=== PATIENT | female | born 1995 | race African-American/Black ===

== ENCOUNTER 2019-10-01 18:17 | Emergency (ER) | payer OTHER ==
[~2019-10-01] VITALS: Ht 149.9 cm; Wt 58.4 kg
[2019-10-01] MEDS ORDERED: LANTUS U (18:26)
[2019-10-01] MEDS ORDERED: HUMALOG SS (18:26)
[2019-10-01 19:13] LABS: EOS % 0.2 % (0.0-3.0); HEMATOCRIT 40.1 % (36.0-47.0); HEMOGLOBIN 14.1 g/dl (12.0-15.5); LYMPH # 2.3 10^3/uL (1.5-5.0); LYMPH % 36.7 % (24.0-44.0); MEAN CORPUSCULAR HEMOGLOBIN 31.3 pg (27.0-33.0); MEAN CORPUSCULAR HGB CONC 35.2 g/dl (32.0-36.5); MEAN CORPUSCULAR VOLUME 89.1 fl (80.0-96.0); MONO # 0.5 10^3/uL (0.0-0.8); MONO % 7.6 % (0.0-5.0); NEUTROPHILS # 3.5 10^3/uL (1.5-8.5); NEUTROPHILS % 55.3 % (36.0-66.0); PLATELET COUNT, AUTOMATED 282 10^3/uL (150-450); WHITE BLOOD COUNT 6.3 10^3/uL (4.0-10.0)
[2019-10-01 19:34] LABS: BLOOD UREA NITROGEN 7 MG/DL (7-18); CALCIUM LEVEL 9.1 MG/DL (8.5-10.1); CARBON DIOXIDE LEVEL 19 MEQ/L (21-32); CHLORIDE LEVEL 107 MEQ/L (98-107); CREATININE FOR GFR 0.76 MG/DL (0.55-1.30); GLOMERULAR FILTRATION RATE > 60.0 (>60); GLUCOSE, FASTING 283 MG/DL (70-100); POTASSIUM SERUM 3.2 MEQ/L (3.5-5.1); SODIUM LEVEL 139 MEQ/L (136-145)
[2019-10-01] MEDS ORDERED: POTASSIUM CHLORIDE 10 MEQ SR TABLET PO ONE (20:30)
[2019-10-01 20:43] LABS: HCG, SERUM QUALITATIVE NEGATIVE (NEGATIVE)
[2019-10-01 20:45] LABS: ALBUMIN 3.3 GM/DL (3.2-5.2); ALT/SGPT 18 U/L (12-78); BILIRUBIN,DIRECT 0.1 MG/DL (0.0-0.2); BILIRUBIN,TOTAL 0.3 MG/DL (0.2-1.0); LIPASE 37 U/L (73-393); TOTAL PROTEIN 6.7 GM/DL (6.4-8.2)
[2019-10-01] MEDS ORDERED: ZOFR4TAB16 PO (21:14)
[2019-10-01 21:31] VITALS: BP 120/78
== END 2019-10-01 21:46 | disposition home or self-care (01) ==
LOC: M ED 18:17
DX: E87.6 Hypokalemia (principal); E11.65 Type 2 diabetes mellitus with hyperglycemia; M54.6 Pain in thoracic spine; G62.9 Polyneuropathy, unspecified; F33.9 Major depressive disorder, recurrent, unspecified; F41.9 Anxiety disorder, unspecified; F43.10 Post-traumatic stress disorder, unspecified; Z79.4 Long term (current) use of insulin

== ENCOUNTER 2019-11-21 10:59 | Inpatient (IN) | payer OTHER ==
[2019-11-21] VITALS (8 sets, daily range): BP systolic 115–145; BP diastolic 69–95
[~2019-11-21] VITALS: Ht 149.9 cm; Wt 57.9 kg
[~2019-11-21 10:59] MED LIST: HUMALOG SS; LANTUS U; ZOFR4TAB16 PO
[2019-11-21] MEDS ORDERED: LANTINJ4 SC ×2 (11:07)
[2019-11-21] MEDS ORDERED: NS 1,000 ML IV ONE ×2 (11:30→13:45)
[2019-11-21 11:41] LABS: BASO % 0.2 % (0.0-1.0); HEMATOCRIT 51.1 % (36.0-47.0); HEMOGLOBIN 18.2 g/dl (12.0-15.5); LYMPH # 2.2 10^3/uL (1.5-5.0); LYMPH % 14.4 % (24.0-44.0); MEAN CORPUSCULAR HEMOGLOBIN 31.2 pg (27.0-33.0); MEAN CORPUSCULAR HGB CONC 35.6 g/dl (32.0-36.5); MEAN CORPUSCULAR VOLUME 87.7 fl (80.0-96.0); MONO % 6.6 % (0.0-5.0); NEUTROPHILS # 11.8 10^3/uL (1.5-8.5); NEUTROPHILS % 78.3 % (36.0-66.0); PLATELET COUNT, AUTOMATED 464 10^3/uL (150-450); RED BLOOD COUNT 5.83 10^6/uL (4.00-5.40); WHITE BLOOD COUNT 15.1 10^3/uL (4.0-10.0)
[2019-11-21 13:16] LABS: HEMOGLOBIN A1c 11.5 %
[2019-11-21] MEDS ORDERED: ONDANSETRON 4MG/2ML VIAL IV ONE (13:30)
[2019-11-21 14:05] LABS: ALBUMIN 4.2 GM/DL (3.2-5.2); ALT/SGPT 27 U/L (12-78); BILIRUBIN,DIRECT < 0.1 MG/DL (0.0-0.2); BILIRUBIN,TOTAL 0.5 MG/DL (0.2-1.0); LIPASE < 10 U/L (73-393); TOTAL PROTEIN 10.8 GM/DL (6.4-8.2)
[2019-11-21] MEDS ORDERED: NS 1,000 ML IV SCH ×2 (14:11→14:45)
[2019-11-21] MEDS ORDERED: ACETAMINOPHEN TAB 650MG DOSE (2X325MG) PO PRN (14:15)
[2019-11-21] MEDS ORDERED: KCL 10MEQ/100ML SWI (KRUN) 10 MEQ in IV 1 EA IV ONE (14:30)
[2019-11-21] MEDS ORDERED: KCL 40MEQ in NS 1000ML 1,000 ML IV SCH (14:30)
[2019-11-21] MEDS ORDERED: KCL 20MEQ IN 100ML SWI (KRUN) 20 MEQ in IV 1 EA IV ONE ×2 (14:30)
--- NOTE | 2019-11-21 14:44 | HPEPDOC ---
General Date of Admission 11/21/19 Date of Service: Nov 21, 2019 Chief Complaint The patient is a 24-year-old female admitted with a reason for visit of Vomiting. Source: Patient Exam Limitations: No limitations Timing/Duration: 24 hours Severity: Moderate Associated Symptoms: Nausea, Vomiting History of Present Illness Patient is 24 years old female with past medical history of type 1 diabetes, multiple DKA in the past presented to the hospital with nausea, vomiting, and abdominal pain. Patient stated that for past 2 days she lost appetite, developed multiple episodes of vomiting associated with diffuse abdominal pain. Also patient complaining of polyuria In emergency room patient was found to have glucose level of 283, bicarbonate 11, anion gap of 17. Blood gas showed pH 7.2, urine positive for ketones. Patient denied fever, palpitations, headache, diarrhea. Home Medications Scheduled Insulin Glargine,Hum.rec.anlog (Lantus Solostar) 100 Unit/1 Ml Insuln.pen, 30 UNIT SC QPM, (Reported) Insulin Glargine,Hum.rec.anlog (Lantus Solostar) 100 Unit/1 Ml Insuln.pen, 15 UNIT SC QAM, (Reported) Miscellaneous Medications [Humalog Ss] , (Reported) Allergies Coded Allergies: No Known Allergies (Unverified , 10/01/19) Past Medical History Medical History Type 1 diabetes Surgical History Family History I reviewed family history and found not pertinent Social History * Smoker: Denies Alcohol: Denies Drugs: denies A-FIB/CHADSVASC A-FIB History Current/History of A-Fib/PAF?: No Current PO Anticoag Therapy: No Review of Systems Constitutional: Reports: Chills, Malaise, Fatigue; Denies: Fever Eyes: Denies: Pain ENT: Denies: Head Aches Skin: Denies: Rash, Lesions Pulmonary: Denies: Dyspnea, Cough Cardiovascular: Denies: Chest Pain, Palpitations Gastrointestinal: Reports: Nausea, Vomiting, Abdominal Pain Genitourinary: Denies: Hematuria Hematologic: Denies: Bruising, Bleeding Excessively Endocrine: Reports: Polyuria Musculoskeletal: Denies: Neck Pain Neurological: Denies: Weakness Psych: Reports: Mood Normal Physical Examination General Exam: Positive: Alert, Cooperative Eye Exam: Positive: PERRLA ENT Exam: Positive: Atraumatic Neck Exam: Positive: Supple; Negative: JVD Chest Exam: Positive: Clear to auscultation Heart Exam: Positive: Rate Normal Telemetry: Positive: No significant arrhythmia Abdomen Exam: Positive: Normal bowel sounds Extremity Exam: Negative: Clubbing, Cyanosis Skin Exam: Positive: Nl turgor and temperature Neuro Exam: Positive: Normal Gait, Strength at 5/5 X4 ext, Cranial Nerves 3-12 NL Psych Exam: Positive: Mental status NL, Oriented x 3 Vital Signs Vital Signs Date Time Temp Pulse Resp B/P (MAP) Pulse Ox O2 Delivery O2 Flow Rate FiO2 11/21/19 12:20 112 16 138/99 (112) 99 Room Air 11/21/19 11:01 99.1 Laboratory Data Labs 24H Laboratory Tests 2 11/21/19 11:28: Urine Color AKILA, Urine Appearance CLOUDYH, Urine pH 6.0, Urine Specific Blackwell 1.031, Urine Protein 3+H, Urine Glucose (UA) 2+H, Urine Ketones 2+H, Urine Blood NEGATIVE, Urine Nitrite NEGATIVE, Urine Bilirubin 1+H, Urine Urobilinogen 2.0H, Urine Leukocyte Esterase NEGATIVE, Urine WBC (Auto) 13H, Urine RBC (Auto) 2, Urine Hyaline Casts (Auto) 20, Urine Bacteria (Auto) N EGATIVE, Urine Squamous Epithelial Cells 16, Urine Mucus (Auto) SMALL, Urine Sperm (Auto) , Total Bilirubin 0.5, Direct Bilirubin < 0.1, Aspartate Amino Transf (AST/SGOT) 82H, Alanine Aminotransferase (ALT/SGPT) 27, Alkaline Phosphatase 142H, Total Protein 10.8H, Albumin 4.2, Albumin/Globulin Ratio 0.64L, Lipase < 10L 11/21/19 11:29: Immature Granulocyte % (Auto) 0.5, Neutrophils (%) (Auto) 78.3H, Lymphocytes (%) (Auto) 14.4L, Monocytes (%) (Auto) 6.6H, Eosinophils (%) (Auto) 0.0, Basophils (%) (Auto) 0.2, Neutrophils # (Auto) 11.8H, Lymphocytes # (Auto) 2.2, Monocytes # (Auto) 1.0H, Eosinophils # (Auto) 0.0, Basophils # (Auto) 0.0, Nucleated Red Blood Cells % (auto) 0.0, POC Glucose (Misc Panel) 143H, POC Sodium (Misc Panel) 133L, POC Potassium (Misc Panel) 5.8H, POC Chloride (Misc Panel) 105, POC Total CO2 (Misc Panel) 16.0L, POC Blood Urea Nitrogen (Misc Panel 34H, POC Ionized Calcium (Misc Panel) 4.7, POC Creatinine (Misc Panel) 0.9, POC Hematocrit (Misc Panel) 55.0H 11/21/19 11:30: Estimated Mean Plasma Glucose 283H, Hemoglobin A1c 11.5 11/21/19 11:33: POC Beta HCG, Quantitative < 5.0 11/21/19 12:18: POC pH (Misc Panel) 7.256L, POC Base Excess (Misc Panel) -17.0L, POC Saturated Percent O2 (Misc) 97, POC pO2 (Misc Panel) 104.0, POC pCO2 (Misc Panel) 23.6L, POC HCO3 (Misc Panel) 10.5L, POC Total CO2 (Misc Panel) 11.0L 11/21/19 13:30: Bedside Glucose (Misc Panel) 183H CBC/BMP Laboratory Tests 11/21/19 11:29 Microbiology Microbiology 11/21/19 Urine Culture, Received Pending Assessment/Plan Patient is 24 years old female with past medical history of type 1 diabetes, multiple DKA in the past presented to the hospital with nausea, vomiting, and abdominal pain. Patient stated that for past 2 days she lost appetite, developed multiple episodes of vomiting associated with diffuse abdominal pain. Also patient complaining of polyuria In emergency room patient was found to have glucose level of 283, bicarbonate 11, anion gap of 17. Blood gas showed pH 7.2, urine positive for ketones. Patient denied fever, palpitations, headache, diarrhea Problems (1) DKA (diabetic ketoacidoses) Status: Acute Problem Text: Patient developed abdominal pain, nausea, vomiting. Patient has poorly controlled diabetes Hb A1c 11.5 Ketones in the urine, blood gas showed pH 7.2, bicarbonate 10, glucose level 283 I will start insulin drip BMP every 4 hours Potassium level every 2 hours Glucose level every 1 hour (2) Vomiting Status: Acute Problem Text: Secondary to DKA Zofran when necessary (3) Leukocytosis Status: Acute Problem Text: Most likely reactive secondary to DKA Patient afebrile We'll check lactic acid, blood culture Plan / VTE VTE Prophylaxis Ordered?: Yes KARINA LLAMAS DO Nov 21, 2019 14:44
[2019-11-21] MEDS ORDERED: D5W/0.45% SODIUM CHLORIDE 1,000 ML IV SCH (15:30)
[2019-11-21] MEDS ORDERED: METOCLOPRAMIDE INJ 10MG/2ML VIAL (J2765 PER 1) IV ONE (15:30)
[2019-11-21] MEDS: INSULIN HUMAN REGULAR 100 UNITS in NS 99 ML IV SCH ×2 (15:38→21:09)
[2019-11-21] MEDS: INSULIN IV RATE CHANGE DOCUMENTATION ML/HR XX SCH ×6 (15:56→21:20)
[2019-11-21 16:38] LABS: OSMOLALITY SERUM 293 MOSM/KG (275-295)
[2019-11-21 16:44] LABS: ACETONE/KETONE 42.47 MG/DL (<2.81); ALBUMIN 3.4 GM/DL (3.2-5.2); ALT/SGPT 17 U/L (12-78); BILIRUBIN,TOTAL 1.3 MG/DL (0.2-1.0); BLOOD UREA NITROGEN 20 MG/DL (7-18); CALCIUM LEVEL 9.1 MG/DL (8.5-10.1); CARBON DIOXIDE LEVEL 13 MEQ/L (21-32); CHLORIDE LEVEL 106 MEQ/L (98-107); CREATININE FOR GFR 0.86 MG/DL (0.55-1.30); GLOMERULAR FILTRATION RATE > 60.0 (>60); GLUCOSE, FASTING 168 MG/DL (70-100); POTASSIUM SERUM 3.6 MEQ/L (3.5-5.1); SODIUM LEVEL 136 MEQ/L (136-145); TOTAL PROTEIN 7.4 GM/DL (6.4-8.2)
[2019-11-21] MEDS ORDERED: KCL 20MEQ IN D5/.45NACL 1000ML As Ordered ONE (17:07)
[2019-11-21] MEDS ORDERED: KCL 20MEQ IN D5/0.45NS 1000ML 1,000 ML IV SCH ×2 (17:30→19:30)
[2019-11-21] MEDS: ONDANSETRON 4MG/2ML VIAL IV PRN (17:59)
[2019-11-21 18:27] LABS: BLOOD UREA NITROGEN 19 MG/DL (7-18); CALCIUM LEVEL 9.4 MG/DL (8.5-10.1); CARBON DIOXIDE LEVEL 17 MEQ/L (21-32); CHLORIDE LEVEL 107 MEQ/L (98-107); GLOMERULAR FILTRATION RATE > 60.0 (>60); GLUCOSE, FASTING 88 MG/DL (70-100); PHOSPHORUS LEVEL 1.6 MG/DL (2.5-4.9); POTASSIUM SERUM 2.8 MEQ/L (3.5-5.1); SODIUM LEVEL 137 MEQ/L (136-145)
[2019-11-21] MEDS: KCL 10MEQ/100ML SWI (KRUN) 10 MEQ in IV 1 EA IV SCH ×2 (18:45→20:54)
[2019-11-21] MEDS: KCL 40MEQ IN D5/0.45NS 1000ML 1,000 ML IV SCH (18:50)
[2019-11-21 19:14] LABS: MAGNESIUM LEVEL 1.8 MG/DL (1.8-2.4)
[2019-11-21] MEDS: METOCLOPRAMIDE INJ 10MG/2ML VIAL (J2765 PER 1) IV PRN (20:53)
[2019-11-21] MEDS: HEPARIN SOD (PORCINE) 5000UNITS/ML VIAL (J1644 PER 1000UNITS) SC SCH (21:00)
[2019-11-21 22:44] LABS: BLOOD UREA NITROGEN 16 MG/DL (7-18); CALCIUM LEVEL 9.1 MG/DL (8.5-10.1); CARBON DIOXIDE LEVEL 17 MEQ/L (21-32); CHLORIDE LEVEL 109 MEQ/L (98-107); CREATININE FOR GFR 0.86 MG/DL (0.55-1.30); GLOMERULAR FILTRATION RATE > 60.0 (>60); GLUCOSE, FASTING 126 MG/DL (70-100); POTASSIUM SERUM 3.9 MEQ/L (3.5-5.1); SODIUM LEVEL 136 MEQ/L (136-145)
[2019-11-22] MEDS: ONDANSETRON 4MG/2ML VIAL IV PRN ×3 (00:38→14:27)
--- NOTE | 2019-11-22 01:06 | ECGEPIP ---
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
[2019-11-22 03:02] LABS: BLOOD UREA NITROGEN 13 MG/DL (7-18); CALCIUM LEVEL 8.8 MG/DL (8.5-10.1); CARBON DIOXIDE LEVEL 17 MEQ/L (21-32); CHLORIDE LEVEL 109 MEQ/L (98-107); CREATININE FOR GFR 0.79 MG/DL (0.55-1.30); GLOMERULAR FILTRATION RATE > 60.0 (>60); GLUCOSE, FASTING 129 MG/DL (70-100); PHOSPHORUS LEVEL 1.6 MG/DL (2.5-4.9); POTASSIUM SERUM 3.8 MEQ/L (3.5-5.1); SODIUM LEVEL 137 MEQ/L (136-145)
[2019-11-22] MEDS: KCL 40MEQ IN D5/0.45NS 1000ML 1,000 ML IV SCH ×2 (03:43→11:31)
[2019-11-22 04:00] VITALS: BP 115/72
[2019-11-22] MEDS: METOCLOPRAMIDE INJ 10MG/2ML VIAL (J2765 PER 1) IV PRN ×2 (05:28→16:12)
[2019-11-22 07:01] LABS: ALBUMIN 3.1 GM/DL (3.2-5.2); ALT/SGPT 15 U/L (12-78); BILIRUBIN,TOTAL 0.7 MG/DL (0.2-1.0); BLOOD UREA NITROGEN 11 MG/DL (7-18); CALCIUM LEVEL 8.8 MG/DL (8.5-10.1); CARBON DIOXIDE LEVEL 18 MEQ/L (21-32); CHLORIDE LEVEL 109 MEQ/L (98-107); CREATININE FOR GFR 0.71 MG/DL (0.55-1.30); GLOMERULAR FILTRATION RATE > 60.0 (>60); GLUCOSE, FASTING 132 MG/DL (70-100); MAGNESIUM LEVEL 1.6 MG/DL (1.8-2.4); PHOSPHORUS LEVEL 1.7 MG/DL (2.5-4.9); POTASSIUM SERUM 3.7 MEQ/L (3.5-5.1); SODIUM LEVEL 136 MEQ/L (136-145); TOTAL PROTEIN 6.9 GM/DL (6.4-8.2)
[2019-11-22 08:00] VITALS: BP 138/95
[2019-11-22] MEDS ORDERED: MAG SULF 1GM/100ML (MAG RUN) 1 GM in IV 1 EA IV ONE (08:15)
[2019-11-22 08:26] LABS: BASO % 0.2 % (0.0-1.0); EOS % 0.1 % (0.0-3.0); HEMATOCRIT 40.8 % (36.0-47.0); LYMPH # 3.1 10^3/uL (1.5-5.0); LYMPH % 34.6 % (24.0-44.0); MEAN CORPUSCULAR HEMOGLOBIN 31.5 pg (27.0-33.0); MEAN CORPUSCULAR HGB CONC 35.5 g/dl (32.0-36.5); MEAN CORPUSCULAR VOLUME 88.5 fl (80.0-96.0); MONO # 0.9 10^3/uL (0.0-0.8); MONO % 9.8 % (0.0-5.0); NEUTROPHILS # 4.9 10^3/uL (1.5-8.5); NEUTROPHILS % 54.9 % (36.0-66.0); RED BLOOD COUNT 4.61 10^6/uL (4.00-5.40); WHITE BLOOD COUNT 8.9 10^3/uL (4.0-10.0)
[2019-11-22 08:40] LABS: HEMOGLOBIN 14.5 g/dl (12.0-15.5); PLATELET COUNT, AUTOMATED 334 10^3/uL (150-450)
[2019-11-22] MEDS: HEPARIN SOD (PORCINE) 5000UNITS/ML VIAL (J1644 PER 1000UNITS) SC SCH ×2 (08:45→21:00)
[2019-11-22] MEDS: INSULIN IV RATE CHANGE DOCUMENTATION ML/HR XX SCH ×5 (09:15→13:04)
[2019-11-22 10:19] LABS: BLOOD UREA NITROGEN 10 MG/DL (7-18); CALCIUM LEVEL 8.6 MG/DL (8.5-10.1); CARBON DIOXIDE LEVEL 18 MEQ/L (21-32); CHLORIDE LEVEL 112 MEQ/L (98-107); GLOMERULAR FILTRATION RATE > 60.0 (>60); GLUCOSE, FASTING 164 MG/DL (70-100); POTASSIUM SERUM 3.5 MEQ/L (3.5-5.1); SODIUM LEVEL 138 MEQ/L (136-145)
[2019-11-22 12:00] VITALS: BP 128/86
[2019-11-22] MEDS ORDERED: GLUCOSE 4GM CHEW TABLET PO PRN (13:00)
[2019-11-22] MEDS ORDERED: GLUCAGON INJ 1MG VIAL SC PRN (13:00)
[2019-11-22] MEDS ORDERED: DEXTROSE 50% 50 ML SYRINGE IV PRN (13:00)
[2019-11-22] MEDS: LEVEMIR (INSULIN DETEMIR) 1 UNITS/0.01ML SC SCH ×2 (13:04→21:00)
[2019-11-22] MEDS ORDERED: POTASSIUM CHLORIDE 10 MEQ SR TABLET PO ONE (14:30)
--- NOTE | 2019-11-22 14:33 | IPNPDOC ---
Text Note Date of Service The patient was seen on 11/22/19. NOTE Subjective: Patient stated that she is doing better today, abdominal pain res olved, no vomiting. Patient denied fever, chills, chest pain, palpitations, diarrhea or dysuria Patient was able tolerate diabetes diet. VITAL SIGNS: Please see below. GENERAL: awake, alert, NAD HEENT: NCAT, anicteric sclera, LAUREN NECK: supple, no JVD CARDIOVASCULAR EXAMINATION: NS1S2, regular rate/rhythm RESPIRATORY EXAMINATION: CTA b/l, no wheezes/rales/rhonchi ABDOMINAL EXAMINATION: positive bowel sounds x 4, NT EXTREMITIES: no cyanosis, clubbing, edema SKIN: warm, no rashes. NEUROLOGICAL EXAMINATION: AAO x 3, no motor/sensory deficits PSYCHIATRIC EXAMINATION: calm, normal affect Assessment/Plan Patient is 24 years old female with past medical history of type 1 diabetes, multiple DKA in the past presented to the hospital with nausea, vomiting, and abdominal pain. Patient stated that for past 2 days she lost appetite, developed multiple episodes of vomiting associated with diffuse abdominal pain. Also patient complaining of polyuria In emergency room patient was found to have glucose level of 283, bicarbonate 11, anion gap of 17. Blood gas showed pH 7.2, urine positive for ketones. Patient denied fever, palpitations, headache, diarrhea. Patient has been treated with insulin drip Problems (1) DKA (diabetic ketoacidoses)/ diabetes type 1 Patient developed abdominal pain, nausea, vomiting. Patient has poorly controlled diabetes Hb A1c 11.5 Ketones in the urine, blood gas showed pH 7.2, bicarbonate 10, glucose level 283 I started insulin drip on 11/21/19, on 11/21 anion gap closed, bicarb 18, glucose levels under control. Patient started to eat and tolerate food Detemir 15 units twice a day Insulin sliding scale (2) Vomiting Resolved Secondary to DKA Zofran when necessary (3) Leukocytosis Resolved Most likely reactive secondary to DKA Patient afebrile We'll check lactic acid, blood culture Hypokalemia Replenished VS,Fishbone, I+O VS, Fishbone, I+O Laboratory Tests 11/21/19 15:53 11/21/19 17:44 11/21/19 22:01 11/22/19 02:05 11/22/19 06:09 11/22/19 06:14 11/22/19 09:46 Vital Signs Date Time Temp Pulse Resp B/P (MAP) Pulse Ox O2 Delivery O2 Flow Rate FiO2 11/22/19 12:00 97.8 92 18 128/86 (100) 94 Room Air I&O- Last 24 Hours up to 6 AM 11/22/19 06:00 Intake Total 2500 ml Output Total 200 ml Balance 2300 ml KARINA LLAMAS DO Nov 22, 2019 14:33
[2019-11-22 15:01] LABS: BLOOD UREA NITROGEN 7 MG/DL (7-18); CALCIUM LEVEL 9.7 MG/DL (8.5-10.1); CARBON DIOXIDE LEVEL 19 MEQ/L (21-32); CHLORIDE LEVEL 109 MEQ/L (98-107); CREATININE FOR GFR 0.78 MG/DL (0.55-1.30); GLOMERULAR FILTRATION RATE > 60.0 (>60); GLUCOSE, FASTING 84 MG/DL (70-100); SODIUM LEVEL 138 MEQ/L (136-145)
[2019-11-22 16:00] VITALS: BP 124/84
[2019-11-22] MEDS: HumaLOG INSULIN (NovoLOG) PER UNIT SC SCH (18:05)
[2019-11-22 18:19] LABS: BLOOD UREA NITROGEN 7 MG/DL (7-18); CALCIUM LEVEL 8.6 MG/DL (8.5-10.1); CARBON DIOXIDE LEVEL 16 MEQ/L (21-32); CHLORIDE LEVEL 111 MEQ/L (98-107); CREATININE FOR GFR 0.76 MG/DL (0.55-1.30); GLOMERULAR FILTRATION RATE > 60.0 (>60); GLUCOSE, FASTING 168 MG/DL (70-100); POTASSIUM SERUM 3.5 MEQ/L (3.5-5.1); SODIUM LEVEL 136 MEQ/L (136-145)
[2019-11-22] MEDS ORDERED: HumaLOG INSULIN (NovoLOG) PER UNIT SC SCH (21:00)
[2019-11-22 22:00] VITALS: BP 120/79
[2019-11-22] MEDS ORDERED: LEVEMIR (INSULIN DETEMIR) 1 UNITS/0.01ML SC ONE (23:00)
[2019-11-22 23:09] LABS: BLOOD UREA NITROGEN 7 MG/DL (7-18); CALCIUM LEVEL 8.9 MG/DL (8.5-10.1); CARBON DIOXIDE LEVEL 18 MEQ/L (21-32); CHLORIDE LEVEL 110 MEQ/L (98-107); CREATININE FOR GFR 0.75 MG/DL (0.55-1.30); GLOMERULAR FILTRATION RATE > 60.0 (>60); GLUCOSE, FASTING 102 MG/DL (70-100); POTASSIUM SERUM 3.9 MEQ/L (3.5-5.1); SODIUM LEVEL 137 MEQ/L (136-145)
[2019-11-23 02:46] LABS: POTASSIUM RANDOM URINE 18.9 MEQ/L
[2019-11-23 06:00] VITALS: BP 123/72
[2019-11-23] MEDS: HumaLOG INSULIN (NovoLOG) PER UNIT SC SCH (07:30)
[2019-11-23 08:40] LABS: HEMOGLOBIN 14.1 g/dl (12.0-15.5); MEAN CORPUSCULAR HEMOGLOBIN 31.5 pg (27.0-33.0); MEAN CORPUSCULAR HGB CONC 35.3 g/dl (32.0-36.5); MEAN CORPUSCULAR VOLUME 89.3 fl (80.0-96.0); PLATELET COUNT, AUTOMATED 329 10^3/uL (150-450); RED BLOOD COUNT 4.48 10^6/uL (4.00-5.40); WHITE BLOOD COUNT 7.9 10^3/uL (4.0-10.0)
[2019-11-23] MEDS: HEPARIN SOD (PORCINE) 5000UNITS/ML VIAL (J1644 PER 1000UNITS) SC SCH (09:00)
[2019-11-23] MEDS ORDERED: LEVEMIR (INSULIN DETEMIR) 1 UNITS/0.01ML SC SCH (09:00)
[2019-11-23 09:07] LABS: ALBUMIN 3.2 GM/DL (3.2-5.2); ALT/SGPT 21 U/L (12-78); BILIRUBIN,TOTAL 0.6 MG/DL (0.2-1.0); BLOOD UREA NITROGEN 5 MG/DL (7-18); CALCIUM LEVEL 9.2 MG/DL (8.5-10.1); CARBON DIOXIDE LEVEL 25 MEQ/L (21-32); CHLORIDE LEVEL 109 MEQ/L (98-107); CREATININE FOR GFR 0.63 MG/DL (0.55-1.30); GLOMERULAR FILTRATION RATE > 60.0 (>60); GLUCOSE, FASTING 77 MG/DL (70-100); POTASSIUM SERUM 4.6 MEQ/L (3.5-5.1); SODIUM LEVEL 140 MEQ/L (136-145); TOTAL PROTEIN 7.1 GM/DL (6.4-8.2)
--- NOTE | 2019-11-23 17:06 | DS.PDOC ---
Discharge Summary General Date of Admission Nov 21, 2019 at 14:11 Date of Discharge 11/23/19 Discharge Summary PROCEDURES PERFORMED DURING STAY: [None]. ADMITTING DIAGNOSES: DKA (diabetic ketoacidoses)/ diabetes type 1 Vomiting Leukocytosis DISCHARGE DIAGNOSES: DKA (diabetic ketoacidoses)/ diabetes type 1 Vomiting Leukocytosis COMPLICATIONS/CHIEF COMPLAINT: Dka,Vomiting. HISTORY OF PRESENT ILLNESS: Patient is 24 years old female with past medical history of type 1 diabetes, multiple DKA in the past presented to the hospital with nausea, vomiting, and abdominal pain. Patient stated that for past 2 days she lost appetite, developed multiple episodes of vomiting associated with diffuse abdominal pain. Also patient complaining of polyuria In emergency room patient was found to have glucose level of 283, bicarbonate 11, anion gap of 17. Blood gas showed pH 7.2, urine positive for ketones. Patie nt denied fever, palpitations, headache, diarrhea. Patient has been treated with insulin drip HOSPITAL COURSE: During hospital stay the following issues addressed (1) DKA (diabetic ketoacidoses)/ diabetes type 1 Patient developed abdominal pain, nausea, vomiting. Patient has poorly controlled diabetes Hb A1c 11.5 Ketones in the urine, blood gas showed pH 7.2, bicarbonate 10, glucose level 283 I started insulin drip on 11/21/19, on 11/21 anion gap closed, bicarb 18, glucose levels under control. Patient started to eat and tolerate food Detemir 15 units twice a day Insulin sliding scale (2) Vomiting Resolved Secondary to DKA Zofran when necessary (3) Leukocytosis Resolved Most likely reactive secondary to DKA Patient afebrile We'll check lactic acid, blood culture DISCHARGE MEDICATIONS: Please see below. ALLERGIES: Please see below. PHYSICAL EXAMINATION ON DISCHARGE: VITAL SIGNS: Please see below. GENERAL: awake, alert, NAD HEENT: NCAT, anicteric sclera, LAUREN NECK: supple, no JVD CARDIOVASCULAR EXAMINATION: NS1S2, regular rate/rhythm RESPIRATORY EXAMINATION: CTA b/l, no wheezes/rales/rhonchi ABDOMINAL EXAMINATION: positive bowel sounds x 4, NT EXTREMITIES: no cyanosis, clubbing, edema SKIN: warm, no rashes. NEUROLOGICAL EXAMINATION: AAO x 3, no motor/sensory deficits PSYCHIATRIC EXAMINATION: calm, normal affect LABORATORY DATA: Please see below. PROGNOSIS: fair ACTIVITY: [As tolerated]. DIET:diabetes DISPOSITION: Home, Self-Care. 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 TIME SPENT ON DISCHARGE: Greater than 20 minutes. Vital Signs/I&Os Vital Signs Date Time Temp Pulse Resp B/P (MAP) Pulse Ox O2 Delivery O2 Flow Rate FiO2 11/23/19 06:00 98.2 99 18 123/72 (89) 100 11/22/19 22:00 Room Air I&O- Last 24 Hours up to 6 AM 11/23/19 06:00 Intake Total 2933 ml Output Total 1295 ml Balance 1638 ml Laboratory Data Labs 24H Laboratory Tests 2 11/22/19 17:21: Bedside Glucose (Misc Panel) 178H 11/22/19 17:41: Anion Gap 9, Glomerular Filtration Rate > 60.0, Calcium Level 8.6 11/22/19 20:45: Bedside Glucose (Misc Panel) 49L 11/22/19 21:44: Bedside Glucose (Misc Panel) 53L 11/22/19 22:13: Bedside Glucose (Misc Panel) 62L 11/22/19 22:21: Anion Gap 9, Glomerular Filtration Rate > 60.0, Calcium Level 8.9 11/22/19 22:46: Bedside Glucose (Misc Panel) 130H 11/23/19 01:01: Bedside Glucose (Misc Panel) 233H 11/23/19 02:16: Urine Random Sodium 15, Urine Random Potassium 18.9, Urine Random Chloride 124 11/23/19 03:20: Bedside Glucose (Misc Panel) 162H 11/23/19 05:28: Bedside Glucose (Misc Panel) 102 11/23/19 07:24: Bedside Glucose (Misc Panel) 95 11/23/19 08:24: Nucleated Red Blood Cells % (auto) 0.0, Anion Gap 6L, Glomerular Filtration Rate > 60.0, Calcium Level 9.2, Total Bilirubin 0.6, Aspartate Amino Transf (AST/SGOT) 21, Alanine Aminotransferase (ALT/SGPT) 21, Alkaline Phosphatase 105, Total Protein 7.1, Albumin 3.2, Albumin/Globulin Ratio 0.82L CBC/BMP Laboratory Tests 11/22/19 17:41 11/22/19 22:21 11/23/19 08:24 FSBS Laboratory Tests Test 11/22/19 17:21 11/22/19 20:45 11/22/19 21:44 11/22/19 22:13 Range/Units Bedside Glucose (Misc Panel) 178 49 53 62 70-105 MG/DL Test 11/22/19 22:46 11/23/19 01:01 11/23/19 03:20 11/23/19 05:28 Range/Units Bedside Glucose (Misc Panel) 130 233 162 102 70-105 MG/DL Test 11/23/19 07:24 Range/Units Bedside Glucose (Misc Panel) 95 70-105 MG/DL Microbiology Microbiology 11/21/19 Blood Culture - Preliminary, Resulted No Growth after 48 hours. All Specime... 11/21/19 Urine Culture - Final, Complete Staphylococcus Epidermidis Discharge Medications Scheduled Insulin Glargine,Hum.rec.anlog (Lantus Solostar) 100 Unit/1 Ml Insuln.pen, 30 UNIT SC QPM, (Reported) Insulin Glargine,Hum.rec.anlog (Lantus Solostar) 100 Unit/1 Ml Insuln.pen, 15 UNIT SC QAM, (Reported) Miscellaneous Medications [Humalog Ss] , (Reported) Allergies Coded Allergies: No Known Allergies (Unverified , 10/01/19) KARINA LLAMAS DO Nov 23, 2019 17:05
== END 2019-11-23 12:16 | disposition home or self-care (01) | DRG 639 ==
LOC: M ED 10:59 → M ED INP 14:11 → ENRESERV 14:24 → M RR INP 15:29 → M MSPAV 11-22 16:00
PROVIDERS: ADMIT Internal Medicine; ATTEND Internal Medicine
DX: E10.10 Type 1 diabetes mellitus with ketoacidosis without coma (principal); E10.65 Type 1 diabetes mellitus with hyperglycemia; D72.829 Elevated white blood cell count, unspecified; E87.6 Hypokalemia; Z79.4 Long term (current) use of insulin

== ENCOUNTER 2019-12-02 00:57 | Inpatient (IN) | payer OTHER ==
[~2019-12-02] VITALS: Ht 149.9 cm; Wt 62.3 kg
[~2019-12-02 00:57] MED LIST changes: +LANTINJ4 SC
[2019-12-02] MEDS ORDERED: TRES100I SC (01:12)
[2019-12-02] MEDS ORDERED: NS 1,000 ML IV ONE ×2 (01:30→04:15)
[2019-12-02 01:36] LABS: BASO % 0.1 % (0.0-1.0); EOS % 0.2 % (0.0-3.0); HEMATOCRIT 37.9 % (36.0-47.0); HEMOGLOBIN 12.5 g/dl (12.0-15.5); LYMPH # 2.1 10^3/uL (1.5-5.0); MEAN CORPUSCULAR HEMOGLOBIN 31.3 pg (27.0-33.0); MEAN CORPUSCULAR VOLUME 94.8 fl (80.0-96.0); MONO # 0.8 10^3/uL (0.0-0.8); MONO % 7.4 % (0.0-5.0); NEUTROPHILS % 72.9 % (36.0-66.0); PLATELET COUNT, AUTOMATED 327 10^3/uL (150-450); WHITE BLOOD COUNT 10.9 10^3/uL (4.0-10.0)
[2019-12-02 02:18] LABS: ACETAMINOPHEN LEVEL < 2.0 UG/ML (10.0-30.0); ALBUMIN 3.5 GM/DL (3.2-5.2); ALT/SGPT 19 U/L (12-78); BILIRUBIN,DIRECT < 0.1 MG/DL (0.0-0.2); BILIRUBIN,TOTAL 0.3 MG/DL (0.2-1.0); BLOOD UREA NITROGEN 9 MG/DL (7-18); CALCIUM LEVEL 8.8 MG/DL (8.5-10.1); CARBON DIOXIDE LEVEL 14 MEQ/L (21-32); CHLORIDE LEVEL 107 MEQ/L (98-107); CPK CREATINE PHOSPHOKINASE 32 U/L (26-192); CREATININE FOR GFR 0.75 MG/DL (0.55-1.30); GLOMERULAR FILTRATION RATE > 60.0 (>60); GLUCOSE, FASTING 325 MG/DL (70-100); POTASSIUM SERUM 3.6 MEQ/L (3.5-5.1); SALICYLATE LEVEL 2.3 MG/DL (5.0-30.0); SODIUM LEVEL 137 MEQ/L (136-145)
[2019-12-02 02:19] LABS: ETHYL ALCOHOL (ETHANOL) < 0.003 % (0.000-0.010)
[2019-12-02 02:26] LABS: HCG, SERUM QUALITATIVE NEGATIVE (NEGATIVE)
[2019-12-02] MEDS ORDERED: CHARCOAL ACTIVATED LIQUID 25 GM/120 ML BTL PO ONE (02:30)
[2019-12-02 02:42] LABS: MAGNESIUM LEVEL 1.7 MG/DL (1.8-2.4)
[2019-12-02 02:46] LABS: AMPHETAMINES LEVEL URINE NEGATIVE (NEGATIVE); BARBITURATES URINE NEGATIVE (NEGATIVE); BENZODIAZEPINES URINE NEGATIVE (NEGATIVE); CANNABINOIDS URINE NEGATIVE (NEGATIVE); COCAINE METABOLITE URINE NEGATIVE (NEGATIVE); METHADONE URINE NEGATIVE (NEGATIVE); OPIATES URINE NEGATIVE (NEGATIVE); PHENCYCLIDINE URINE NEGATIVE (NEGATIVE)
--- NOTE | 2019-12-02 03:41 | HPEPDOC ---
[facility] Medical History & Physical Date of Admission December 02, 2019 Date of Service: December 02, [address] [facility] Attending Physician: NERY HEATH MD History and Physical TIME OF SERVICE: 3:45 AM CHIEF COMPLAINT: Overdose HISTORY OF PRESENT ILLNESS: This is a 24-year-old female who was brought to the ER because she overdosed on unknown amount of citalopram because "she is tender at the second and of the all father in the world is ending Tuesday midnight."On further questioning she admits that she overdosed because she is was "lying to kill herself so that she could "meet her father...and take over his place". She also said that this was not her body and after she she was going to come "back to life" with a new body. She currently denies wanting to any longer. Poison in control was consulted and they recommended admission for observation for 24-hours with telemetry; she has received charcoal and IVF. REVIEW OF SYSTEMS: 12 point review of systems negative except as listed in HPI PAST MEDICAL/ SURGICAL HISTORY: Type 1 diabetes with multiple episodes of DKA Asthma Bipolar disorder with depression Possible schizophrenia (per patient) Vitamin D Deficiency - has one son SOCIAL HISTORY: + vapes + drinks alcohol + THC FAMILY HISTORY: n/a ALLERGIES: Please see below. HOME MEDICATIONS: Please see below. PHYSICAL EXAMINATION: Vital Signs Date Time Temp Pulse Resp B/P (MAP) Pulse Ox O2 Delivery O2 Flow Rate FiO2 12/02/19 01:41 131/78 (95) 12/02/19 01:57 120 12/02/19 02:22 98.3 18 100 Room Air GEN: well-nourished / well developed/slightly anxious INTEGUMENT: not flushed/ not jaundice HEENT: NCAT / lips acyanotic /mucus membranes dry CVS: tachycardic/NMRG LUNGS: no coughing / lungs are clear to auscultation bilaterally on room air ABDOMEN: Contour (flat) / soft & not tender with palpation NEURO: CN 2-12 are grossly intact / speech is not dysarthric PSYCH: alert and oriented to person place and time/ able to understand and follow all commands LABORATORY DATA: 12/02/19 01:28 Immature Granulocyte % (Auto) 0.4, Neutrophils (%) (Auto) 72.9H, Lymphocytes (%) (Auto) 19.0L, Monocytes (%) (Auto) 7.4H, Eosinophils (%) (Auto) 0.2, Basophils (%) (Auto) 0.1, Neutrophils # (Auto) 8.0, Lymphocytes # (Auto) 2.1, Monocytes # (Auto) 0.8, Eosinophils # (Auto) 0.0, Basophils # (Auto) 0.0, Nucleated Red Blood Cells % (auto) 0.0, Anion Gap 16, Glomerular Filtration Rate > 60.0, Calcium Level 8.8, Magnesium Level 1.7L, Total Bilirubin 0.3, Direct Bilirubin < 0.1, Aspartate Amino Transf (AST/SGOT) 14, Alanine Aminotransferase (ALT/SGPT) 19, Alkaline Phosphatase 78, Total Creatine Kinase 32, Total Protein 7.0, Albumin 3.5, Albumin/Globulin Ratio 1.00, Thyroid Stimulating Hormone (TSH) 2.410, Human Chorionic Gonadotropin, Qual NEGATIVE, Salicylates Level 2.3L, Acetaminophen Level < 2.0L, Ethyl Alcohol Level < 0.003 Bedside Glucose (Misc Panel) 319H Urine Opiates Screen NEGATIVE, Urine Methadone Screen NEGATIVE, Urine Barbiturates Screen NEGATIVE, Urine Phencyclidine Screen NEGATIVE, Urine A mphetamines Screen NEGATIVE, Urine Benzodiazepines Screen NEGATIVE, Urine Cocaine Metabolite Screen NEGATIVE, Urine Cannabinoids Screen NEGATIVE Bedside Glucose (Misc Panel) 312H IMAGING: n/a MICROBIOLOGY: n/a ASSESSMENT: Ms. Levin is a 24-year-old female with a history of type 1 diabetes who is admitted for observation after overdosing on citalopram an attempt to commit suicide. PLAN: 1. Suicide attempt via citalopram overdose The rest of drug screen is unremarkable. The tachycardia may be due to the citalopram. Plan: Admit to PCU/telemetry, IVF /1:1 sitter / the daytime team can consult Psych liter on today. 2. Uncontrolled type 1 diabetes. Her A1c was 11.5% on November 20 She admits to not taking her insulin for a few days Plan: diabetic diet / f/u accuchecks / hypoglycemia protocol / sliding scale insulin / resume insulin once her meds have been reconciled 3. Hypomagnesemia Plan: Replete magnesium as needed 4. Nausea Plan: Zofran PO 5. Bipolar Disorder with Depression / Possible Schizophrenia ? She reports seeing a Psychiatrist in outpatient setting. Plan: Psych eval DVT PROPHYLAXIS: SCDs DISPOSITION: Likely transferred to [facility] after more than 2 midnight's stay Home Medications Scheduled Docusate Sodium (Dok) 100 Mg Capsule, 100 MG PO BID Ergocalciferol (Vitamin D2) (Vitamin D2) 50,000 Units Cap, 50,000 UNITS PO QWEEK Insulin Degludec (Tresiba) 100 Unit/1 Ml Vial, 1 DOSE SC BID Insulin Glargine,Hum.rec.anlog (Lantus Solostar) 100 Unit/1 Ml Insuln.pen, 1 DOSE SC DAILY Miscellaneous Medications Insulin Lispro (Humalog Kwikpen U-100) 100 Unit/1 Ml Insuln.pen, 1 DOSE SC [med rec comment] med rec done using external, unable to talk to patient Allergies Coded Allergies: No Known Allergies (Unverified , 10/01/19) A-FIB/CHADSVASC A-FIB History Current/History of A-Fib/PAF?: No Current PO Anticoag Therapy: No NERY HEATH MD December 02, 2019 03:41
[2019-12-02] MEDS ORDERED: MAGNESIUM OXIDE 400 MG TAB (MAG-OX) PO ONE (03:45)
[2019-12-02] MEDS ORDERED: GLUCOSE 4GM CHEW TABLET PO PRN (03:45)
[2019-12-02] MEDS ORDERED: MAALOX 30 ML SUSP *UDC PO PRN (03:45)
[2019-12-02] MEDS ORDERED: DEXTROSE 50% 50 ML SYRINGE IV PRN (03:45)
[2019-12-02] MEDS ORDERED: MOM 30ML SUSPENSION UDC PO PRN (03:45)
[2019-12-02] MEDS ORDERED: ACETAMINOPHEN TAB 650MG DOSE (2X325MG) PO PRN (03:45)
[2019-12-02] MEDS ORDERED: GLUCAGON INJ 1MG VIAL SC PRN (03:45)
[2019-12-02] MEDS ORDERED: VITA50005 PO (03:48)
[2019-12-02] MEDS ORDERED: DOK1CAP7 PO (03:48)
[2019-12-02] MEDS ORDERED: med rec comment (03:52)
[2019-12-02] MEDS ORDERED: LANTINJ4 SC (03:52)
[2019-12-02] MEDS ORDERED: HUMA100I5 SC (03:52)
[2019-12-02 04:40] VITALS: BP 139/84
--- NOTE | 2019-12-02 06:33 | ECGEPIP ---
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
[2019-12-02] MEDS: ONDANSETRON 4 MG TAB PO PRN ×2 (07:36→18:14)
[2019-12-02 08:00] VITALS: BP 144/73
[2019-12-02] MEDS ORDERED: PROMETHAZINE INJ 25 MG/ML VIAL (J2550) IV ONE (08:00)
[2019-12-02] MEDS ORDERED: NS 2,000 ML IV ONE (08:00)
[2019-12-02] MEDS ORDERED: HumaLOG INSULIN (NovoLOG) PER UNIT SC STA (08:21)
[2019-12-02] MEDS: KETOROLAC 30 MG/ML 1ML VIAL IV SCH ×3 (08:29→20:38)
[2019-12-02] MEDS: LEVEMIR (INSULIN DETEMIR) 1 UNITS/0.01ML SC SCH (08:29)
[2019-12-02] MEDS: HumaLOG INSULIN (NovoLOG) PER UNIT SC SCH ×9 (08:30→22:30)
[2019-12-02] MEDS ORDERED: LEVEMIR (INSULIN DETEMIR) 1 UNITS/0.01ML SC SCH ×2 (09:00→21:00)
[2019-12-02] MEDS ORDERED: NS 1,000 ML IV SCH ×2 (09:00→11:15)
[2019-12-02] MEDS: METOCLOPRAMIDE INJ 10MG/2ML VIAL (J2765 PER 1) IV SCH ×4 (09:07→21:37)
[2019-12-02 09:15] LABS: BLOOD UREA NITROGEN 8 MG/DL (7-18); C REACTIVE PROTEIN QUANTITATIV < 0.30 MG/DL (0.00-0.30); CALCIUM LEVEL 8.6 MG/DL (8.5-10.1); CARBON DIOXIDE LEVEL 9 MEQ/L (21-32); CHLORIDE LEVEL 109 MEQ/L (98-107); CREATININE FOR GFR 1.01 MG/DL (0.55-1.30); GLOMERULAR FILTRATION RATE > 60.0 (>60); GLUCOSE, FASTING 484 MG/DL (70-100); MAGNESIUM LEVEL 1.8 MG/DL (1.8-2.4); POTASSIUM SERUM 4.4 MEQ/L (3.5-5.1); SODIUM LEVEL 138 MEQ/L (136-145); THYROID STIMULATING HORMONE 0.765 uIU/ML (0.358-3.740)
[2019-12-02] MEDS ORDERED: HumaLOG INSULIN (NovoLOG) PER UNIT SC ONE ×3 (10:30→19:00)
[2019-12-02] MEDS: D5W/0.45% SODIUM CHLORIDE 1,000 ML IV SCH ×3 (11:40→20:38)
[2019-12-02 11:45] LABS: ABG BASE EXCESS -13.8 (-2.0-2.0); ABG HCO3 11.3 MEQ/L (22.0-26.0); ABG O2 SATURATION 98.1 % (95.0-99.0); ABG PARTIAL PRESSURE CO2 24.8 mmHg (35.0-45.0); ABG PARTIAL PRESSURE O2 130.7 mmHg (75.0-100.0); ABG STANDARD HCO3 13.8 MEQ/L (22.0-26.0); ABG pH (ARTERIAL) 7.276 UNITS (7.350-7.450)
[2019-12-02 12:00] VITALS: BP 126/66
[2019-12-02 12:24] LABS: BLOOD UREA NITROGEN 6 MG/DL (7-18); CARBON DIOXIDE LEVEL 15 MEQ/L (21-32); CHLORIDE LEVEL 117 MEQ/L (98-107); CREATININE FOR GFR 0.73 MG/DL (0.55-1.30); GLOMERULAR FILTRATION RATE > 60.0 (>60); GLUCOSE, FASTING 146 MG/DL (70-100); POTASSIUM SERUM 3.5 MEQ/L (3.5-5.1); SODIUM LEVEL 144 MEQ/L (136-145)
[2019-12-02] MEDS: PROMETHAZINE INJ 25 MG/ML VIAL (J2550) IV SCH ×2 (13:48→20:38)
[2019-12-02] MEDS ORDERED: POTASSIUM CHLORIDE 10 MEQ SR TABLET PO ONE ×2 (14:00→17:00)
[2019-12-02 15:52] LABS: IONIZED CALCIUM 4.8 MG/DL (4.5-5.3)
[2019-12-02 16:00] VITALS: BP 117/58
[2019-12-02 16:20] LABS: BLOOD UREA NITROGEN 5 MG/DL (7-18); CALCIUM LEVEL 7.9 MG/DL (8.5-10.1); CARBON DIOXIDE LEVEL 17 MEQ/L (21-32); CHLORIDE LEVEL 113 MEQ/L (98-107); CREATININE FOR GFR 0.65 MG/DL (0.55-1.30); GLOMERULAR FILTRATION RATE > 60.0 (>60); GLUCOSE, FASTING 151 MG/DL (70-100); MAGNESIUM LEVEL 1.6 MG/DL (1.8-2.4); POTASSIUM SERUM 3.8 MEQ/L (3.5-5.1); SODIUM LEVEL 139 MEQ/L (136-145)
[2019-12-02] MEDS ORDERED: D5W/0.45% SODIUM CHLORIDE 1,000 ML IV ONE (17:00)
[2019-12-02] MEDS ORDERED: MAG SULF 1GM/100ML (MAG RUN) 1 GM in IV 1 EA IV ONE (17:00)
[2019-12-02] MEDS ORDERED: LEVALBUTEROL 1.25 MG/0.5 ML CONCENTRATE NEB NEB ONE (18:00)
[2019-12-02] MEDS ORDERED: LEVALBUTEROL 1.25 MG/0.5 ML CONCENTRATE NEB INH PRN (18:00)
[2019-12-02] MEDS: LEVALBUTEROL 1.25 MG/0.5 ML CONCENTRATE NEB INH SCH (19:53)
[2019-12-02 20:00] VITALS: BP 121/64
[2019-12-02 20:31] LABS: BLOOD UREA NITROGEN 3 MG/DL (7-18); CALCIUM LEVEL 8.3 MG/DL (8.5-10.1); CARBON DIOXIDE LEVEL 17 MEQ/L (21-32); CHLORIDE LEVEL 115 MEQ/L (98-107); GLOMERULAR FILTRATION RATE > 60.0 (>60); GLUCOSE, FASTING 197 MG/DL (70-100); MAGNESIUM LEVEL 1.9 MG/DL (1.8-2.4); POTASSIUM SERUM 3.5 MEQ/L (3.5-5.1); SODIUM LEVEL 139 MEQ/L (136-145)
[2019-12-02] MEDS ORDERED: HumaLOG INSULIN (NovoLOG) PER UNIT SC SCH (21:00)
[2019-12-02 21:06] LABS: VENOUS BASE EXCESS -8.8 (-2.0-2.0); VENOUS HCO3 15.4 MEQ/L (23.0-27.0); VENOUS O2 SATURATION 99.1 % (60.0-80.0); VENOUS PARTIAL PRESSURE CO2 28.5 mmHg (38.0-50.0); VENOUS PH 7.351 UNITS (7.330-7.430); VENOUS STANDARD HCO3 17.5 MEQ/L; VENOUS TOTAL CO2 16.3 MEQ/L (24.0-28.0)
[2019-12-03] VITALS: BP 137/67
[2019-12-03] MEDS: HumaLOG INSULIN (NovoLOG) PER UNIT SC SCH ×7 (00:30→15:21)
[2019-12-03] MEDS: D5W/0.45% SODIUM CHLORIDE 1,000 ML IV SCH ×5 (00:37→20:36)
[2019-12-03] MEDS: PROMETHAZINE INJ 25 MG/ML VIAL (J2550) IV SCH (02:00)
[2019-12-03] MEDS: KETOROLAC 30 MG/ML 1ML VIAL IV SCH ×4 (03:14→20:35)
[2019-12-03] MEDS: METOCLOPRAMIDE INJ 10MG/2ML VIAL (J2765 PER 1) IV SCH (03:14)
[2019-12-03 03:55] LABS: HEMATOCRIT 31.7 % (36.0-47.0); HEMOGLOBIN 10.8 g/dl (12.0-15.5); MEAN CORPUSCULAR HEMOGLOBIN 31.4 pg (27.0-33.0); MEAN CORPUSCULAR HGB CONC 34.1 g/dl (32.0-36.5); MEAN CORPUSCULAR VOLUME 92.2 fl (80.0-96.0); PLATELET COUNT, AUTOMATED 302 10^3/uL (150-450); RED BLOOD COUNT 3.44 10^6/uL (4.00-5.40); WHITE BLOOD COUNT 11.3 10^3/uL (4.0-10.0)
[2019-12-03 04:00] VITALS: BP 133/75
--- NOTE | 2019-12-03 04:01 | REP ---
Clinical: Shortness of breath . Comparison: None . Findings: The mediastinum and cardiac silhouette are stable and within normal limits for portable technique. The lung alejo are clear without acute consolidation, effusion, or pneumothorax. Skeletal structures are intact. Impression: No acute cardiopulmonary process appreciated. Electronically Signed by Jeison Posada MD 12/03/2019 03:53 A
[2019-12-03 04:13] LABS: BLOOD UREA NITROGEN 2 MG/DL (7-18); CREATININE FOR GFR 0.57 MG/DL (0.55-1.30); GLUCOSE, FASTING 142 MG/DL (70-100)
[2019-12-03 04:14] LABS: CALCIUM LEVEL 7.7 MG/DL (8.5-10.1); CARBON DIOXIDE LEVEL 18 MEQ/L (21-32); CHLORIDE LEVEL 117 MEQ/L (98-107); GLOMERULAR FILTRATION RATE > 60.0 (>60); POTASSIUM SERUM 3.5 MEQ/L (3.5-5.1); SODIUM LEVEL 144 MEQ/L (136-145)
[2019-12-03] MEDS: LEVALBUTEROL 1.25 MG/0.5 ML CONCENTRATE NEB INH SCH ×4 (07:30→20:02)
[2019-12-03] MEDS ORDERED: METOCLOPRAMIDE INJ 10MG/2ML VIAL (J2765 PER 1) IV ONE (07:45)
[2019-12-03] MEDS ORDERED: PANTOPRAZOLE 40MG VIAL (C9113 PER 1) IV ONE (07:45)
[2019-12-03 08:00] VITALS: BP 122/80
[2019-12-03] MEDS ORDERED: ACETAMINOPHEN *IV* 650 MG in IV 1 EA IV ONE (08:00)
[2019-12-03] MEDS ORDERED: GI COCKTAIL 50ML BTL(HYOSCYAMINE/MAALOX/LIDOCAINE VISCOUS)(1:3:1) PO ONE (08:00)
[2019-12-03 08:41] LABS: BLOOD UREA NITROGEN 2 MG/DL (7-18); CALCIUM LEVEL 8.6 MG/DL (8.5-10.1); CARBON DIOXIDE LEVEL 16 MEQ/L (21-32); CHLORIDE LEVEL 115 MEQ/L (98-107); CREATININE FOR GFR 0.79 MG/DL (0.55-1.30); GLOMERULAR FILTRATION RATE > 60.0 (>60); GLUCOSE, FASTING 172 MG/DL (70-100); POTASSIUM SERUM 3.4 MEQ/L (3.5-5.1); SODIUM LEVEL 143 MEQ/L (136-145)
[2019-12-03] MEDS: LEVEMIR (INSULIN DETEMIR) 1 UNITS/0.01ML SC SCH (10:09)
[2019-12-03] MEDS ORDERED: PROMETHAZINE INJ 25 MG/ML VIAL (J2550) IV PRN (10:45)
[2019-12-03] MEDS ORDERED: METOCLOPRAMIDE INJ 10MG/2ML VIAL (J2765 PER 1) IV PRN (10:45)
[2019-12-03] MEDS ORDERED: POTASSIUM CHLORIDE 10 MEQ SR TABLET PO ONE (10:45)
[2019-12-03 12:00] VITALS: BP 114/73
[2019-12-03 12:36] LABS: BLOOD UREA NITROGEN 2 MG/DL (7-18); CALCIUM LEVEL 8.9 MG/DL (8.5-10.1); CARBON DIOXIDE LEVEL 17 MEQ/L (21-32); CHLORIDE LEVEL 116 MEQ/L (98-107); CREATININE FOR GFR 0.87 MG/DL (0.55-1.30); GLOMERULAR FILTRATION RATE > 60.0 (>60); GLUCOSE, FASTING 129 MG/DL (70-100); POTASSIUM SERUM 3.5 MEQ/L (3.5-5.1); SODIUM LEVEL 142 MEQ/L (136-145)
--- NOTE | 2019-12-03 12:46 | IPN ---
DATE OF SERVICE: 12/02/2019 Patient was afebrile overnight. Remains tachycardic. Complains of intractable nausea, vomiting, diffuse abdominal pain. Patient was found to be in diabetic ketoacidosis with a high anion gap, severe metabolic acidosis, bicarbonate of 19 and glucose of 484. Patient has been given lispro insulin every 2 hours with improvement in glucose and bicarbonate, and anion gap has not closed. She is continued on IV fluids D5-1/2 normal until the anion gap has closed. She has no chest pain. No shortness of breath. Denies any diarrhea, dysuria, urgency or frequency. No cough. No fever or chills. Vitals: Temperature 97.9, pulse 118, respiratory rate 16, blood pressure 139/84, 96% on room air. Generally, patient is awake, alert, oriented to person, place and time, answering questions appropriately. Moist mucous membranes. No jugular venous distention (JVD) or thyromegaly. Lungs are clear to auscultation. No wheezing, rales or rhonchi. Abdomen is soft, tender diffusely. No rebound or guarding. Positive bowel sounds times four quadrants. No hepatosplenomegaly. Extremities: No cyanosis, clubbing or pitting edema. LABORATORY DATA: White count 10.9, hemoglobin 12, hematocrit 37, platelet count 327. Sodium 138, potassium 4.4, chloride 109, bicarbonate 20, BUN 8, creatinine 1.01, glucose of 484, ionized calcium of 4.9, magnesium of 1.8, TSH of 0.65. Procalcitonin is pending. Repeat metabolic panel is pending. Two sets of blood cultures are pending. Urinalysis (UA) is pending. Chest x-ray could not be performed as the patient is vomiting. ASSESSMENT AND PLAN: This is a 24-year-old female brought into the emergency room due to intentional drug overdose with citalopram. Patient is having delusional thoughts about meeting her father by "committing suicide and taking over his place" with psychotic features when she says "this is not her body and after she is going come back to life with a new body." Patient did receive charcoal and IV fluids, was kept on telemetry overnight, was found to have diabetic ketoacidosis. CURRENT ISSUES: 1. Diabetic ketoacidosis. Currently on IV fluids. Since the glucose has been less than 250, she has been kept on D5-1/2 normal saline with lispro insulin every 2 hours until the anion gap has closed. She is kept nothing by mouth until acidosis has resolved and anion gap has closed. She is kept with basic metabolic panel (BMP) every 4 hours with magnesium checks. Patient's arterial blood gas (ABG) is not showing significant acidosis with pH of 7.2, therefore, bicarbonate is not needed. 2. Suicide attempt with citalopram. Patient is kept with a sitter. Psychiatric admission into the inpatient mental health unit once the diabetic ketoacidosis (DKA) has resolved. 3. Citalopram overdose. Patient is being monitored on the medical floor. Electrocardiogram (EKG) on admission sinus tachycardia with nonspecific ST-T wave changes. Monitoring patient's electrolytes. Ionized calcium, magnesium, and potassium are within normal limits at this time. 4. Questionable schizophrenia. Defer to psychiatrist for formal diagnosis and management once medically stable. 5. History of vitamin D deficiency. Since the patient is nothing by mouth, will defer supplementation until she resumes an oral diet. 6. Deep venous thrombosis (DVT) prophylaxis with compression stockings. MTDD
[2019-12-03 16:00] VITALS: BP 140/91
[2019-12-03 16:48] LABS: BLOOD UREA NITROGEN 1 MG/DL (7-18); CARBON DIOXIDE LEVEL 15 MEQ/L (21-32); CHLORIDE LEVEL 118 MEQ/L (98-107); CREATININE FOR GFR 0.81 MG/DL (0.55-1.30); GLOMERULAR FILTRATION RATE > 60.0 (>60); GLUCOSE, FASTING 118 MG/DL (70-100); POTASSIUM SERUM 2.7 MEQ/L (3.5-5.1); SODIUM LEVEL 145 MEQ/L (136-145)
[2019-12-03] MEDS ORDERED: INSULIN HUMAN REGULAR 100 UNITS in NS 99 ML IV SCH ×2 (18:00→19:00)
[2019-12-03] MEDS ORDERED: HumuLIN R (REGULAR) INSULIN (NovoLIN R) **100U/ML** PER UNIT IV SCH (18:00)
[2019-12-03] MEDS ORDERED: INSULIN IV RATE CHANGE DOCUMENTATION ML/HR XX SCH ×2 (18:00)
[2019-12-03 18:58] LABS: HEMOGLOBIN A1c 11.1 %
[2019-12-03 20:00] VITALS: BP 122/79
[2019-12-03 20:25] LABS: BLOOD UREA NITROGEN 1 MG/DL (7-18); CALCIUM LEVEL 8.4 MG/DL (8.5-10.1); CARBON DIOXIDE LEVEL 18 MEQ/L (21-32); CHLORIDE LEVEL 116 MEQ/L (98-107); CREATININE FOR GFR 0.68 MG/DL (0.55-1.30); GLOMERULAR FILTRATION RATE > 60.0 (>60); GLUCOSE, FASTING 86 MG/DL (70-100); MAGNESIUM LEVEL 1.8 MG/DL (1.8-2.4); PHOSPHORUS LEVEL 2.4 MG/DL (2.5-4.9); SODIUM LEVEL 144 MEQ/L (136-145)
[2019-12-03] MEDS: POTASSIUM CHLORIDE 10 MEQ SR TABLET PO SCH ×2 (20:35→21:51)
--- NOTE | 2019-12-03 23:44 | ECGEPIP ---
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
[2019-12-04] VITALS: BP 121/90
[2019-12-04] MEDS: D5W/0.45% SODIUM CHLORIDE 1,000 ML IV SCH ×3 (00:19→05:36)
[2019-12-04 00:48] LABS: BLOOD UREA NITROGEN 1 MG/DL (7-18); CALCIUM LEVEL 8.1 MG/DL (8.5-10.1); CARBON DIOXIDE LEVEL 18 MEQ/L (21-32); CHLORIDE LEVEL 119 MEQ/L (98-107); CREATININE FOR GFR 0.48 MG/DL (0.55-1.30); GLOMERULAR FILTRATION RATE > 60.0 (>60); GLUCOSE, FASTING 104 MG/DL (70-100); MAGNESIUM LEVEL 1.4 MG/DL (1.8-2.4); PHOSPHORUS LEVEL 2.6 MG/DL (2.5-4.9); POTASSIUM SERUM 3.4 MEQ/L (3.5-5.1); SODIUM LEVEL 145 MEQ/L (136-145)
[2019-12-04] MEDS: KETOROLAC 30 MG/ML 1ML VIAL IV SCH (01:56)
[2019-12-04 04:21] LABS: EOS % 0.4 % (0.0-3.0); HEMATOCRIT 33.6 % (36.0-47.0); HEMOGLOBIN 11.3 g/dl (12.0-15.5); LYMPH # 3.6 10^3/uL (1.5-5.0); LYMPH % 50.1 % (24.0-44.0); MEAN CORPUSCULAR HEMOGLOBIN 31.8 pg (27.0-33.0); MEAN CORPUSCULAR HGB CONC 33.6 g/dl (32.0-36.5); MEAN CORPUSCULAR VOLUME 94.6 fl (80.0-96.0); MONO # 0.5 10^3/uL (0.0-0.8); MONO % 7.4 % (0.0-5.0); PLATELET COUNT, AUTOMATED 288 10^3/uL (150-450); RED BLOOD COUNT 3.55 10^6/uL (4.00-5.40); WHITE BLOOD COUNT 7.2 10^3/uL (4.0-10.0)
[2019-12-04 04:30] VITALS: BP 125/85
[2019-12-04 04:51] LABS: ACETONE/KETONE 0.51 MG/DL (<2.81); BLOOD UREA NITROGEN < 1 MG/DL (7-18); CALCIUM LEVEL 8.2 MG/DL (8.5-10.1); CARBON DIOXIDE LEVEL 19 MEQ/L (21-32); CHLORIDE LEVEL 119 MEQ/L (98-107); CREATININE FOR GFR 0.53 MG/DL (0.55-1.30); GLOMERULAR FILTRATION RATE > 60.0 (>60); GLUCOSE, FASTING 56 MG/DL (70-100); MAGNESIUM LEVEL 1.4 MG/DL (1.8-2.4); PHOSPHORUS LEVEL 2.6 MG/DL (2.5-4.9); POTASSIUM SERUM 4.1 MEQ/L (3.5-5.1); SODIUM LEVEL 143 MEQ/L (136-145)
[2019-12-04] MEDS ORDERED: MAGNESIUM GLUCONATE 500 MG TAB PO ONE (05:15)
[2019-12-04] MEDS ORDERED: MAG SULF 1GM/100ML (MAG RUN) 1 GM in IV 1 EA IV ONE (07:15)
[2019-12-04] MEDS: LEVALBUTEROL 1.25 MG/0.5 ML CONCENTRATE NEB INH SCH (07:19)
[2019-12-04] MEDS ORDERED: LEVEMIR (INSULIN DETEMIR) 1 UNITS/0.01ML SC SCH (07:48)
[2019-12-04 08:00] VITALS: BP 136/90
--- NOTE | 2019-12-04 10:12 | IPNPDOC ---
Text Note Date of Service The patient was seen on 12/04/19. NOTE Subjective: Patient is a 24-year-old female with a PMHx IDDM1, Asthma, Bipolar / Depression / Schizophrenia who presented to the ER after she had overdosed with citalopram. Patient was reported to taking at least 10 pills. Poison control was contacted who recommended observation for 24 hours telemetry. In the emergency room, patient received charcoal and IV fluid hydration. Patient was ultimately placed in the ICU for suspected DKA. Patient was seen and examined at the bedside. This morning, patient has been taken off insulin drip and has been transitioned to subcutaneous insulin. Patient's diet has been advanced. Currently patient denies any chest pain, shortness of breath, palpitation. She denies any urinary discomfort. Denies any abdominal pain but does report mild nausea. Denies any diarrhea or constipation. I discussed with the patient that she will likely require psychiatric consultation and further stay at inpatient mental health. Objective: Vitals (See below) General: Lying in bed, appears comfortable, AAOx3 HEENT: NC, AT CVS: +S1S2 Lungs: Fair air entry b/l, -w/r/r Abdomen: Soft, ND, NT Extremities: - Edema, - Calf tenderness Assessment and plan: s/p DKA - likely 2/2 non-compliance with medications - Patient had reported that she had stopped taking her medications, so she could seek the help that she needed - Patient initially presented with a suppressed carbon dioxide, elevated beta hydroxybutyrate - She was started on insulin drip and aggressive IV fluid hydration - Lab work has shown improvement of carbon dioxide levels - Discontinued insulin drip - Patient has been transitioned to subcutaneous insulin and has been started on consistent carbohydrate diet - Will adjust subcutaneous insulin as needed Suicidal attempt with overdose of citalopram - Presented with contacted would recommend a charcoal and IV fluid hydration - Continue w/ telemetry monitoring - Bedside sitter and suicide precautions are in place - Patient will be medically cleared within the next 12-24 hours - Psychiatry has been consulted Citalopram overdose - Hypokalemia and hypomagnesemia - Electrolytes have been supplemented Asthma - No evidence of exacerbation at this time - Continue with inhaled therapy as ordered Bipolar / Depression / Schizophrenia - Psychiatry has been consulted Vitamin D deficiency - Will resume supplementation as an outpatient DVT prophylaxis - c/w TEDs/Sequentials Disposition: - At the medical clearance within the next 12-24 hours - Patient will likely require stay at inpatient mental health unit VS,Nik, I+O VS, Nik, I+O Laboratory Tests 12/03/19 12:03 12/03/19 16:10 12/03/19 19:55 12/04/19 00:08 12/04/19 04:05 Vital Signs Date Time Temp Pulse Resp B/P (MAP) Pulse Ox O2 Delivery O2 Flow Rate FiO2 12/04/19 08:00 98.2 106 18 136/90 (105) 100 Room Air I&O- Last 24 Hours up to 6 AM 12/04/19 06:00 Intake Total 4418 ml Output Total 1700 ml Balance 2718 ml EUSEBIA WEATHERS MD December 04, 2019 10:12
[2019-12-04] MEDS: HumaLOG INSULIN (NovoLOG) PER UNIT SC SCH ×2 (11:50→17:06)
[2019-12-04 12:00] VITALS: BP 126/82
[2019-12-04 12:56] LABS: BLOOD UREA NITROGEN < 1 MG/DL (7-18); CALCIUM LEVEL 8.6 MG/DL (8.5-10.1); CARBON DIOXIDE LEVEL 15 MEQ/L (21-32); CHLORIDE LEVEL 114 MEQ/L (98-107); CREATININE FOR GFR 0.78 MG/DL (0.55-1.30); GLOMERULAR FILTRATION RATE > 60.0 (>60); GLUCOSE, FASTING 273 MG/DL (70-100); MAGNESIUM LEVEL 2.2 MG/DL (1.8-2.4); PHOSPHORUS LEVEL 2.3 MG/DL (2.5-4.9); POTASSIUM SERUM 5.4 MEQ/L (3.5-5.1); SODIUM LEVEL 138 MEQ/L (136-145)
[2019-12-04 14:12] LABS: ACETONE/KETONE 1.33 MG/DL (<2.81)
[2019-12-04 17:24] LABS: BLOOD UREA NITROGEN < 1 MG/DL (7-18); CALCIUM LEVEL 9.1 MG/DL (8.5-10.1); CARBON DIOXIDE LEVEL 20 MEQ/L (21-32); CHLORIDE LEVEL 116 MEQ/L (98-107); CREATININE FOR GFR 0.72 MG/DL (0.55-1.30); GLOMERULAR FILTRATION RATE > 60.0 (>60); GLUCOSE, FASTING 85 MG/DL (70-100); PHOSPHORUS LEVEL 2.4 MG/DL (2.5-4.9); POTASSIUM SERUM 3.6 MEQ/L (3.5-5.1); SODIUM LEVEL 144 MEQ/L (136-145)
[2019-12-04 20:00] VITALS: BP 114/75
[2019-12-04 20:39] LABS: BLOOD UREA NITROGEN < 1 MG/DL (7-18); CALCIUM LEVEL 9.3 MG/DL (8.5-10.1); CARBON DIOXIDE LEVEL 21 MEQ/L (21-32); CHLORIDE LEVEL 114 MEQ/L (98-107); CREATININE FOR GFR 0.66 MG/DL (0.55-1.30); GLOMERULAR FILTRATION RATE > 60.0 (>60); GLUCOSE, FASTING 80 MG/DL (70-100); MAGNESIUM LEVEL 1.9 MG/DL (1.8-2.4); POTASSIUM SERUM 3.7 MEQ/L (3.5-5.1); SODIUM LEVEL 142 MEQ/L (136-145)
--- NOTE | 2019-12-04 20:57 | IPN ---
DATE: 12/03/2019 This morning, patient still complains of slight nausea, given intravenous (IV) Phenergan. She continues to nothing by mouth due to diabetic ketoacidosis (DKA) with complaints of abdominal pain. Complained of chest pain this morning. Given gastrointestinal (GI) cocktail with some improvement. No shortness of breath. Temperature 98.7, pulse 105, respiratory rate 18, blood pressure 114/73, 99% on room air. GENERAL: Awake, alert, oriented to person, place, and time. Answering questions appropriately. No jugular venous distention (JVD). No thyromegaly. No cervical lymphadenopathy. Moist mucous membranes. LUNGS: Clear to auscultation. No wheezes, rales, or rhonchi. HEART: S1, S2, sinus rhythm. Sinus tachycardia. ABDOMEN: Soft, slightly tender in the epigastric region. No rebound or guarding. Positive bowel sounds times four quadrants. EXTREMITIES: No cyanosis, clubbing, or pitting edema. White count 11.3, hemoglobin 10, hematocrit 31, platelet count 302. Sodium 142, potassium 3.5, chloride 116, bicarbonate 17, BUN 2, creatinine 0.87, glucose 129. Beta-hydroxybutyrate greater than 46. Two sets of blood cultures are pending. Chest x-ray 12/02/2019: No acute cardiopulmonary process. ASSESSMENT AND PLAN: This is a 24-year-old female who had an intentional citalopram overdose as a suicide attempting trying to join her father and be reborn in another body. According to records, patient was found to have intractable nausea, vomiting, abdominal pain, and was found to have diabetic ketoacidosis with high anion gap, and with IV fluids and insulin patient had improvement in the high anion gap of 20 down to 9 but still with slight metabolic acidosis. We have lost IV access, and a peripherally inserted central catheter (PICC) line has been ordered this morning. IMPRESSION: 1. Diabetic ketoacidosis. Patient has lost IV access. Could not be administered her IV fluids and insulin. Therefore, PICC line is ordered to be placed emergently for further treatment. Continue with insulin and D5 until patient's bicarbonate is over 20. She has normal anion gap currently and has been started on clears, to be advanced to consistent-carbohydrate diet as tolerated. 2. Citalopram overdose. Repeat EKG to monitor patient's QT prolongation. 3. Suicide attempt. Currently with a sitter. Will need psychiatric admission after medically stable. 4. Metabolic acidosis related to diabetic ketoacidosis (DKA). Continue with insulin and D5 half-normal until patient's bicarbonate is greater than 20. Anion gap is currently closed. DISPOSITION: One to two days on the medical floor for stabilization and psychiatric evaluation. [facility]
[2019-12-04] MEDS ORDERED: HumaLOG INSULIN (NovoLOG) PER UNIT SC SCH (21:00)
[2019-12-05] VITALS: BP 110/71
[2019-12-05 00:33] LABS: BLOOD UREA NITROGEN < 1 MG/DL (7-18); CARBON DIOXIDE LEVEL 23 MEQ/L (21-32); CHLORIDE LEVEL 110 MEQ/L (98-107); CREATININE FOR GFR 0.68 MG/DL (0.55-1.30); GLOMERULAR FILTRATION RATE > 60.0 (>60); GLUCOSE, FASTING 87 MG/DL (70-100); MAGNESIUM LEVEL 1.9 MG/DL (1.8-2.4); PHOSPHORUS LEVEL 3.3 MG/DL (2.5-4.9); POTASSIUM SERUM 3.7 MEQ/L (3.5-5.1); SODIUM LEVEL 144 MEQ/L (136-145)
[2019-12-05 04:00] VITALS: BP 119/67
[2019-12-05 04:44] LABS: BASO % 0.2 % (0.0-1.0); EOS # 0.1 10^3/uL (0.0-0.5); EOS % 1.3 % (0.0-3.0); HEMATOCRIT 34.9 % (36.0-47.0); HEMOGLOBIN 11.8 g/dl (12.0-15.5); LYMPH # 2.2 10^3/uL (1.5-5.0); LYMPH % 38.6 % (24.0-44.0); MEAN CORPUSCULAR HEMOGLOBIN 31.6 pg (27.0-33.0); MEAN CORPUSCULAR HGB CONC 33.8 g/dl (32.0-36.5); MEAN CORPUSCULAR VOLUME 93.6 fl (80.0-96.0); MONO # 0.4 10^3/uL (0.0-0.8); MONO % 7.3 % (0.0-5.0); NEUTROPHILS # 2.9 10^3/uL (1.5-8.5); NEUTROPHILS % 52.4 % (36.0-66.0); PLATELET COUNT, AUTOMATED 258 10^3/uL (150-450); RED BLOOD COUNT 3.73 10^6/uL (4.00-5.40); WHITE BLOOD COUNT 5.6 10^3/uL (4.0-10.0)
[2019-12-05 05:07] LABS: BLOOD UREA NITROGEN 2 MG/DL (7-18); CALCIUM LEVEL 8.5 MG/DL (8.5-10.1); CARBON DIOXIDE LEVEL 22 MEQ/L (21-32); CHLORIDE LEVEL 110 MEQ/L (98-107); CREATININE FOR GFR 0.68 MG/DL (0.55-1.30); GLOMERULAR FILTRATION RATE > 60.0 (>60); GLUCOSE, FASTING 119 MG/DL (70-100); MAGNESIUM LEVEL 1.6 MG/DL (1.8-2.4); PHOSPHORUS LEVEL 3.7 MG/DL (2.5-4.9); POTASSIUM SERUM 3.9 MEQ/L (3.5-5.1); SODIUM LEVEL 144 MEQ/L (136-145)
[2019-12-05] MEDS ORDERED: MAG SULF 1GM/100ML (MAG RUN) 1 GM in IV 1 EA IV ONE (07:00)
[2019-12-05] MEDS ORDERED: LANTINJ4 SC (07:17)
[2019-12-05 07:20] VITALS: BP 117/74
[2019-12-05] MEDS: HumaLOG INSULIN (NovoLOG) PER UNIT SC SCH ×2 (07:31→11:24)
--- NOTE | 2019-12-05 08:47 | DS.PDOC ---
Discharge Summary General Date of Admission December 02, 2019 at 03:35 Date of Discharge 12/05/2019 Discharge Summary PROCEDURES PERFORMED DURING STAY: [None]. ADMITTING DIAGNOSES / DISCHARGE DIAGNOSES: s/p DKA with Hypoglycemia - likely 2/2 non-compliance with medications Suicidal attempt with overdose of citalopram Citalopram overdose Asthma Bipolar / Depression / Schizophrenia Vitamin D deficiency DVT prophylaxis COMPLICATIONS/CHIEF COMPLAINT: Suicide Attempt with Drug Overdose HISTORY OF PRESENT ILLNESS: Patient is a 24-year-old female with a PMHx IDDM1, Asthma, Bipolar / Depression / Schizophrenia who presented to the ER after she had overdosed with citalopram. Patient was reported to taking at least 10 pills. Poison control was contacted who recommended observation for 24 hours telemetry. In the emergency room, patient received charcoal and IV fluid hydration. Patient was ultimately placed in the ICU for suspected DKA. Patient was seen and examined at the bedside. This morning, patient has been taken off insulin drip and has been transitioned to subcutaneous insulin. Patient's diet has been advanced. Currently patient denies any chest pain, shortness of breath, palpitation. She denies any urinary discomfort. Denies any abdominal pain but does report mild nausea. Denies any diarrhea or constipation. HOSPITAL COURSE: s/p DKA with Hypoglycemia - likely 2/2 non-compliance with medications - Patient had reported that she had stopped taking her medications, so she could seek the help that she needed - Lab work has shown resolution of suppressed CO2, improved beta hydroxybutyrate - s/p insulin drip and IV fluid hydration - c/w consistent carbohydrate diet - c/w Adjusted dose of long acting insulin and c/w ISS Suicidal attempt with overdose of citalopram - Presented with contacted would recommend a charcoal and IV fluid hydration - Will DC telemetry monitoring - Bedside sitter and suicide precautions are in place - Psychiatry has been consulted; will be transitioned to [facility] today Citalopram overdose - s/p Hypokalemia - Hypomagnesemia - Electrolytes have been supplemented again this morning Asthma - No evidence of exacerbation at this time - Continue with inhaled therapy as ordered Bipolar / Depression / Schizophrenia - Psychiatry has been consulted Vitamin D deficiency - Will resume supplementation as an outpatient DVT prophylaxis - c/w TEDs/Sequentials DISCHARGE MEDICATIONS: Please see below. ALLERGIES: Please see below. PHYSICAL EXAMINATION ON DISCHARGE: Vitals (See below) General: Lying in bed, resting comfortable in bed, AAOx3 HEENT: NC, AT CVS: +S1S2 Lungs: Fair air entry b/l, no wheezing / rhonchi / rales Abdomen: Soft, Non-distended, non-tender Extremities: - Edema, - Calf tenderness LABORATORY DATA: Please see below. ACTIVITY: [As tolerated]. DIET: Consistent carbohydrate DISCHARGE PLAN: Follow up with Psychiatry at [facility] upon transfer Outpatient follow up with PCP / Endocrinology upon discharge Remain compliant with treatment plan and medications Return to the ER if you experience any problems DISPOSITION: [facility] DISCHARGE CONDITION: [Stable]. TIME SPENT ON DISCHARGE: 35 minutes. Vital Signs/I&Os Vital Signs Date Time Temp Pulse Resp B/P (MAP) Pulse Ox O2 Delivery O2 Flow Rate FiO2 12/05/19 07:20 98.4 101 18 117/74 (88) 100 Room Air I&O- Last 24 Hours up to 6 AM 12/05/19 06:00 Intake Total 2140 ml Output Total 4075 ml Balance -1935 ml Laboratory Data Labs 24H Laboratory Tests 2 12/04/19 09:27: Bedside Glucose (Misc Panel) 252H 12/04/19 11:46: Bedside Glucose (Misc Panel) 295H 12/04/19 12:19: Bedside Glucose (Misc Panel) 252H, Anion Gap 9, Glomerular Filtration Rate > 60.0, Calcium Level 8.6, Phosphorus Level 2.3L, Magnesium Level 2.2, B- Hydroxybutyrate 1.33 12/04/19 15:35: Bedside Glucose (Misc Panel) 33*L 12/04/19 15:53: Bedside Glucose (Misc Panel) 54L 12/04/19 16:28: Bedside Glucose (Misc Panel) 41L 12/04/19 16:45: Anion Gap 8, Glomerular Filtration Rate > 60.0, Calcium Level 9.1, Phosphorus Level 2.4L, Magnesium Level 2.0 12/04/19 16:51: Bedside Glucose (Misc Panel) 88 12/04/19 19:55: Bedside Glucose (Misc Panel) 79, Anion Gap 7L, Glomerular Filtration Rate > 60.0, Calcium Level 9.3, Phosphorus Level 3.0#, Magnesium Level 1.9 12/04/19 23:53: Anion Gap 11, Glomerular Filtration Rate > 60.0, Calcium Level 9.0, Phosphorus Level 3.3, Magnesium Level 1.9 12/05/19 04:07: Anion Gap 12, Glomerular Filtration Rate > 60.0, Calcium Level 8.5, Phosphorus Level 3.7, Magnesium Level 1.6L, Immature Granulocyte % (Auto) 0.2, Neutrophils (%) (Auto) 52.4, Lymphocytes (%) (Auto) 38.6, Monocytes (%) (Auto) 7.3H, Eosinophils (%) (Auto) 1.3, Basophils (%) (Auto) 0.2, Neutrophils # (Auto) 2.9, Lymphocytes # (Auto) 2.2, Monocytes # (Auto) 0.4, Eosinophils # (Auto) 0.1, Basophils # (Auto) 0.0, Nucleated Red Blood Cells % (auto) 0.0 12/05/19 07:25: Bedside Glucose (Misc Panel) 191H CBC/BMP Laboratory Tests 12/04/19 12:19 12/04/19 16:45 12/04/19 19:55 12/04/19 23:53 12/05/19 04:07 FSBS Laboratory Tests Test 12/04/19 09:27 12/04/19 11:46 12/04/19 12:19 12/04/19 15:35 Range/Units Bedside Glucose (Misc Panel) 252 295 252 33 70-105 MG/DL Test 12/04/19 15:53 12/04/19 16:28 12/04/19 16:51 12/04/19 19:55 Range/Units Bedside Glucose (Misc Panel) 54 41 88 79 70-105 MG/DL Test 12/05/19 07:25 Range/Units Bedside Glucose (Misc Panel) 191 70-105 MG/DL Microbiology Microbiology 12/02/19 Blood Culture - Preliminary, Resulted No Growth after 48 hours. All Specime... 12/02/19 Blood Culture - Preliminary, Resulted No Growth after 72 hours. All specime... Discharge Medications Scheduled Docusate Sodium (Dok) 100 Mg Capsule, 100 MG PO BID, (Reported) Ergocalciferol (Vitamin D2) (Vitamin D2) 50,000 Units Cap, 50,000 UNITS PO QWEEK, (Reported) Insulin Glargine,Hum.rec.anlog (Lantus Solostar) 100 Unit/1 Ml Insuln.pen, 5 UNITS SC DAILY Miscellaneous Medications Insulin Lispro (Humalog Kwikpen U-100) 100 Unit/1 Ml Insuln.pen, 1 DOSE SC, (Reported) Allergies Coded Allergies: No Known Allergies (Unverified , 10/01/19) EUSEBIA WEATHERS MD December 05, 2019 08:47
[2019-12-05] MEDS ORDERED: LEVEMIR (INSULIN DETEMIR) 1 UNITS/0.01ML SC SCH (09:00)
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
== END 2019-12-05 12:58 | DRG 917 ==
LOC: EDBD 00:57 → M ED 00:57 → M ED INP 03:35 → ENRESERV 03:58 → M PCU 04:38 → M ICU 12-03 19:44
PROVIDERS: ADMIT Internal Medicine; ATTEND Internal Medicine
DX: T43.222A Poisoning by selective serotonin reuptake inhibitors, intentional self-harm, initial encounter (principal); E10.10 Type 1 diabetes mellitus with ketoacidosis without coma; E10.65 Type 1 diabetes mellitus with hyperglycemia; J45.909 Unspecified asthma, uncomplicated; F31.9 Bipolar disorder, unspecified; F20.9 Schizophrenia, unspecified; E55.9 Vitamin D deficiency, unspecified; F17.290 Nicotine dependence, other tobacco product, uncomplicated; R00.0 Tachycardia, unspecified; E83.42 Hypomagnesemia; Z79.4 Long term (current) use of insulin; Z79.899 Other long term (current) drug therapy; Z91.14 Patient's other noncompliance with medication regimen

== ENCOUNTER 2019-12-05 09:26 | Inpatient (IN) | payer OTHER ==
[~2019-12-05] VITALS: Ht 149.9 cm; Wt 57.9 kg
[~2019-12-05 09:26] MED LIST changes: +DOK1CAP7 PO; +HUMA100I5 SC; +TRES100I SC; +VITA50005 PO; +med rec comment
[2019-12-05] MEDS ORDERED: MOM 30ML SUSPENSION UDC PO PRN (12:00)
[2019-12-05 13:10] VITALS: BP 136/88
[2019-12-05] MEDS ORDERED: DEXTROSE 50% 50 ML SYRINGE IV PRN (14:00)
[2019-12-05] MEDS ORDERED: GLUCAGON INJ 1MG VIAL SC PRN (14:00)
[2019-12-05] MEDS ORDERED: GLUCOSE 4GM CHEW TABLET PO PRN (14:00)
[2019-12-05] MEDS ORDERED: ALBUTEROL SULFATE 2.5 MG/0.5 ML INH NEB SOLN INH PRN (15:00)
--- NOTE | 2019-12-05 15:33 | HPEPDOC ---
General Date of Admission December 05, 2019 at 13:00 Date of Service: December 05, 2019 Chief Complaint The patient is a 24-year-old female who presented to [facility] emergency room after she had a suicidal attempt with drug overdose History of Present Illness Patients 22-year-old female with a past medical history of IDDM1, Asthma, Bipolar / Depression / Schizophrenia who presented to the ER after she had overdosed with citalopram. Patient reported to have taken at least 10 pills of citalopram. Procedure was contacted and recommended observation for 24 hours under telemetry. Throughout hospital course patient had developed DKA and was transitioned to the ICU for insulin drip. Patient was ultimately transitioned to subcutaneous insulin on 12/04/2019. Patient was medically cleared for transition to inpatient mental health unit on 12/05/2019. Patient was seen and evaluated in the inpatient mental health unit. Hospitalist services consultation for medical screening evaluation. Patient reports that when she ambulates she experiences some shortness of breath when she has describes chest tightness. Patient denies any cough or palpitations. Denies nausea, vomiting, abdominal pain, diarrhea, constipation, or urinary discomfort. She also reports that she experiences pain in both her legs. She attributes this to her neuropathy. . She has indicated that she does not want to take any gabapentin and has requested the use marijuana. Home Medications Scheduled Docusate Sodium (Dok) 100 Mg Capsule, 100 MG PO BID, (Reported) Ergocalciferol (Vitamin D2) (Vitamin D2) 50,000 Units Cap, 50,000 UNITS PO QWEEK, (Reported) Insulin Glargine,Hum.rec.anlog (Lantus Solostar) 100 Unit/1 Ml Insuln.pen, 5 UNITS SC DAILY Miscellaneous Medications Insulin Lispro (Humalog Kwikpen U-100) 100 Unit/1 Ml Insuln.pen, 1 DOSE SC, (Reported) Allergies Coded Allergies: No Known Allergies (Unverified , 10/01/19) Past Medical History Medical History IDDM1, Asthma, Bipolar / Depression / Schizophrenia Surgical History Family History - Family history of heart disease, diabetes, mental illness and substance abuse Social History - Denies the use of tobacco; patient reports that she drinks alcohol socially. Has reported the use of marijuana - Denies recent travel or sick contacts - Lives with and son Review of Systems Other systems 10 point review of systems complete, all negative otherwise stated in HPI Vital Signs - Vitals: BP 1336/88, HR 85, RR 16, Sat 100%RA, Temp 97.8F - General: Sitting up in chair, Speaking in full sentences, AAOx3 - HEENT: NC, AT, PERRLA, EOMI - CVS: +S1S2 - Lungs: Fair air entry bilaterally, No appreciable wheezing / rales / rhonchi - Abdomen: Soft, Non-distended, Non-tender - Extremities: No lower extremity edema, No calf tenderness - Neuro: No focal motor or sensory deficit - Skin: No visible rashes Plan Plan Suicidal attempt with overdose of citalopram - s/p Citalopram overdose - Managed by psychiatry IDDM1 - s/p Recent DKA - Will continue with ISS and adjusted dose of Levemir Asthma - Reported chest tightness with exertion - Physical without any wheezing noted - Will resume PRN inhaled therapy Bipolar / Depression / Schizophrenia - Managed by psychiatry Vitamin D deficiency - Will resume supplementation as an outpatient DVT prophylaxis - c/w early ambulation Female aerotriangulation specialist was present for the duration of this history and physical examination Thank you for this consultation; please reconsult as needed EUSEBIA WEATHERS MD December 05, 2019 15:33
[2019-12-05] MEDS: OLANZapine ORAL DISINTEGRATING TAB 5MG PO PRN (16:33)
[2019-12-05 16:34] VITALS: BP 135/80
--- NOTE | 2019-12-05 17:11 | REP ---
Portable chest x-ray: Single view. History: Chest pain. Comparison chest x-ray: December 02, 2019. Findings: The lungs are symmetrically aerated and clear. The pleural angles are sharp. Heart size is normal. Pulmonary vasculature is not increased. No bony abnormality is seen. Impression: Negative portable chest x-ray. Electronically Signed by James Mora MD 12/05/2019 05:03 P
[2019-12-05] MEDS: HumaLOG INSULIN (NovoLOG) PER UNIT SC SCH ×2 (17:37→20:44)
[2019-12-05 18:27] LABS: CK-MB VALUE MASS < 1.0 NG/ML (<3.6); CPK CREATINE PHOSPHOKINASE 34 U/L (26-192); MB/CK RELATIVE INDEX 2.94 (< OR =4); TROPONIN I < 0.02 NG/ML (< 0.10)
[2019-12-05] MEDS: ACETAMINOPHEN TAB 650MG DOSE (2X325MG) PO PRN (20:47)
[2019-12-05] MEDS: traZODone 50 MG TAB PO PRN (22:43)
[2019-12-05 23:02] LABS: CK-MB VALUE MASS < 1.0 NG/ML (<3.6); CPK CREATINE PHOSPHOKINASE 44 U/L (26-192); MB/CK RELATIVE INDEX 2.27 (< OR =4); TROPONIN I < 0.02 NG/ML (< 0.10)
[2019-12-06 06:09] VITALS: BP 135/88
[2019-12-06] MEDS: HumaLOG INSULIN (NovoLOG) PER UNIT SC SCH ×4 (06:43→20:12)
[2019-12-06] MEDS: MAALOX 30 ML SUSP *UDC PO PRN (06:59)
[2019-12-06] MEDS: OLANZapine ORAL DISINTEGRATING TAB 5MG PO PRN (08:31)
[2019-12-06] MEDS: LEVEMIR (INSULIN DETEMIR) 1 UNITS/0.01ML SC SCH (08:31)
--- NOTE | 2019-12-06 09:32 | MHHPEPDOC ---
[facility] History & Physical History and Physical DATE OF ADMISSION: December 05, 2019 at 13:00 New Patient Daniel Dalton MRN: N/A Date of : N/A Date of Service: 12/06/2019 Chief Complaint "I am getting there." History of Present Illness The patient a 24-year-old woman presents to [facility] after reportedly overdosing on Celexa. She was admitted to the medical floor where she was seen in consultation. However the consultation note is not available at this time for review. The patient had been noted to be somewhat psychotic, hyperverbal and difficult to redirect. When the patient was met with she was still quite hyperverbal, difficult to engage in a full and comprehensive review other than to relate that she had reportedly been diagnosed with bipolar disorder. Information was extracted from the chart as much as able as the patient was not able to provide a comprehensive review of her history. Review Of Systems Unable to determine due to mental status. Past Psychiatric History Reportedly has a history of bipolar, no known history of inpatient admissions. Currently treated with Celexa, previously has tried reportedly Abilify and other antipsychotics, unclear if patient is unredirectable. Allergies Please see below. Family Psychiatric History Unknown at this time. Social History The patient is a dependent, reportedly lives with spouse. Unknown education and legal history at this time. Substance Abuse History Toxicology unremarkable. Does report using cannabis. Medical History Type 1 diabetes. Mental Status Examination General: Well dressed with good hygiene Speech: Hyperverbal. Thought processes: Tangential MSK: Smooth and coordinated gait, no signs of tremors or involuntary orofacial movements Thought content: Future orientated Abstract reasoning, and computation: Intact Description of associations: Loosened Description of abnormal or psychotic thoughts: Unknown. Judgment: Limited Insight: Limited Orientation: Alert and orientated 3 Cognition: Grossly normal Recent and remote memory: Intact Attention span and concentration: Intact Fund of knowledge: Adequate Mood: "okay" Affect: Euphoric Diagnoses Unspecified bipolar disorder. Cannabis use disorder, unspecified. Assessment and Plan Unspecified bipolar disorder: Patient reports trying a number of different medications including Latuda, Abilify, risperidone and others, will try Vraylar 1.5 mg, attempted to explain risks and benefits as much as patient is able to understand at this time. Cannabis use disorder: Recommend abstinence. Disposition Patient will need to be continued on involuntary admission as she is still quite hyperverbal and distractible as well as impulsive. Problem List 1. Altered thoughts. Initial Treatment Plan 1. Patient was admitted on a 9.39 legal status. 2. Complete history was obtained. 3. With patients permission, family will be contacted and database will be e xpanded. 4. Patients medication regimen will be reviewed and changed accordingly. 5. Patient will be provided with protected environment. 6. Patient will be treated with individual, group, and milieu therapies. 7. Patient will receive supportive psych-education. 8. Discharge planning will commence immediately. 9. Outpatient follow-up treatment will be strongly recommended. 10. The initial treatment plan will focus initially on: Estimated Length Of Stay 4 days. Time Spent 70 minutes with greater than 50% of time spent on counseling/coordination of care. Vital Signs Vital Signs Date Time Temp Pulse Resp B/P (MAP) Pulse Ox O2 Delivery O2 Flow Rate FiO2 12/06/19 06:09 97.6 83 12 135/88 (104) Room Air 12/05/19 16:34 98 Laboratory Data 24H Labs Laboratory Tests 2 12/05/19 17:43: Total Creatine Kinase 34, Creatine Kinase MB < 1.0, Creatine Kinase MB Relative Index 2.94, Troponin I < 0.02 12/05/19 20:36: Bedside Glucose (Misc Panel) 71 12/05/19 22:32: Total Creatine Kinase 44, Creatine Kinase MB < 1.0, Creatine Kinase MB Relative Index 2.27, Troponin I < 0.02 12/06/19 06:31: Bedside Glucose (Misc Panel) 310H FSBS Laboratory Tests Test 12/05/19 20:36 12/06/19 06:31 Range/Units Bedside Glucose (Misc Panel) 71 310 70-105 MG/DL Medications Scheduled Docusate Sodium (Dok) 100 Mg Capsule, 100 MG PO BID, (Reported) Ergocalciferol (Vitamin D2) (Vitamin D2) 50,000 Units Cap, 50,000 UNITS PO QWEEK, (Reported) Insulin Glargine,Hum.rec.anlog (Lantus Solostar) 100 Unit/1 Ml Insuln.pen, 5 UNITS SC DAILY Miscellaneous Medications Insulin Lispro (Humalog Kwikpen U-100) 100 Unit/1 Ml Insuln.pen, 1 DOSE SC, (Reported) Allergies Coded Allergies: No Known Allergies (Unverified , 10/01/19) TRAVIS SINGH DO December 06, 2019 09:32
[2019-12-06] MEDS ORDERED: CARIPRAZINE 1.5MG CAPSULE (VRAYLAR) PO ONE (10:00)
[2019-12-06] MEDS: CARIPRAZINE 1.5MG CAPSULE (VRAYLAR) PO SCH (10:19)
[2019-12-06 16:01] VITALS: BP 111/60
[2019-12-06] MEDS ORDERED: LURASIDONE 20 MG TAB (LATUDA) PO SCH (18:00)
--- NOTE | 2019-12-06 20:59 | ECGEPIP ---
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 Electronically Signed on 12-06-2019 20:58:56 EDT by Ashwin Bone
[2019-12-06] MEDS: traZODone 50 MG TAB PO PRN (21:00)
[2019-12-06] MEDS: ACETAMINOPHEN TAB 650MG DOSE (2X325MG) PO PRN (21:52)
[2019-12-07] MEDS: ACETAMINOPHEN TAB 650MG DOSE (2X325MG) PO PRN ×2 (06:05→21:10)
[2019-12-07 06:06] VITALS: BP 140/84
[2019-12-07] MEDS: HumaLOG INSULIN (NovoLOG) PER UNIT SC SCH ×4 (07:14→20:14)
[2019-12-07] MEDS: MAALOX 30 ML SUSP *UDC PO PRN (08:30)
[2019-12-07] MEDS: hydrOXYzine 25 MG TAB PO PRN (08:31)
[2019-12-07] MEDS: CARIPRAZINE 1.5MG CAPSULE (VRAYLAR) PO SCH (08:31)
[2019-12-07] MEDS: LEVEMIR (INSULIN DETEMIR) 1 UNITS/0.01ML SC SCH ×2 (08:31→20:18)
--- NOTE | 2019-12-07 09:56 | MHIPNPDOC ---
[facility] Progress Note Progress Note Inpatient Progress Note Daniel Dalton MRN: N/A Date of : N/A Date of Service: 12/07/2019 History of Present Illness The patient a 24-year-old woman presents to [facility] after reportedly overdosing on Celexa. She was admitted to the medical floor where she was seen in consultation. However the consultation note is not available at this time for review. The patient had been noted to be somewhat psychotic, hyperverb al and difficult to redirect. When the patient was met with she was still quite hyperverbal, difficult to engage in a full and comprehensive review other than to relate that she had reportedly been diagnosed with bipolar disorder. Information was extracted from the chart as much as able as the patient was not able to provide a comprehensive review of her history. Interval History The patient is met with today. She is much less hyperverbal and much more engaged in the interview. She reports she is feeling "better" since starting the Vraylar. She has had notably less behavioral issues overnight and has been making progress. She states that she is still having constipation and wishes to change the medications for constipation as they have not been effective. Review Of Systems General: Denies fever or appetite changes Cardiovascular: Denies Chest pain or palpations GI: As above. Respiratory: Denies shortness of breath or cough Neuro: Denies dizziness, tremors Derm: Denies any rashes or pruritus : Denies any dysuria or urinary problems MSK: Denies any muscle tightness or stiffness HEENT: Denies any vision changes or headaches Psychotherapy None on this visit. Vital Signs Reviewed. Mental Status Examination General: Well dressed with good hygiene Speech: Less verbal. Thought processes: More linear MSK: Smooth and coordinated gait, no signs of tremors or involuntary orofacial movements Thought content: orientated Abstract reasoning, and computation: Intact Description of associations: Loosened Description of abnormal or psychotic thoughts: Less psychotic thoughts. No suicidal or homicidal ideation Judgment: Improved Insight: Improved Orientation: Alert and orientated 3 Cognition: Grossly normal Recent and remote memory: Intact Attention span and concentration: Intact Fund of knowledge: Adequate Mood: "okay" Affect: Less euphoric Diagnoses Unspecified bipolar disorder. Cannabis use disorder, unspecified. Assessment and Plan Unspecified bipolar disorder: Continue Vraylar 1.5 mg nightly. Cannabis use disorder: Recommend abstinence. Disposition Continue to observe patient, anticipate discharge early next week if she continues to improve. Time Spent 15 minutes Tuesday Vital Signs Vital Signs Date Time Temp Pulse Resp B/P (MAP) Pulse Ox O2 Delivery O2 Flow Rate FiO2 12/07/19 06:06 98.9 108 14 140/84 (102) 98 Room Air Laboratory Data 24H Labs Laboratory Tests 2 12/06/19 11:47: Bedside Glucose (Misc Panel) 70 12/06/19 16:51: Bedside Glucose (Misc Panel) 202H 12/06/19 20:12: Bedside Glucose (Misc Panel) 220H 12/07/19 06:03: Bedside Glucose (Misc Panel) 456H Current Medications Current Medications Medications (Trade) Dose Ordered Sig/Tigist Route PRN Reason Start Time Stop Time Status Last Admin Dose Admin Acetaminophen (Tylenol Tab) 650 mg Q6HP PRN PO HEADACHE or DISCOMFORT 12/05/19 12:00 12/07/19 06:05 Al Hydrox/Mg Hydrox/Simethicone (Mylanta) 30 ml Q4HP PRN PO HEARTBURN/INDIGESTION 12/05/19 12:00 12/07/19 08:30 Albuterol Sulfate (Proventil Neb) 2.5 mg Q2HP PRN INH SOB/WHEEZING 12/05/19 15:00 Cariprazine (Vraylar) 1.5 mg DAILY PO 12/06/19 09:00 12/07/19 08:31 Dextrose (Dextrose 50%) 25 ml ASDIRECTED PRN IV SEE LABEL COMMENTS 12/05/19 14:00 Glucagon (Glucagon) 1 mg ASDIRECTED PRN SC SEE LABEL COMMENTS 12/05/19 14:00 Glucose (Glucose) 16 GM ASDIRECTED PRN PO SEE LABEL COMMENTS 12/05/19 14:00 Hydroxyzine HCl (Atarax) 25 mg Q4HP PRN PO ANXIETY/AGITATION 12/06/19 09:30 12/07/19 08:31 Insulin Detemir (Levemir Insulin) 5 units DAILY SC 12/06/19 09:00 12/07/19 08:31 Insulin Human Lispro (HumaLOG INSULIN) SEE PROTOCOL TABLE AC SC 12/05/19 17:30 12/07/19 07:14 Insulin Human Lispro (HumaLOG INSULIN) SEE PROTOCOL TABLE QHS SC 12/05/19 21:00 Lurasidone HCl (Latuda) 20 mg DAILY@18 PO 12/06/19 18:00 12/06/19 09:55 DC Magnesium Hydroxide (Milk Of Magnesia) 30 ml DAILYPRN PRN PO CONSTIPATION 12/05/19 12:00 Olanzapine (ZyPREXA ZYDIS) 5 mg Q6HP PRN PO ANXIETY/AGITATION 12/05/19 12:00 12/06/19 09:30 DC 12/06/19 08:31 Trazodone HCl (Desyrel) 50 mg QHSP PRN PO INSOMNIA 12/05/19 12:00 12/06/19 21:00 Allergies Coded Allergies: No Known Allergies (Unverified , 10/01/19) TRAVIS SINGH DO December 07, 2019 09:56
[2019-12-07] MEDS: SENNA 8.6 MG TAB (SENOKOT) PO PRN (10:26)
[2019-12-07 18:42] LABS: VENOUS BASE EXCESS 0.7 (-2.0-2.0); VENOUS HCO3 26.4 MEQ/L (23.0-27.0); VENOUS O2 SATURATION 76.6 % (60.0-80.0); VENOUS PARTIAL PRESSURE CO2 46.4 mmHg (38.0-50.0); VENOUS PARTIAL PRESSURE O2 47.3 mmHg (30.0-50.0); VENOUS PH 7.373 UNITS (7.330-7.430); VENOUS STANDARD HCO3 24.6 MEQ/L; VENOUS TOTAL CO2 27.8 MEQ/L (24.0-28.0)
[2019-12-07 18:52] LABS: EOS # 0.1 10^3/uL (0.0-0.5); EOS % 0.8 % (0.0-3.0); HEMATOCRIT 41.1 % (36.0-47.0); HEMOGLOBIN 13.8 g/dl (12.0-15.5); LYMPH % 53.9 % (24.0-44.0); MEAN CORPUSCULAR HEMOGLOBIN 31.1 pg (27.0-33.0); MEAN CORPUSCULAR HGB CONC 33.6 g/dl (32.0-36.5); MEAN CORPUSCULAR VOLUME 92.6 fl (80.0-96.0); MONO # 0.3 10^3/uL (0.0-0.8); MONO % 4.5 % (0.0-5.0); NEUTROPHILS % 40.7 % (36.0-66.0); PLATELET COUNT, AUTOMATED 300 10^3/uL (150-450); RED BLOOD COUNT 4.44 10^6/uL (4.00-5.40); WHITE BLOOD COUNT 7.4 10^3/uL (4.0-10.0)
[2019-12-07 19:25] LABS: ACETONE/KETONE 6.29 MG/DL (<2.81); BLOOD UREA NITROGEN 15 MG/DL (7-18); CALCIUM LEVEL 10.5 MG/DL (8.5-10.1); CARBON DIOXIDE LEVEL 27 MEQ/L (21-32); CHLORIDE LEVEL 99 MEQ/L (98-107); CREATININE FOR GFR 0.78 MG/DL (0.55-1.30); GLOMERULAR FILTRATION RATE > 60.0 (>60); GLUCOSE, FASTING 346 MG/DL (70-100); POTASSIUM SERUM 4.2 MEQ/L (3.5-5.1); SODIUM LEVEL 137 MEQ/L (136-145)
[2019-12-07] MEDS: traZODone 50 MG TAB PO PRN (21:11)
[2019-12-08] MEDS ORDERED: ONDANSETRON 4 MG TAB PO PRN (02:30)
[2019-12-08] MEDS ORDERED: HumaLOG INSULIN (NovoLOG) PER UNIT SC ONE (02:30)
[2019-12-08 03:11] LABS: VENOUS HCO3 27.3 MEQ/L (23.0-27.0); VENOUS O2 SATURATION 55.9 % (60.0-80.0); VENOUS PARTIAL PRESSURE CO2 44.9 mmHg (38.0-50.0); VENOUS PARTIAL PRESSURE O2 33.1 mmHg (30.0-50.0); VENOUS PH 7.401 UNITS (7.330-7.430); VENOUS STANDARD HCO3 25.3 MEQ/L; VENOUS TOTAL CO2 28.6 MEQ/L (24.0-28.0)
[2019-12-08 03:34] LABS: ACETONE/KETONE 9.52 MG/DL (<2.81); BLOOD UREA NITROGEN 16 MG/DL (7-18); CALCIUM LEVEL 10.2 MG/DL (8.5-10.1); CARBON DIOXIDE LEVEL 28 MEQ/L (21-32); CHLORIDE LEVEL 98 MEQ/L (98-107); CREATININE FOR GFR 0.67 MG/DL (0.55-1.30); GLOMERULAR FILTRATION RATE > 60.0 (>60); GLUCOSE, FASTING 358 MG/DL (70-100); POTASSIUM SERUM 4.5 MEQ/L (3.5-5.1); SODIUM LEVEL 135 MEQ/L (136-145)
[2019-12-08 03:42] LABS: OSMOLALITY SERUM 298 MOSM/KG (275-295)
[2019-12-08 06:00] LABS: ALBUMIN 3.5 GM/DL (3.2-5.2)
[2019-12-08] MEDS: HumaLOG INSULIN (NovoLOG) PER UNIT SC SCH ×4 (07:02→20:38)
[2019-12-08] MEDS: LEVEMIR (INSULIN DETEMIR) 1 UNITS/0.01ML SC SCH ×2 (08:27→20:38)
[2019-12-08] MEDS: SENNA 8.6 MG TAB (SENOKOT) PO PRN (08:27)
[2019-12-08] MEDS: CARIPRAZINE 1.5MG CAPSULE (VRAYLAR) PO SCH (08:28)
[2019-12-08 09:29] LABS: EOS % 0.6 % (0.0-3.0); HEMATOCRIT 38.7 % (36.0-47.0); HEMOGLOBIN 12.8 g/dl (12.0-15.5); LYMPH # 2.4 10^3/uL (1.5-5.0); LYMPH % 36.1 % (24.0-44.0); MEAN CORPUSCULAR HEMOGLOBIN 30.6 pg (27.0-33.0); MEAN CORPUSCULAR HGB CONC 33.1 g/dl (32.0-36.5); MEAN CORPUSCULAR VOLUME 92.6 fl (80.0-96.0); MONO # 0.4 10^3/uL (0.0-0.8); MONO % 5.3 % (0.0-5.0); NEUTROPHILS # 3.9 10^3/uL (1.5-8.5); NEUTROPHILS % 57.9 % (36.0-66.0); PLATELET COUNT, AUTOMATED 296 10^3/uL (150-450); RED BLOOD COUNT 4.18 10^6/uL (4.00-5.40); WHITE BLOOD COUNT 6.7 10^3/uL (4.0-10.0)
[2019-12-08 10:40] LABS: ACETONE/KETONE 1.85 MG/DL (<2.81); BLOOD UREA NITROGEN 14 MG/DL (7-18); CALCIUM LEVEL 9.9 MG/DL (8.5-10.1); CARBON DIOXIDE LEVEL 32 MEQ/L (21-32); CHLORIDE LEVEL 99 MEQ/L (98-107); CREATININE FOR GFR 0.74 MG/DL (0.55-1.30); GLOMERULAR FILTRATION RATE > 60.0 (>60); GLUCOSE, FASTING 293 MG/DL (70-100); MAGNESIUM LEVEL 1.8 MG/DL (1.8-2.4); POTASSIUM SERUM 5.2 MEQ/L (3.5-5.1); SODIUM LEVEL 136 MEQ/L (136-145)
--- NOTE | 2019-12-08 11:51 | MHIPNPDOC ---
[facility] Progress Note Progress Note Inpatient Progress Note Daniel Dalton MRN: N/A Date of : N/A Date of Service: 12/08/2019 History of Present Illness The patient a 24-year-old woman presents to [facility] after reportedly overdosing on Celexa. She was admitted to the medical floor where she was seen in consultation. However the consultation note is not available at this time for review. The patient had been noted to be somewhat psychotic, hyperverbal and difficult to redirect. When the patient was met with she was still quite hyperverbal, difficult to engage in a full and comprehensive review other than to relate that she had reportedly been diagnosed with bipolar disorder. Information was extracted from the chart as much as able as the patient was not able to provide a comprehensive review of her history. Interval History The patient is seen today. She reports she is feeling much better and that she is much more able. She had had an episode of being some paranoid with male staff, but otherwise had no issues overnight. She reports that she does want to be on a medicine that allows her to be on an injectable. She reports that otherwise she is doing well, is well motivated for treatment. Review Of Systems General: Denies fever or appetite changes Cardiovascular: Denies Chest pain or palpations GI: Constipation resolved. Respiratory: Denies shortness of breath or cough Neuro: Denies dizziness, tremors Derm: Denies any rashes or pruritus : Denies any dysuria or urinary problems MSK: Denies any muscle tightness or stiffness HEENT: Denies any vision changes or headaches Psychotherapy None on this visit. Vital Signs Reviewed. Mental Status Examination General: Well dressed with good hygiene Speech: Less verbal. Thought processes: More linear MSK: Smooth and coordinated gait, no signs of tremors or involuntary orofacial movements Thought content: orientated Abstract reasoning, and computation: Intact Description of associations: Loosened Description of abnormal or psychotic thoughts: Less psychotic thoughts. No suicidal or homicidal ideation Judgment: Improved Insight: Improved Orientation: Alert and orientated 3 Cognition: Grossly normal Recent and remote memory: Intact Attention span and concentration: Intact Fund of knowledge: Adequate Mood: "okay" Affect: Less euphoric Diagnoses Unspecified bipolar disorder. Cannabis use disorder, unspecified. Assessment and Plan Unspecified bipolar disorder: Discontinue Vraylar, start Invega 3 mg nightly. Cannabis use disorder: Recommend abstinence. The risks, benefits as well as common side effects as well as alternative treatments (including non-treatment) were discussed with the patient both in general and for their particular case. The patient selected this option out of a range. Disposition Will need to continue an inpatient care in order to be titrated onto another medication and effectively triaged for care. Time Spent 15 minutes Tuesday Vital Signs Vital Signs Date Time Temp Pulse Resp B/P (MAP) Pulse Ox O2 Delivery O2 Flow Rate FiO2 12/07/19 06:06 98.9 108 14 140/84 (102) 98 Room Air Laboratory Data 24H Labs Laboratory Tests 2 12/07/19 12:25: Bedside Glucose (Misc Panel) 172H 12/07/19 17:16: Bedside Glucose (Misc Panel) 337H 12/07/19 18:16: Immature Granulocyte % (Auto) 0.1, Neutrophils (%) (Auto) 40.7, Lymphocytes (%) (Auto) 53.9H, Monocytes (%) (Auto) 4.5, Eosinophils (%) (Auto) 0.8, Basophils (%) (Auto) 0.0, Neutrophils # (Auto) 3.0, Lymphocytes # (Auto) 4.0, Monocytes # (Auto) 0.3, Eosinophils # (Auto) 0.1, Basophils # (Auto) 0.0, Nucleated Red Blood Cells % (auto) 0.0, Blood Gas Bicarbonate Standard 24.6, Venous Blood pH 7.373, Venous Blood Partial Pressure CO2 46.4, Venous Blood Partial Pressure O2 47.3, Venous Blood Total Carbon Dioxide 27.8, Venous Blood HCO3 26.4, Venous Blood Oxygen Saturation 76.6, Venous Blood Base Excess 0.7, Anion Gap 11, Glomerular Filtration Rate > 60.0, Calcium Level 10.5#H, B-Hydroxybutyrate 6.29H 12/07/19 20:13: Bedside Glucose (Misc Panel) 231H 12/08/19 02:12: Bedside Glucose (Misc Panel) 345H 12/08/19 02:51: Blood Gas Bicarbonate Standard 25.3, Venous Blood pH 7.401, Venous Blood Partial Pressure CO2 44.9, Venous Blood Partial Pressure O2 33.1, Venous Blood Total Carbon Dioxide 28.6H, Venous Blood HCO3 27.3H, Venous Blood Oxygen Saturation 55.9L, Venous Blood Base Excess 2.0, Anion Gap 9, Glomerular Filtration Rate > 60.0, Osmolality 298H, Calcium Level 10.2H, Albumin 3.5, B-Hydroxybutyrate 9.52H 12/08/19 06:13: Bedside Glucose (Misc Panel) 224H 12/08/19 09:15: Anion Gap 5L, Glomerular Filtration Rate > 60.0, Calcium Level 9.9, B- Hydroxybutyrate 1.85, Immature Granulocyte % (Auto) 0.1, Neutrophils (%) (Auto) 57.9, Lymphocytes (%) (Auto) 36.1, Monocytes (%) (Auto) 5.3H, Eosinophils (%) (Auto) 0.6, Basophils (%) (Auto) 0.0, Neutrophils # (Auto) 3.9, Lymphocytes # (Auto) 2.4, Monocytes # (Auto) 0.4, Eosinophils # (Auto) 0.0, Basophils # (Auto) 0.0, Nucleated Red Blood Cells % (auto) 0.0, Magnesium Level 1.8 CBC/BMP Laboratory Tests 12/07/19 18:16 12/08/19 02:51 12/08/19 09:15 Current Medications Current Medications Medications (Trade) Dose Ordered Sig/Tigist Route PRN Reason Start Time Stop Time Status Last Admin Dose Admin Acetaminophen (Tylenol Tab) 650 mg Q6HP PRN PO HEADACHE or DISCOMFORT 12/05/19 12:00 12/07/19 21:10 Al Hydrox/Mg Hydrox/Simethicone (Mylanta) 30 ml Q4HP PRN PO HEARTBURN/INDIGESTION 12/05/19 12:00 12/07/19 08:30 Albuterol Sulfate (Proventil Neb) 2.5 mg Q2HP PRN INH SOB/WHEEZING 12/05/19 15:00 Cariprazine (Vraylar) 1.5 mg DAILY PO 12/06/19 09:00 12/08/19 08:28 Dextrose (Dextrose 50%) 25 ml ASDIRECTED PRN IV SEE LABEL COMMENTS 12/05/19 14:00 Glucagon (Glucagon) 1 mg ASDIRECTED PRN SC SEE LABEL COMMENTS 12/05/19 14:00 Glucose (Glucose) 16 GM ASDIRECTED PRN PO SEE LABEL COMMENTS 12/05/19 14:00 Hydroxyzine HCl (Atarax) 25 mg Q4HP PRN PO ANXIETY/AGITATION 12/06/19 09:30 12/07/19 08:31 Insulin Detemir (Levemir Insulin) 5 units DAILY SC 12/06/19 09:00 12/07/19 17:48 DC 12/07/19 08:31 Insulin Detemir (Levemir Insulin) 7 units BID SC 12/07/19 21:00 12/08/19 08:27 Insulin Human Lispro (HumaLOG INSULIN) SEE PROTOCOL TABLE AC SC 12/05/19 17:30 12/08/19 07:02 Insulin Human Lispro (HumaLOG INSULIN) SEE PROTOCOL TABLE QHS SC 12/05/19 21:00 Lurasidone HCl (Latuda) 20 mg DAILY@18 PO 12/06/19 18:00 12/06/19 09:55 DC Magnesium Hydroxide (Milk Of Magnesia) 30 ml DAILYPRN PRN PO CONSTIPATION 12/05/19 12:00 Olanzapine (ZyPREXA ZYDIS) 5 mg Q6HP PRN PO ANXIETY/AGITATION 12/05/19 12:00 12/06/19 09:30 DC 12/06/19 08:31 Ondansetron HCl (Zofran) 4 mg Q4HP PRN PO NAUSEA OR VOMITING 12/08/19 02:30 Senna (Senokot) 1 tab Q12HP PRN PO CONSTIPATION 12/07/19 10:15 12/08/19 08:27 Trazodone HCl (Desyrel) 50 mg QHSP PRN PO INSOMNIA 12/05/19 12:00 12/07/19 21:11 Allergies Coded Allergies: No Known Allergies (Unverified , 10/01/19) TRAVIS SINGH DO December 08, 2019 11:51
[2019-12-08] MEDS: ACETAMINOPHEN TAB 650MG DOSE (2X325MG) PO PRN (11:57)
[2019-12-08] MEDS ORDERED: SOD POLYSTYRENE SULFONATE SUSP 15 GM/60 ML UD PO ONE (12:00)
[2019-12-08 16:14] VITALS: BP 125/59
[2019-12-08 18:30] LABS: POTASSIUM SERUM 3.7 MEQ/L (3.5-5.1)
[2019-12-08] MEDS: PALIPERIDONE 3 MG ER TAB (INVEGA) PO SCH (20:36)
[2019-12-08] MEDS: hydrOXYzine 25 MG TAB PO PRN (20:36)
[2019-12-09] MEDS: traZODone 50 MG TAB PO PRN ×2 (00:10→20:58)
[2019-12-09 06:28] VITALS: BP 138/63
[2019-12-09] MEDS: HumaLOG INSULIN (NovoLOG) PER UNIT SC SCH ×4 (07:02→20:53)
[2019-12-09] MEDS: LEVEMIR (INSULIN DETEMIR) 1 UNITS/0.01ML SC SCH ×2 (08:21→20:56)
[2019-12-09] MEDS: SENNA 8.6 MG TAB (SENOKOT) PO PRN (08:21)
--- NOTE | 2019-12-09 11:35 | MHIPNPDOC ---
[facility] Progress Note Progress Note Inpatient Progress Note Daniel Dalton MRN: N/A Date of : N/A Date of Service: 12/09/2019 History of Present Illness The patient a 24-year-old woman presents to [facility] after reportedly overdosing on Celexa. She was admitted to the medical floor where she was seen in consultation. However the consultation note is not available at this time for review. The patient had been noted to be somewhat psychotic, hyperverbal and difficult to redirect. When the patient was met with she was still quite hyperverbal, difficult to engage in a full and comprehensive review other than to relate that she had repo rtedly been diagnosed with bipolar disorder. Information was extracted from the chart as much as able as the patient was not able to provide a comprehensive review of her history. Interval History The patient is met with today. She reports that she is doing much better. She reports she had had some tremors, but her blood sugar was normal but otherwise has been tolerating the medication well without any side effects. Other reported she has been doing well with no major behavioral problems overnight. She is interested in being discharged tomorrow. Review Of Systems General: Denies fever or appetite changes Cardiovascular: Denies Chest pain or palpations GI: Constipation resolved. Respiratory: Denies shortness of breath or cough Neuro: Denies dizziness, tremors as above, none currently. Derm: Denies any rashes or pruritus : Denies any dysuria or urinary problems MSK: Denies any muscle tightness or stiffness HEENT: Denies any vision changes or headaches Psychotherapy None on this visit. Vital Signs Reviewed. Mental Status Examination General: Well dressed with good hygiene Speech: Spontaneous and fluid Thought processes: Linear and logical MSK: Smooth and coordinated gait, no signs of tremors or involuntary orofacial movements Thought content: Future orientated Abstract reasoning, and computation: Intact Description of associations: Intact Description of abnormal or psychotic thoughts: Denies any suicidal or homicidal ideation. Denies any auditory or visual hallucinations. Does not appear to be responding to internal stimuli. Does not appear to be endorsing any bizarre or p aranoid ideation. Judgment: fair Insight: fair Orientation: Alert and orientated 3 Cognition: Grossly normal Recent and remote memory: Intact Attention span and concentration: Intact Fund of knowledge: Adequate Mood: "okay" Affect: Euthymic with a full range Diagnoses Unspecified bipolar disorder. Cannabis use disorder, unspecified. Assessment and Plan Unspecified bipolar disorder: Discontinue Vraylar, start Invega 3 mg nightly. Cannabis use disorder: Recommend abstinence. The risks, benefits as well as common side effects as well as alternative treatments (including non-treatment) were discussed with the patient both in general and for their particular case. The patient selected this option out of a range. Continue Invega 3 mg nightly, injection of 254 mg of Invega Sustenna given, second injection will begin later this week in outpatient. Disposition Discharge tomorrow if continues to improve. Time Spent 15 minutes. Tuesday Vital Signs Vital Signs Date Time Temp Pulse Resp B/P (MAP) Pulse Ox O2 Delivery O2 Flow Rate FiO2 12/09/19 06:28 98.1 115 14 138/63 (88) 98 Room Air Laboratory Data 24H Labs Laboratory Tests 2 12/08/19 11:54: Bedside Glucose (Misc Panel) 230H 12/08/19 17:05: Bedside Glucose (Misc Panel) 365H 12/08/19 20:29: Bedside Glucose (Misc Panel) 293H 12/09/19 00:07: Bedside Glucose (Misc Panel) 237H 12/09/19 03:33: Bedside Glucose (Misc Panel) 239H 12/09/19 06:35: Bedside Glucose (Misc Panel) 292H CBC/BMP Laboratory Tests 12/08/19 17:59 Current Medications Current Medications Medications (Trade) Dose Ordered Sig/Tigist Route PRN Reason Start Time Stop Time Status Last Admin Dose Admin Acetaminophen (Tylenol Tab) 650 mg Q6HP PRN PO HEADACHE or DISCOMFORT 12/05/19 12:00 12/08/19 11:57 Al Hydrox/Mg Hydrox/Simethicone (Mylanta) 30 ml Q4HP PRN PO HEARTBURN/INDIGESTION 12/05/19 12:00 12/07/19 08:30 Albuterol Sulfate (Proventil Neb) 2.5 mg Q2HP PRN INH SOB/WHEEZING 12/05/19 15:00 Cariprazine (Vraylar) 1.5 mg DAILY PO 12/06/19 09:00 12/08/19 13:52 DC 12/08/19 08:28 Dextrose (Dextrose 50%) 25 ml ASDIRECTED PRN IV SEE LABEL COMMENTS 12/05/19 14:00 Glucagon (Glucagon) 1 mg ASDIRECTED PRN SC SEE LABEL COMMENTS 12/05/19 14:00 Glucose (Glucose) 16 GM ASDIRECTED PRN PO SEE LABEL COMMENTS 12/05/19 14:00 Hydroxyzine HCl (Atarax) 25 mg Q4HP PRN PO ANXIETY/AGITATION 12/06/19 09:30 12/07/19 08:31 Insulin Detemir (Levemir Insulin) 5 units DAILY SC 12/06/19 09:00 12/07/19 17:48 DC 12/07/19 08:31 Insulin Detemir (Levemir Insulin) 7 units BID SC 12/07/19 21:00 12/08/19 14:38 DC 12/08/19 08:27 Insulin Detemir (Levemir Insulin) 10 units BID SC 12/08/19 21:00 12/09/19 08:21 Insulin Human Lispro (HumaLOG INSULIN) SEE PROTOCOL TABLE AC SC 12/05/19 17:30 12/09/19 07:02 Insulin Human Lispro (HumaLOG INSULIN) SEE PROTOCOL TABLE QHS SC 12/05/19 21:00 12/08/19 20:38 Lurasidone HCl (Latuda) 20 mg DAILY@18 PO 12/06/19 18:00 12/06/19 09:55 DC Magnesium Hydroxide (Milk Of Magnesia) 30 ml DAILYPRN PRN PO CONSTIPATION 12/05/19 12:00 Olanzapine (ZyPREXA ZYDIS) 5 mg Q6HP PRN PO ANXIETY/AGITATION 12/05/19 12:00 12/06/19 09:30 DC 12/06/19 08:31 Ondansetron HCl (Zofran) 4 mg Q4HP PRN PO NAUSEA OR VOMITING 12/08/19 02:30 Paliperidone (Invega) 3 mg QHS PO 12/08/19 21:00 12/08/19 20:36 Senna (Senokot) 1 tab Q12HP PRN PO CONSTIPATION 12/07/19 10:15 12/09/19 08:21 Trazodone HCl (Desyrel) 50 mg QHSP PRN PO INSOMNIA 12/05/19 12:00 12/09/19 00:10 Allergies Coded Allergies: No Known Allergies (Unverified , 3/2/20) TRAVIS SINGH DO December 09, 2019 11:35
[2019-12-09 13:20] LABS: CHOLESTEROL LEVEL 230 MG/DL (<200); CHOLESTEROL RISK RATIO 4.035 (<5); HDL CHOLESTEROL 57 MG/DL (>40); NON-HDL-C 173 MG/DL; TRIGLYCERIDES LEVEL 657 MG/DL (<150)
[2019-12-09] MEDS ORDERED: PALIPERIDONE PALMITATE 234MG/1.5ML INJ (INVEGA)(FREE PSY INPT ONLY) IM ONE (15:00)
[2019-12-09 15:21] VITALS: BP 129/76
[2019-12-09] MEDS: ACETAMINOPHEN TAB 650MG DOSE (2X325MG) PO PRN (15:34)
[2019-12-09] MEDS: PALIPERIDONE 3 MG ER TAB (INVEGA) PO SCH (20:55)
[2019-12-10 06:19] VITALS: BP 138/69
[2019-12-10] MEDS: HumaLOG INSULIN (NovoLOG) PER UNIT SC SCH ×2 (07:02→12:17)
[2019-12-10 08:29] LABS: HEMOGLOBIN A1c 10.2 %
[2019-12-10] MEDS: LEVEMIR (INSULIN DETEMIR) 1 UNITS/0.01ML SC SCH (08:40)
--- NOTE | 2019-12-10 09:50 | MHDSPDOC ---
[facility] Discharge Summary Discharge Summary DATE OF ADMISSION: December 05, 2019 at 13:00 DATE OF DISCHARGE: 12/10/2019 Discharge Daniel Dalton MRN: N/[id number] Date of : N/A Date of Service: 12/10/2019 Diagnoses Unspecified bipolar disorder. Cannabis use disorder, unspecified. History of Present Illness The patient a 24-year-old woman presents to [facility] after reportedly overdosing on Celexa. She was admitted to the medical floor where she was seen in consultation. However the consultation note is not available at this time for review. The patient had been noted to be somewhat psychotic, hyperverbal and difficult to redirect. When the patient was met with she was still quite hyperverbal, difficult to engage in a full and comprehensive review other than to relate that she had reportedly been diagnosed with bipolar disorder. Information was extracted from the chart as much as able as the patient was not able to provide a comprehensive review of her history. Consultants Involved Hospitalist/PCP screening Treatment and Progress On The Unit The patient was admitted to the inpatient mental health unit. She was initially tried on Vraylar, she had tried a number of other medicines with poor results. She did well and normalized quite quickly on Vraylar 1.5 mg. She initially was quite bizarre, but became much more focused. She then wished to be on the injectable medicine and was changed to Invega 3 mg nightly, where she was subsequently then given the next dose of 254 mg. She did quite well and had requested discharge. Arrangements were made for her to get her second shot once she had left as she had made significant progress and was doing quite well on our unit. She had generally an uneventful admission making significant progress. Discharge Assessment 24-year-old woman with likely bipolar disorder presents in a mild manic state, she is treated with appropriate mood stabilizer and injectable started. The patient at the time of discharge did not meet criteria for involuntary admission/extension due to having a normal mental status exam, fair insight into the situation, They are engaged in the discharge process, as well as being friendly and amenable in behavioral control and havent been engaging in any observed concerning behavior or ideation recently. They decline voluntary extension/admission at this time and must be discharged in good bora, as Im unable to make a case for holding the patient against their will. They may have historical risk factors of admissions and other interactions with psychiatry however, those are not modifiable from a clinical perspective. The patient will need to be discharged in good bora. Mental Status Examination General: Well dressed with good hygiene Speech: Spontaneous and fluid Thought processes: Linear and logical MSK: Smooth and coordinated gait, no signs of tremors or involuntary orofacial movements Thought content: Future orientated Abstract reasoning, and computation: Intact Description of associations: Intact Description of abnormal or psychotic thoughts: Denies any suicidal or homicidal ideation. Denies any auditory or visual hallucinations. Does not appear to be responding to internal stimuli. Does not appear to be endorsing any bizarre or paranoid ideation. Judgment: fair Insight: fair Orientation: Alert and orientated 3 Cognition: Grossly normal Recent and remote memory: Intact Attention span and concentration: Intact Fund of knowledge: Adequate Mood: "okay" Affect: Euthymic with a full range Follow Up The social work team worked during the predischarge meeting in order to evaluate for further issues of lethality address them fully before discharge. They worked on safety planning with the patient's family members in order to ensure that the patient will have a safe and effective discharge. Time Spent The amount of time spent in the coordination of care for this patient was approximately 45 minutes. Tuesday Vital Signs/I&Os Vital Signs Date Time Temp Pulse Resp B/P (MAP) Pulse Ox O2 Delivery O2 Flow Rate FiO2 12/10/19 06:19 97.3 118 16 138/69 (92) 12/09/19 06:28 98 Room Air Laboratory Data Labs 24H Laboratory Tests 2 12/09/19 11:54: Bedside Glucose (Misc Panel) 257H 12/09/19 16:51: Bedside Glucose (Misc Panel) 237H 12/09/19 20:53: Bedside Glucose (Misc Panel) 165H 12/10/19 02:53: Bedside Glucose (Misc Panel) 227H 12/10/19 06:57: Bedside Glucose (Misc Panel) 266H Medications Scheduled Ergocalciferol (Vitamin D2) (Vitamin D2) 50,000 Units Cap, 50,000 UNITS PO QWEEK, (Reported) Insulin Glargine,Hum.rec.anlog (Lantus Solostar) 100 Unit/1 Ml Insuln.pen, 5 UNITS SC DAILY for 30 Days, #1 Paliperidone (Paliperidone ER) 3 Mg Tab.er.24, 3 MG PO QHS for thoughts for 7 Days, #7 Paliperidone Palmitate (Invega Sustenna) 156 Mg/1 Ml Syringe, 1 SYRINGE IM Q30D for thoughts for 30 Days, #1 please give between 12/11- for first injection, then monthly after Scheduled PRN Senna (Senna Lax) 8.6 Mg Tablet, 1 TAB PO Q12HP PRN for CONSTIPATION for 7 Days, #7 Miscellaneous Medications Insulin Lispro (Humalog Kwikpen U-100) 100 Unit/1 Ml Insuln.pen, 1 DOSE SC, (Reported) Allergies Coded Allergies: No Known Allergies (Unverified , 10/01/19) TRAVIS SINGH DO December 10, 2019 09:50
[2019-12-10] MEDS ORDERED: PALI1TAB2 PO (10:11)
[2019-12-10] MEDS ORDERED: INVE156I IM (10:11)
[2019-12-10] MEDS ORDERED: SENN18TA PO (10:11)
[2019-12-10] MEDS: ACETAMINOPHEN TAB 650MG DOSE (2X325MG) PO PRN (14:02)
[2019-12-10] MEDS: hydrOXYzine 25 MG TAB PO PRN (14:31)
== END 2019-12-10 14:40 | disposition home or self-care (01) | DRG 885 ==
LOC: M PSY 13:00
PROVIDERS: ADMIT Psychiatry & Neurology Addiction Medicine; ATTEND Psychiatry & Neurology Addiction Medicine
DX: F31.9 Bipolar disorder, unspecified (principal); F12.10 Cannabis abuse, uncomplicated; E10.9 Type 1 diabetes mellitus without complications; Z79.4 Long term (current) use of insulin; Z79.899 Other long term (current) drug therapy; Z91.5 Personal history of self-harm; J45.909 Unspecified asthma, uncomplicated; E55.9 Vitamin D deficiency, unspecified

== ENCOUNTER 2020-02-27 13:50 | Emergency (ER) | payer OTHER ==
[~2020-02-27 13:50] MED LIST changes: +INVE156I IM; +PALI1TAB2 PO; +SENN18TA PO
[2020-02-27] MEDS ORDERED: ACETAMINOPHEN 325 MG TAB ONE (17:49)
[2020-02-27] MEDS ORDERED: ACETAMINOPHEN 325 MG TAB As Ordered ONE (17:49)
[2020-04-06 08:13] LABS: APPEARANCE, URINE CLEAR (CLEAR); BACTERIA, URINE AUTO NEGATIVE (NEGATIVE); BILIRUBIN, URINE AUTO NEGATIVE (NEGATIVE); BLOOD, URINE BLOOD 2+ (NEGATIVE); COLOR, URINE YELLOW (YELLOW); GLUCOSE, URINE (UA) AUTO 3+ mg/dL (NEGATIVE); KETONE, URINE AUTO NEGATIVE (NEGATIVE); LEUKOCYTE ESTERASE, URINE AUTO TRACE (NEGATIVE); MUCUS, URINE SMALL (NEGATIVE); NITRITE, URINE AUTO NEGATIVE (NEGATIVE); PROTEIN, URINE AUTO NEGATIVE (NEGATIVE); RBC, URINE AUTO 9 /HPF (0-3); SPECIFIC GRAVITY URINE AUTO 1.026 (1.002-1.035); SQUAMOUS EPITHELIAL CELL UR AU 2 /HPF (0-6); WBC, URINE AUTO 7 /HPF (0-3)
[2020-04-06 10:13] LABS: HEMATOCRIT 40.6 % (36.0-47.0); HEMOGLOBIN 13.4 g/dl (12.0-15.5); MEAN CORPUSCULAR HEMOGLOBIN 29.5 pg (27.0-33.0); MEAN CORPUSCULAR VOLUME 89.2 fl (80.0-96.0); PLATELET COUNT, AUTOMATED 300 10^3/uL (150-450); RED BLOOD COUNT 4.55 10^6/uL (4.00-5.40); WHITE BLOOD COUNT 7.6 10^3/uL (4.0-10.0)
[2020-04-07 21:02] LABS: VENOUS BASE EXCESS -0.5 (-2.0-2.0); VENOUS HCO3 26.9 MEQ/L (23.0-27.0); VENOUS O2 SATURATION 61.7 % (60.0-80.0); VENOUS PARTIAL PRESSURE CO2 55.5 mmHg (38.0-50.0); VENOUS PARTIAL PRESSURE O2 36.8 mmHg (30.0-50.0); VENOUS PH 7.303 UNITS (7.330-7.430); VENOUS STANDARD HCO3 23.2 MEQ/L; VENOUS TOTAL CO2 28.6 MEQ/L (24.0-28.0)
[2020-04-07 21:04] LABS: BLOOD UREA NITROGEN 10 MG/DL (7-18); CALCIUM LEVEL 9.5 MG/DL (8.5-10.1); CARBON DIOXIDE LEVEL 29 MEQ/L (21-32); CHLORIDE LEVEL 108 MEQ/L (98-107); GLOMERULAR FILTRATION RATE > 60.0 (>60); GLUCOSE, FASTING 203 MG/DL (70-100); POTASSIUM SERUM 4.7 MEQ/L (3.5-5.1); SODIUM LEVEL 141 MEQ/L (136-145)
[2020-04-07 21:05] LABS: HCG, SERUM QUALITATIVE NEGATIVE (NEGATIVE)
== END 2020-02-27 18:55 | disposition home or self-care (01) ==
LOC: M ED 13:50
DX: N39.0 Urinary tract infection, site not specified (principal); E10.649 Type 1 diabetes mellitus with hypoglycemia without coma; R51 Headache; Z79.899 Other long term (current) drug therapy; Z79.4 Long term (current) use of insulin

== ENCOUNTER → 2020-03-05 | Outpatient (REF) | payer OTHER ==
[2020-04-20 16:28] LABS: CREATININE, URINE 90.1 MG/DL; MAU/CREAT RATIO 8.8 MCG/MG (0.0-30.0)
== END ==
LOC: M LAB REF 15:26
PROVIDERS: ATTEND Nurse Practitioner Family
DX: E10.40 Type 1 diabetes mellitus with diabetic neuropathy, unspecified (principal)

== ENCOUNTER 2020-06-26 18:30 | Inpatient (IN) | payer OTHER ==
[~2020-06-26] VITALS: Ht 152.4 cm; Wt 53.4 kg
[2020-06-26] MEDS ORDERED: NS 1,000 ML IV ONE ×2 (18:45→19:45)
[2020-06-26] MEDS ORDERED: PRAZ1CAP (19:06)
[2020-06-26] MEDS ORDERED: LEXA1TAB2 (19:06)
[2020-06-26] MEDS ORDERED: ABIL30TA4 (19:06)
--- NOTE | 2020-06-26 19:33 | REPVR ---
PROCEDURE INFORMATION: Exam: XR Chest, 1 View Exam date and time: 06/26/2020 7:01 PM Age: 25 years old Clinical indication: Other: Dka TECHNIQUE: Imaging protocol: XR of the chest Views: 1 view. COMPARISON: [place] PORTABLE CHEST X-RAY 12/05/2019 4:51 PM FINDINGS: Lungs: Degree of lung inflation is normal. No evidence of pulmonary edema. No focal consolidation or parenchymal lung mass. Pleural space: No pleural effusion or pneumothorax. Heart/Mediastinum: Cardiac silhouette appears normal. No adenopathy or hilar mass. Bones/joints: Osseous structures show no concerning abnormality. IMPRESSION: No acute or focal cardiopulmonary process. Electronically signed by: José Lucas On 06/26/2020 19:33:42 PM
[2020-06-26] MEDS ORDERED: INSULIN REGULAR IN 0.9 % NACL 100 UNIT in IV 1 EA IV SCH ×2 (19:36)
[2020-06-26 19:43] LABS: BASO # 0.1 10^3/uL (0.0-0.2); BASO % 0.3 % (0.0-1.0); HEMOGLOBIN 16.3 g/dl (12.0-15.5); LYMPH % 6.6 % (24.0-44.0); MEAN CORPUSCULAR HEMOGLOBIN 29.2 pg (27.0-33.0); MEAN CORPUSCULAR HGB CONC 33.3 g/dl (32.0-36.5); MEAN CORPUSCULAR VOLUME 87.8 fl (80.0-96.0); MONO # 1.2 10^3/uL (0.0-0.8); MONO % 7.7 % (0.0-5.0); NEUTROPHILS # 13.2 10^3/uL (1.5-8.5); NEUTROPHILS % 84.2 % (36.0-66.0); PLATELET COUNT, AUTOMATED 333 10^3/uL (150-450); RED BLOOD COUNT 5.58 10^6/uL (4.00-5.40); WHITE BLOOD COUNT 15.7 10^3/uL (4.0-10.0)
[2020-06-26] MEDS ORDERED: INSULIN IV RATE CHANGE DOCUMENTATION ML/HR XX SCH (19:45)
[2020-06-26 19:57] LABS: HCG, SERUM QUALITATIVE NEGATIVE (NEGATIVE); OSMOLALITY SERUM 318 MOSM/KG (275-295)
[2020-06-26 20:03] LABS: HEMOGLOBIN A1c 11.9 %
[2020-06-26 20:23] LABS: ACETONE/KETONE > 46.00 MG/DL (<2.81); ALT/SGPT 14 U/L (12-78); BILIRUBIN,DIRECT < 0.1 MG/DL (0.0-0.2); BILIRUBIN,TOTAL 0.4 MG/DL (0.2-1.0); ETHYL ALCOHOL (ETHANOL) < 0.003 % (0.000-0.010); LIPASE 73 U/L (73-393); MAGNESIUM LEVEL 2.2 MG/DL (1.8-2.4); TOTAL PROTEIN 8.7 GM/DL (6.4-8.2)
[2020-06-26] MEDS ORDERED: NS 1,000 ML IV SCH (20:26)
[2020-06-26] MEDS ORDERED: PRAZ1CAP PO (20:27)
[2020-06-26] MEDS ORDERED: TRES1INJ2 SC (20:27)
[2020-06-26] MEDS ORDERED: LEXA1TAB2 PO (20:27)
[2020-06-26] MEDS ORDERED: HUMA100I5 SC (20:27)
[2020-06-26] MEDS ORDERED: ABIL30TA4 PO (20:27)
[2020-06-26] MEDS ORDERED: TRUL3TAB PO (20:27)
[2020-06-26] MEDS ORDERED: MOM 30ML SUSPENSION UDC PO PRN (20:30)
[2020-06-26] MEDS ORDERED: MAALOX 30 ML SUSP *UDC PO PRN (20:30)
[2020-06-26] MEDS ORDERED: ACETAMINOPHEN TAB 650MG DOSE (2X325MG) PO PRN (20:30)
[2020-06-26] MEDS: INSULIN REGULAR IN 0.9 % NACL 100 UNIT in IV 1 EA IV SCH ×2 (21:23)
--- NOTE | 2020-06-26 21:59 | HPEPDOC ---
[facility] Medical History & Physical Date of Admission Jun 26, 2020 Date of Service: Jun 26, 2020 Other Provider Prerna Gill MD Attending Physician: NERY HEATH MD History and Physical TIME OF SERVICE 940PM / CC Time 30 min CHIEF COMPLAINT: high sugars HISTORY OF PRESENT ILLNESS: The history was limited because the patient was lethargic. This 25 yr old F came to the hospital w c/o high sugars. She has been feeling unwell with runny nose, cough, abdominal pain and vomiting for a few days. She told that she has been taking her insulin, but didnt' answer all of my questions. ROS: incomplete bc the patient was lethargic and didn't answer all questions PMH/PSH IDDM1 Asthma Bipolar Depression Schizophrenia FMH heart disease, diabetes, mental illness and substance abuse Denies the use of tobacco ALLERGIES: Please see below. HOME MEDICATIONS: Please see below. PHYSICAL EXAMINATION: Vital Signs Date Time Temp Pulse Resp B/P (MAP) Pulse Ox O2 Delivery O2 Flow Rate FiO2 06/26/20 18:44 137/89 (105) 06/26/20 18:45 98.6 156 20 94 Room Air 06/26/20 20:00 2.0 GENERAL APPEARANCE: well nourished / well developed INTEGUMENT: not flushed or jaundice CARDIOVASCULAR: tachycardic / NMRG LUNGS: tachypnec / using acessory muscles / NMRG ABDOMEN: flat / soft & NT with palpation MUSCULOSKELETAL: NCAT EXTREMITIES: EDDIE x 4 NEUROLOGICAL: unable to assess bc pt was lethargic PSYCHIATRIC: lethargic LABORATORY DATA: 06/26/20 18:45 06/26/20 18:45: Immature Granulocyte % (Auto) 1.2, Neutrophils (%) (Auto) 84.2H, Lymphocytes (%) (Auto) 6.6L, Monocytes (%) (Auto) 7.7H, Eosinophils (%) (Auto) 0.0, Basophils (%) (Auto) 0.3, Neutrophils # (Auto) 13.2H, Lymphocytes # (Auto) 1.0L, Monocytes # (Auto) 1.2H, Eosinophils # (Auto) 0.0, Basophils # (Auto) 0.1, Nucleated Red Blood Cells % (auto) 0.2H, Estimated Mean Plasma Glucose 295H, Hemoglobin A1c 11.9, Osmolality 318H, Magnesium Level 2.2, Total Bilirubin 0.4, Direct Bili shea < 0.1, Aspartate Amino Transf (AST/SGOT) 8, Alanine Aminotransferase (ALT/SGPT) 14, Alkaline Phosphatase 144H, Total Protein 8.7H, Albumin 4.0, Albumin/Globulin Ratio 0.9L, Lipase 73, Human Chorionic Gonadotropin, Qual NEGATIVE, Ethyl Alcohol Level < 0.003, B-Hydroxybutyrate > 46.00H 06/26/20 18:46: Lactic Acid Level 1.6 06/26/20 19:13: POC pH (Misc Panel) 7.096*L, POC Base Excess (Misc Panel) -27.0L, POC Saturated Percent O2 (Misc) 97, POC pO2 (Misc Panel) 119.0H, POC pCO2 (Misc Panel) 9.5*L, POC HCO3 (Misc Panel) 2.9L, POC Total CO2 (Misc Panel) < 5.0L 06/26/20 19:29: POC Total CO2 (Misc Panel) 7.0L, POC Glucose (Misc Panel) 482H, POC Sodium (Misc Panel) 130L, POC Potassium (Misc Panel) 5.8H, POC Chloride (Misc Panel) 107, POC Blood Urea Nitrogen (Misc Panel 23, POC Ionized Calcium (Misc Panel) 5.2, POC Creatinine (Misc Panel) 1.1, POC Hematocrit (Misc Panel) 52.0H 06/26/20 19:54: Bedside Glucose (Misc Panel) 488H 06/26/20 20:25: Coronavirus (COVID-19)(PCR) NEGATIVE 06/26/20 20:47: Bedside Glucose (Misc Panel) 420H IMAGING: Chest "IMPRESSION: No acute or focal cardiopulmonary process." MICROBIOLOGY: 06/26/20 Blood Culture, Received Pending 06/26/20 Blood Culture, Received Pending ASSESSMENT: is a 25 yr old w a hx of DM1, Asthma, Bipolar Disorder and Depression who presented w c/o malise, cough, runny nose, abd pain and vomiting and will be admitted for SIRS & DKA. PLAN: 1. SIRS vs Sepsis of unclear source SIRS criteria: HR >90 / WBC >12 / RR > 20 QSofa score 2 points bc of AMS and tachypnea = high risk The chest xray, COVID 19 & Lactic acid unrevealing Plan: admit to ICU / telemetry / IVF /f/u blood cx, & UA / Acetaminophen PRN for fever / target MAP at of least 65 to 70 / f/u Is and Os with target UOP of at least 0.5 ml/kg/H / target serum glucose 140-180 while acutely ill / 2. DKA She has a gluc >250 + pH <7.30 + bicarbonate <18 + urine ketones or BHB + calculated AG >12 Possible triggers: noncompliance, infection, second generation antipsychotics ? DKA MPM Score to predict risk of in hospital mortality = 0 points Plan: admit to ICU /NPO / Insulin drip per protocol/ NS @ 250ml/H for now / f/u accuchecks Q1H, BMP Q4H, venous PH Q4H, osmol Q4H, Mag Q4H, phosp Q4H/ f/u UDS / DM education when acute issues have resolved 3. Nausea, vomiting & abdominal pain Lipase wnl Plan: zofran PRN 4. Asthma Plan: albuterol PRN / per VALENCIA 2019 guidelines will add inhaled corticosteroids as a part of her maintenance regimen & write scripts for these meds 5. Bipolar Disorder and depression Plan:escitalopram / resume aripiprazole, for now, if the work up for infection is negative and the patient can confirm that she has been compliant with her meds when she is more alert, they day time team may consider consulting Psych to switch to another antipsychotic bc aripiprazole can cause DKA DVT px w lovenox Dispo: anticipate at least 2 midnight's stay Home Medications Scheduled Aripiprazole (Abilify) 30 Mg Tablet, 15 MG PO BID Escitalopram Oxalate (Lexapro) 20 Mg Tablet, 20 MG PO DAILY Fluticasone Propionate (Flovent Hfa) 110 Mcg/Act Aer.w.adap, 2 PUFF INH BID Insulin Degludec (Tresiba Flextouch U-100) 100 Unit/1 Ml Insuln.pen, Unknown Dose SC DAILY Insulin Lispro (Humalog Kwikpen U-100) 100 Unit/1 Ml Insuln.pen, 1 DOSE SC AC PER SLIDING SCALE Prazosin Hcl (Prazosin HCl) 1 Mg Capsule, 1 MG PO QHS Allergies Coded Allergies: No Known Allergies (Unverified , 10/01/19) A-FIB/CHADSVASC A-FIB History Current/History of A-Fib/PAF?: No Current PO Anticoag Therapy: No NERY HEATH MD Jun 26, 2020 21:59
[2020-06-26] MEDS ORDERED: GLUCAGON INJ 1MG VIAL SC PRN (22:00)
[2020-06-26] MEDS ORDERED: GLUCOSE 4GM CHEW TABLET PO PRN (22:00)
[2020-06-26] MEDS ORDERED: DEXTROSE 50% 50 ML SYRINGE IV PRN (22:00)
[2020-06-26 22:09] VITALS: BP 132/90
[2020-06-26] MEDS ORDERED: FLUT11IN INH (22:22)
[2020-06-26] MEDS: INSULIN IV RATE CHANGE DOCUMENTATION ML/HR XX SCH ×2 (22:28→23:20)
[2020-06-26] MEDS ORDERED: ALBUTEROL 90 MCG/ACT 8GM HFA INHALER INH PRN (22:30)
[2020-06-26 23:37] LABS: AMPHETAMINES LEVEL URINE NEGATIVE (NEGATIVE); BARBITURATES URINE NEGATIVE (NEGATIVE); BENZODIAZEPINES URINE NEGATIVE (NEGATIVE); CANNABINOIDS URINE NEGATIVE (NEGATIVE); COCAINE METABOLITE URINE NEGATIVE (NEGATIVE); METHADONE URINE NEGATIVE (NEGATIVE); OPIATES URINE NEGATIVE (NEGATIVE); PHENCYCLIDINE URINE NEGATIVE (NEGATIVE)
[2020-06-26] MEDS ORDERED: D5W/0.45% SODIUM CHLORIDE 1,000 ML IV SCH (23:45)
[2020-06-27] VITALS (7 sets, daily range): BP systolic 124–160; BP diastolic 74–94
[2020-06-27 00:56] LABS: VENOUS HCO3 6.4 MEQ/L (23.0-27.0); VENOUS O2 SATURATION 99.2 % (60.0-80.0); VENOUS PARTIAL PRESSURE CO2 17.9 mmHg (38.0-50.0); VENOUS PH 7.168 UNITS (7.330-7.430); VENOUS STANDARD HCO3 10.1 MEQ/L; VENOUS TOTAL CO2 6.9 MEQ/L (24.0-28.0)
[2020-06-27] MEDS ORDERED: VENTAER INH (01:14)
[2020-06-27 01:22] LABS: BLOOD UREA NITROGEN 17 MG/DL (7-18); CALCIUM LEVEL 8.2 MG/DL (8.5-10.1); CARBON DIOXIDE LEVEL 9 MEQ/L (21-32); CHLORIDE LEVEL 114 MEQ/L (98-107); CREATININE FOR GFR 1.22 MG/DL (0.55-1.30); GLOMERULAR FILTRATION RATE > 60.0 (>60); GLUCOSE, FASTING 158 MG/DL (70-100); PHOSPHORUS LEVEL 1.7 MG/DL (2.5-4.9); POTASSIUM SERUM 3.6 MEQ/L (3.5-5.1); SODIUM LEVEL 140 MEQ/L (136-145)
[2020-06-27 01:26] LABS: OSMOLALITY SERUM 300 MOSM/KG (275-295)
[2020-06-27] MEDS: ARIPiprazole 15 MG TAB (AbiLIFY) PO SCH ×3 (03:07→21:00)
[2020-06-27] MEDS: PRAZOSIN 1 MG CAP PO SCH ×2 (03:08→21:01)
[2020-06-27] MEDS ORDERED: POTASSIUM PHOSPHATE INJ 15 MMOL in D5W 250 ML IV ONE (03:45)
[2020-06-27] MEDS: INSULIN IV RATE CHANGE DOCUMENTATION ML/HR XX SCH ×7 (04:15→12:59)
[2020-06-27 04:42] LABS: VENOUS BASE EXCESS -15.7 (-2.0-2.0); VENOUS HCO3 10.5 MEQ/L (23.0-27.0); VENOUS O2 SATURATION 93.3 % (60.0-80.0); VENOUS PARTIAL PRESSURE O2 66.5 mmHg (30.0-50.0); VENOUS PH 7.209 UNITS (7.330-7.430); VENOUS STANDARD HCO3 12.7 MEQ/L; VENOUS TOTAL CO2 11.4 MEQ/L (24.0-28.0)
[2020-06-27 05:23] LABS: BLOOD UREA NITROGEN 10 MG/DL (7-18); CALCIUM LEVEL 8.2 MG/DL (8.5-10.1); CARBON DIOXIDE LEVEL 12 MEQ/L (21-32); CHLORIDE LEVEL 112 MEQ/L (98-107); CREATININE FOR GFR 1.19 MG/DL (0.55-1.30); GLOMERULAR FILTRATION RATE > 60.0 (>60); GLUCOSE, FASTING 149 MG/DL (70-100); PHOSPHORUS LEVEL 1.8 MG/DL (2.5-4.9); POTASSIUM SERUM 3.6 MEQ/L (3.5-5.1); SODIUM LEVEL 139 MEQ/L (136-145)
[2020-06-27 05:31] LABS: OSMOLALITY SERUM 298 MOSM/KG (275-295)
[2020-06-27] MEDS: KCL 40MEQ IN D5/0.45NS 1000ML 1,000 ML IV SCH ×2 (06:34→12:58)
--- NOTE | 2020-06-27 06:35 | ECGEPIP ---
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
[2020-06-27] MEDS: INSULIN REGULAR IN 0.9 % NACL 100 UNIT in IV 1 EA IV SCH ×6 (08:12→10:51)
[2020-06-27 08:30] LABS: VENOUS BASE EXCESS -13.9 (-2.0-2.0); VENOUS HCO3 12.1 MEQ/L (23.0-27.0); VENOUS O2 SATURATION 92.4 % (60.0-80.0); VENOUS PARTIAL PRESSURE CO2 29.1 mmHg (38.0-50.0); VENOUS PARTIAL PRESSURE O2 61.7 mmHg (30.0-50.0); VENOUS PH 7.236 UNITS (7.330-7.430); VENOUS STANDARD HCO3 13.9 MEQ/L
[2020-06-27] MEDS: ONDANSETRON 4MG/2ML VIAL IV PRN (08:38)
[2020-06-27] MEDS: LISINOPRIL *2.5 MG* TAB PO SCH (08:38)
[2020-06-27] MEDS: ENOXAPARIN 40MG/0.4ML SYRINGE (J1650 PER 10MG) SC SCH (08:39)
[2020-06-27] MEDS: ESCITALOPRAM OXALATE 10 MG TAB (LEXAPRO) PO SCH (08:39)
[2020-06-27 08:57] LABS: BLOOD UREA NITROGEN 10 MG/DL (7-18); CALCIUM LEVEL 8.2 MG/DL (8.5-10.1); CARBON DIOXIDE LEVEL 14 MEQ/L (21-32); CHLORIDE LEVEL 112 MEQ/L (98-107); CREATININE FOR GFR 1.12 MG/DL (0.55-1.30); GLOMERULAR FILTRATION RATE > 60.0 (>60); GLUCOSE, FASTING 164 MG/DL (70-100); POTASSIUM SERUM 3.6 MEQ/L (3.5-5.1); SODIUM LEVEL 138 MEQ/L (136-145)
[2020-06-27 09:03] LABS: OSMOLALITY SERUM 294 MOSM/KG (275-295)
[2020-06-27 12:10] LABS: VENOUS BASE EXCESS -11.3 (-2.0-2.0); VENOUS HCO3 13.3 MEQ/L (23.0-27.0); VENOUS O2 SATURATION 99.3 % (60.0-80.0); VENOUS PARTIAL PRESSURE CO2 26.9 mmHg (38.0-50.0); VENOUS PARTIAL PRESSURE O2 185.2 mmHg (30.0-50.0); VENOUS PH 7.311 UNITS (7.330-7.430); VENOUS STANDARD HCO3 15.7 MEQ/L; VENOUS TOTAL CO2 14.1 MEQ/L (24.0-28.0)
--- NOTE | 2020-06-27 12:38 | IPNPDOC ---
Text Note Date of Service The patient was seen on 06/27/20. NOTE SUBJECTIVE: -continues to be lethargic but is arousable -No specific pain complaints -Has some N/V this AM. Much improved since zofran. No diarrhea, chest pain, abdominal pain, dysuria or joanne fever, sweats or chills OBJECTIVE: VITALS: HDS, Tmax 100.6, HR 125, on 2L saturation 96% GENERAL APPEARANCE: Lethargic, NAD SKIN: no rashes or lesions CARDIOVASCULAR: Regular rhythm, tachycardic, no m/r/g LUNGS: CTAB, tachypneic, on 2L NC ABDOMEN: flat, soft, normoactive sounds, NTND EXTREMITIES: WWP, no LE edema NEUROLOGICAL: lethargic, however moving all extremities LABS: glucose now 142 this AM Anion gap 15 bicarb 12 na 139 K 3.6 Cr 1.19 WBC at admission 15.7 Hgb at admission 16.3 phos 1.8 mag 1.8 IMAGING: Chest Xray: "IMPRESSION: No acute or focal cardiopulmonary process." MICROBIOLOGY: 06/26/20 Blood Culture, Received, Pending 06/26/20 Blood Culture, Received, Pending ASSESSMENT: is a 25 yr old w a hx of DM1, Asthma, Bipolar Disorder and Depression who presented w c/o malise, cough, runny nose, abd pain and vomiting and will be admitted for SIRS & DKA. PLAN: 1. SIRS vs Sepsis of unclear source SIRS criteria: HR >90 / WBC >12 / RR > 20 that persists and low grade temp QSofa score 2 points bc of AMS and tachypnea = high risk The chest xray, COVID 19 & Lactic acid unrevealing -Possibly reactive to DKA and and dehydration --> continue IVF -f/u blood cx -UA was unrevealing from an infection standpoint, revealing glucosuria and ketonuria -Acetaminophen PRN for fever -target MAP at of least 65 to 70 -strict Is and Os with target UOP of at least 0.5 ml/kg/H -target serum glucose 140-180 while acutely ill 2. DKA: gluc >250 + pH <7.30 + bicarbonate <18 + urine ketones or BHB + calculated AG >12. In the setting of non-compliance, reporting that she does not take her insulin. Possible triggers: noncompliance, infection, second generation antipsychotics? -Gap just closed, could not corroborate home dosing of long acting insulin to bridge her but aware that she was discharged on 28u in 04/2020, so will give 15u QD and adjust from there. -continue NPO for now until dinner time while bridging her -Insulin drip per protocol -continue NS with K for now -f/u accuchecks Q2H. Soon to be AC/HS with SSI by dinner time if noon labs are stable -f/u noon BMP -daily BMP -DM education when acute issues have resolved 3. Nausea, vomiting & abdominal pain: likely 2/2 DKA, much improved -Lipase wnl -zofran PRN 4. Asthma -albuterol PRN 5. Bipolar Disorder and depression -continue home escitalopram, aripiprazole, for now, if the work up for infection is negative and the patient can confirm that she has been compliant with her meds when she is more alert, may consider consulting Psych to switch to another antipsychotic as aripiprazole can precipitate DKA DVT ppx: lovenox Dispo: anticipate at least 2 midnight's stay. ICU for now, after bridge, may downgrade to medsurg VS,Fishbone, I+O VS, Fishbone, I+O Laboratory Tests 06/26/20 18:45 06/27/20 00:50 06/27/20 04:34 Vital Signs Date Time Temp Pulse Resp B/P (MAP) Pulse Ox O2 Delivery O2 Flow Rate FiO2 06/27/20 04:12 2.0 06/27/20 04:10 100.0 125 22 136/86 (103) 98 Nasal Cannula I&O- Last 24 Hours up to 6 AM 06/27/20 05:59 Intake Total 3045 ml Output Total 1025 ml Balance 2019 ml LIONEL MONTALVO MD Jun 27, 2020 07:45
[2020-06-27 12:40] LABS: BLOOD UREA NITROGEN 10 MG/DL (7-18); CALCIUM LEVEL 8.2 MG/DL (8.5-10.1); CARBON DIOXIDE LEVEL 14 MEQ/L (21-32); CHLORIDE LEVEL 112 MEQ/L (98-107); CREATININE FOR GFR 0.98 MG/DL (0.55-1.30); GLOMERULAR FILTRATION RATE > 60.0 (>60); GLUCOSE, FASTING 159 MG/DL (70-100); PHOSPHORUS LEVEL 1.4 MG/DL (2.5-4.9); POTASSIUM SERUM 3.6 MEQ/L (3.5-5.1); SODIUM LEVEL 139 MEQ/L (136-145)
[2020-06-27] MEDS: LEVEMIR (INSULIN DETEMIR) 1 UNITS/0.01ML SC SCH (12:53)
[2020-06-27 12:57] LABS: OSMOLALITY SERUM 291 MOSM/KG (275-295)
[2020-06-27] MEDS: FLUTICASONE HFA 110 MCG 12 GM INHALER (FLOVENT) INH SCH ×2 (14:41→20:48)
[2020-06-27] MEDS: HumaLOG INSULIN (NovoLOG) PER UNIT SC SCH ×2 (17:06→20:54)
[2020-06-28 03:18] VITALS: BP 129/84
[2020-06-28] MEDS ORDERED: HumaLOG INSULIN (NovoLOG) PER UNIT SC ONE (03:30)
[2020-06-28] MEDS: NS 1,000 ML IV SCH ×3 (04:14→20:48)
[2020-06-28 06:00] VITALS: BP 128/82
[2020-06-28 06:26] LABS: MEAN CORPUSCULAR HEMOGLOBIN 29.6 pg (27.0-33.0); MEAN CORPUSCULAR VOLUME 84.6 fl (80.0-96.0); PLATELET COUNT, AUTOMATED 226 10^3/uL (150-450); RED BLOOD COUNT 4.49 10^6/uL (4.00-5.40); WHITE BLOOD COUNT 6.6 10^3/uL (4.0-10.0)
[2020-06-28 06:35] LABS: HEMOGLOBIN 13.3 g/dl (12.0-15.5)
[2020-06-28 06:54] LABS: BLOOD UREA NITROGEN 7 MG/DL (7-18); CALCIUM LEVEL 8.4 MG/DL (8.5-10.1); CARBON DIOXIDE LEVEL 15 MEQ/L (21-32); CHLORIDE LEVEL 106 MEQ/L (98-107); CREATININE FOR GFR 0.98 MG/DL (0.55-1.30); GLOMERULAR FILTRATION RATE > 60.0 (>60); GLUCOSE, FASTING 297 MG/DL (70-100); MAGNESIUM LEVEL 1.9 MG/DL (1.8-2.4); PHOSPHORUS LEVEL 1.3 MG/DL (2.5-4.9); SODIUM LEVEL 136 MEQ/L (136-145)
[2020-06-28] MEDS: FLUTICASONE HFA 110 MCG 12 GM INHALER (FLOVENT) INH SCH ×2 (07:31→19:49)
[2020-06-28] MEDS: ARIPiprazole 15 MG TAB (AbiLIFY) PO SCH ×2 (08:08→20:48)
[2020-06-28] MEDS: ESCITALOPRAM OXALATE 10 MG TAB (LEXAPRO) PO SCH (08:08)
[2020-06-28] MEDS: LISINOPRIL *2.5 MG* TAB PO SCH (08:08)
[2020-06-28] MEDS: LEVEMIR (INSULIN DETEMIR) 1 UNITS/0.01ML SC SCH (08:09)
[2020-06-28] MEDS: HumaLOG INSULIN (NovoLOG) PER UNIT SC SCH ×4 (08:09→21:00)
[2020-06-28] MEDS: ENOXAPARIN 40MG/0.4ML SYRINGE (J1650 PER 10MG) SC SCH (08:10)
[2020-06-28] MEDS ORDERED: POTASSIUM CHLORIDE 10 MEQ SR TABLET PO ONE ×2 (10:00→12:00)
[2020-06-28] MEDS ORDERED: NEUTRA-PHOS 1.5 GM PACKET PO ONE (11:00)
[2020-06-28] MEDS: ONDANSETRON 4MG/2ML VIAL IV PRN ×2 (11:11→20:47)
--- NOTE | 2020-06-28 13:58 | IPNPDOC ---
Text Note Date of Service The patient was seen on 06/28/20. NOTE SUBJECTIVE: -No specific pain complaints -Had episodes of tachycardia to 150s this AM, asymptomatic OBJECTIVE: VITALS: HDS, afebrile GENERAL APPEARANCE: Lethargic, NAD SKIN: no rashes or lesions CARDIOVASCULAR: Regular rhythm, tachycardic, no m/r/g LUNGS: CTAB, on room air ABDOMEN: flat, soft, normoactive sounds, NTND EXTREMITIES: WWP, no LE edema NEUROLOGICAL: lethargic, however moving all extremities LABS: reviewed. WBC 6.6 hgb 13.3 platelets 226 na 136 K 3 (repleted) Cr 0.98 phos 1.3 (repleted) Mag 1.9 IMAGING: Chest Xray: "IMPRESSION: No acute or focal cardiopulmonary process." MICROBIOLOGY: 06/26/20 Blood Culture, Received, Pending 06/26/20 Blood Culture, Received, Pending ASSESSMENT: is a 25 yr old w a hx of DM1, Asthma, Bipolar Disorder and Depression who presented w c/o malise, cough, runny nose, abd pain and vomiting and admitted DKA. PLAN: 1. +SIRS in the setting of DKA and dehydration: resolved -reactive to DKA and and dehydration, s/p hydration, negative infectious workup and resolution of leukocytosis -f/u blood cx -UA was unrevealing from an infection standpoint, revealing glucosuria and ketonuria -Acetaminophen PRN for fever 2. DKA: gluc >250 + pH <7.30 + bicarbonate <18 + urine ketones or BHB + calculated AG >12. In the setting of non-compliance, reporting that she does not take her insulin. -consistent carb diet -restore home 28u of levemir daily -AC/HS with SSI -hypoglycemia protocol -DM education -replete lytes 3. Nausea, vomiting & abdominal pain: likely 2/2 DKA, much improved -Lipase wnl -zofran PRN 4. Asthma -albuterol PRN 5. Bipolar Disorder and depression -continue home escitalopram, aripiprazole DVT ppx: lovenox Dispo: anticipate dc home tomorrow. VS,Fishbone, I+O VS, Fishbone, I+O Laboratory Tests 06/27/20 12:02 06/28/20 05:25 Vital Signs Date Time Temp Pulse Resp B/P (MAP) Pulse Ox O2 Delivery O2 Flow Rate FiO2 06/28/20 08:08 128/82 06/28/20 06:00 97.3 124 16 100 Room Air 06/27/20 12:00 2.0 I&O- Last 24 Hours up to 6 AM 06/28/20 06:00 Intake Total 90069 ml Output Total 1455 ml Balance 8640 ml LIONEL MONTALVO MD Jun 28, 2020 09:53
[2020-06-28 14:00] VITALS: BP 131/90
[2020-06-28] MEDS: PRAZOSIN 1 MG CAP PO SCH (20:48)
[2020-06-28 22:00] VITALS: BP 136/95
[2020-06-28] MEDS ORDERED: METOCLOPRAMIDE INJ 10MG/2ML VIAL (J2765 PER 1) IV PRN (23:30)
[2020-06-29 06:00] VITALS: BP 121/79
[2020-06-29 06:08] LABS: HEMATOCRIT 32.4 % (36.0-47.0); MEAN CORPUSCULAR HEMOGLOBIN 29.4 pg (27.0-33.0); MEAN CORPUSCULAR HGB CONC 34.9 g/dl (32.0-36.5); MEAN CORPUSCULAR VOLUME 84.4 fl (80.0-96.0); PLATELET COUNT, AUTOMATED 190 10^3/uL (150-450); RED BLOOD COUNT 3.84 10^6/uL (4.00-5.40); WHITE BLOOD COUNT 4.8 10^3/uL (4.0-10.0)
[2020-06-29 06:26] LABS: HEMOGLOBIN 11.3 g/dl (12.0-15.5)
[2020-06-29 06:29] LABS: BLOOD UREA NITROGEN 4 MG/DL (7-18); CALCIUM LEVEL 8.1 MG/DL (8.5-10.1); CARBON DIOXIDE LEVEL 19 MEQ/L (21-32); CHLORIDE LEVEL 109 MEQ/L (98-107); GLOMERULAR FILTRATION RATE > 60.0 (>60); GLUCOSE, FASTING 233 MG/DL (70-100); POTASSIUM SERUM 3.1 MEQ/L (3.5-5.1); SODIUM LEVEL 138 MEQ/L (136-145)
[2020-06-29] MEDS: FLUTICASONE HFA 110 MCG 12 GM INHALER (FLOVENT) INH SCH ×2 (07:13→19:41)
[2020-06-29] MEDS ORDERED: LEVEMIR (INSULIN DETEMIR) 1 UNITS/0.01ML SC SCH (09:00)
[2020-06-29] MEDS ORDERED: POTASSIUM CHLORIDE 10 MEQ SR TABLET PO ONE (09:00)
[2020-06-29] MEDS: ENOXAPARIN 40MG/0.4ML SYRINGE (J1650 PER 10MG) SC SCH (09:19)
[2020-06-29] MEDS: HumaLOG INSULIN (NovoLOG) PER UNIT SC SCH ×4 (09:21→21:00)
[2020-06-29] MEDS: ARIPiprazole 15 MG TAB (AbiLIFY) PO SCH ×2 (09:22→20:28)
[2020-06-29] MEDS: LISINOPRIL *2.5 MG* TAB PO SCH (09:23)
[2020-06-29] MEDS: ESCITALOPRAM OXALATE 10 MG TAB (LEXAPRO) PO SCH (09:23)
[2020-06-29] MEDS: NS 1,000 ML IV SCH ×2 (09:24→20:27)
[2020-06-29] MEDS ORDERED: NEUTRA-PHOS 1.5 GM PACKET PO ONE (10:00)
[2020-06-29] MEDS: METOCLOPRAMIDE INJ 10MG/2ML VIAL (J2765 PER 1) IV PRN ×2 (10:20→16:27)
--- NOTE | 2020-06-29 10:33 | IPNPDOC ---
Text Note Date of Service The patient was seen on 06/29/20. NOTE SUBJECTIVE: -No specific pain complaints -Has episodic sinus tachycardia to 150s with activity, asymptomatic -nauseous this AM OBJECTIVE: VITALS: HDS, afebrile GENERAL APPEARANCE: Lethargic, NAD SKIN: no rashes or lesions CARDIOVASCULAR: Regular rhythm, tachycardic, no m/r/g LUNGS: CTAB, on room air ABDOMEN: flat, soft, normoactive sounds, NTND EXTREMITIES: WWP, no LE edema NEUROLOGICAL: lethargic, however moving all extremities LABS: reviewed. WBC 4.8 hgb 11.3 platelets 190 na 138 K 3.1 (repleted) Cr 0.6 IMAGING: Chest Xray: "IMPRESSION: No acute or focal cardiopulmonary process." MICROBIOLOGY: 06/26/20 Blood Culture, Received, Pending 06/26/20 Blood Culture, Received, Pending ASSESSMENT: is a 25 yr old w a hx of DM1, Asthma, Bipolar Disorder and Depression who presented w c/o malise, cough, runny nose, abd pain and vomiting and admitted for DKA. PLAN: 1. +SIRS in the setting of DKA and dehydration: resolved -reactive to DKA and and dehydration, s/p hydration, negative infectious workup and resolution of leukocytosis -f/u blood cx -UA was unrevealing from an infection standpoint, revealing glucosuria and ketonuria -Acetaminophen PRN for fever 2. DKA: gluc >250 + pH <7.30 + bicarbonate <18 + urine ketones or BHB + calculated AG >12. In the setting of non-compliance, reporting that she does not take her insulin. -consistent carb diet -continue 28u of levemir daily -AC/HS with SSI -hypoglycemia protocol -DM education -replete lytes 3. Nausea, vomiting & abdominal pain: likely 2/2 DKA, much improved -Lipase wnl -reglan IV 10mg Q6H PRN 4. Asthma -albuterol PRN 5. Bipolar Disorder and depression -continue home escitalopram, aripiprazole DVT ppx: lovenox Dispo: anticipate dc home tomorrow. Still having significant tachycardia and not tolerating much PO due to nausea, so continuing to hydrate her. VS,Fishbone, I+O VS, Fishbone, I+O Laboratory Tests 06/29/20 05:43 Vital Signs Date Time Temp Pulse Resp B/P (MAP) Pulse Ox O2 Delivery O2 Flow Rate FiO2 06/29/20 06:00 99.2 104 16 121/79 (93) 97 Room Air 06/27/20 12:00 2.0 I&O- Last 24 Hours up to 6 AM 06/29/20 06:00 Intake Total 4420 ml Output Total 1800 ml Balance 2620 ml LIONEL MONTALVO MD Jun 29, 2020 07:52
[2020-06-29 14:00] VITALS: BP 131/92
[2020-06-29] MEDS: PRAZOSIN 1 MG CAP PO SCH (20:28)
[2020-06-29 22:00] VITALS: BP 117/79
[2020-06-30] MEDS: NS 1,000 ML IV SCH (05:36)
[2020-06-30 06:00] VITALS: BP 118/80
[2020-06-30 07:04] LABS: HEMATOCRIT 31.7 % (36.0-47.0); HEMOGLOBIN 10.9 g/dl (12.0-15.5); MEAN CORPUSCULAR HEMOGLOBIN 28.8 pg (27.0-33.0); MEAN CORPUSCULAR HGB CONC 34.4 g/dl (32.0-36.5); MEAN CORPUSCULAR VOLUME 83.6 fl (80.0-96.0); PLATELET COUNT, AUTOMATED 195 10^3/uL (150-450); RED BLOOD COUNT 3.79 10^6/uL (4.00-5.40); WHITE BLOOD COUNT 5.2 10^3/uL (4.0-10.0)
--- NOTE | 2020-06-30 07:22 | ECGEPIP ---
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
[2020-06-30] MEDS: HumaLOG INSULIN (NovoLOG) PER UNIT SC SCH ×4 (07:30→21:00)
[2020-06-30 07:35] LABS: BLOOD UREA NITROGEN 3 MG/DL (7-18); CALCIUM LEVEL 8.2 MG/DL (8.5-10.1); CARBON DIOXIDE LEVEL 25 MEQ/L (21-32); CHLORIDE LEVEL 108 MEQ/L (98-107); CREATININE FOR GFR 0.43 MG/DL (0.55-1.30); GLOMERULAR FILTRATION RATE > 60.0 (>60); GLUCOSE, FASTING 112 MG/DL (70-100); MAGNESIUM LEVEL 1.8 MG/DL (1.8-2.4); PHOSPHORUS LEVEL 2.1 MG/DL (2.5-4.9); POTASSIUM SERUM 2.7 MEQ/L (3.5-5.1); SODIUM LEVEL 140 MEQ/L (136-145)
[2020-06-30] MEDS: FLUTICASONE HFA 110 MCG 12 GM INHALER (FLOVENT) INH SCH ×2 (07:52→19:37)
[2020-06-30] MEDS ORDERED: POTASSIUM CHLORIDE 10 MEQ SR TABLET PO ONE ×2 (08:45→10:00)
[2020-06-30] MEDS: ESCITALOPRAM OXALATE 10 MG TAB (LEXAPRO) PO SCH (09:30)
[2020-06-30] MEDS: ARIPiprazole 15 MG TAB (AbiLIFY) PO SCH ×2 (09:30→21:18)
[2020-06-30] MEDS: KCL 10MEQ/100ML SWI (KRUN) 10 MEQ in IV 1 EA IV SCH ×4 (09:30→14:04)
[2020-06-30] MEDS: ENOXAPARIN 40MG/0.4ML SYRINGE (J1650 PER 10MG) SC SCH (09:30)
[2020-06-30] MEDS: LISINOPRIL *2.5 MG* TAB PO SCH (09:32)
[2020-06-30] MEDS: METOCLOPRAMIDE INJ 10MG/2ML VIAL (J2765 PER 1) IV PRN (11:15)
[2020-06-30] MEDS: LEVEMIR (INSULIN DETEMIR) 1 UNITS/0.01ML SC SCH (11:16)
--- NOTE | 2020-06-30 12:51 | IPNPDOC ---
Text Note Date of Service The patient was seen on 06/30/20. NOTE SUBJECTIVE: -Nausea, but nursing reporting that she is refusing antiemetics. We discussed it and she said she would take it. OBJECTIVE: VITALS: HDS, afebrile GENERAL APPEARANCE: Lethargic, NAD SKIN: no rashes or lesions CARDIOVASCULAR: Regular rhythm, tachycardic, no m/r/g LUNGS: CTAB, on room air ABDOMEN: flat, soft, normoactive sounds, NTND EXTREMITIES: WWP, no LE edema NEUROLOGICAL: lethargic, however moving all extremities LABS: reviewed. WBC 4.8 hgb 11.3 platelets 190 na 138 K 2.8 (repleted with 80meq total) Cr 0.6 IMAGING: Chest Xray: "IMPRESSION: No acute or focal cardiopulmonary process." MICROBIOLOGY: 06/26/20 Blood Culture, Received, Pending 06/26/20 Blood Culture, Received, Pending ASSESSMENT: is a 25 yr old w a hx of DM1, Asthma, Bipolar Disorder and Depression who presented w c/o malise, cough, runny nose, abd pain and vomiting and admitted for DKA. PLAN: 1. +SIRS in the setting of DKA and dehydration: resolved -reactive to DKA and and dehydration, s/p hydration, negative infectious workup and resolution of leukocytosis -f/u blood cx -UA was unrevealing from an infection standpoint, revealing glucosuria and ketonuria -Acetaminophen PRN for fever 2. DKA: gluc >250 + pH <7.30 + bicarbonate <18 + urine ketones or BHB + ca lculated AG >12. In the setting of non-compliance, reporting that she does not take her insulin. -consistent carb diet -lower 28u of levemir daily to 14u given poor PO -AC/HS with SSI -hypoglycemia protocol -DM education -replete lytes 3. Nausea, vomiting & abdominal pain: likely 2/2 DKA, much improved -Lipase wnl -reglan IV 10mg Q6H PRN 4. Asthma -albuterol PRN 5. Bipolar Disorder and depression -continue home escitalopram, aripiprazole DVT ppx: lovenox Dispo: anticipate dc home tomorrow, not taking much PO, refusing reglan, not sure if there is a behavioral component, also not taking her lytes repletions. Will have discussion with her, with anticipation for home discharge tomorrow. VS,Nik, I+O VS, Darrellbone, I+O Laboratory Tests 06/30/20 06:41 Vital Signs Date Time Temp Pulse Resp B/P (MAP) Pulse Ox O2 Delivery O2 Flow Rate FiO2 06/30/20 06:00 98.9 76 18 118/80 (93) 99 Room Air 06/27/20 12:00 2.0 I&O- Last 24 Hours up to 6 AM 06/30/20 06:00 Intake Total 3530 ml Output Total 1425 ml Balance 2105 ml LIONEL MONTALVO MD Jun 30, 2020 08:51
[2020-06-30 13:48] LABS: BLOOD UREA NITROGEN 3 MG/DL (7-18); CALCIUM LEVEL 8.5 MG/DL (8.5-10.1); CARBON DIOXIDE LEVEL 24 MEQ/L (21-32); CHLORIDE LEVEL 106 MEQ/L (98-107); CREATININE FOR GFR 0.61 MG/DL (0.55-1.30); GLOMERULAR FILTRATION RATE > 60.0 (>60); GLUCOSE, FASTING 244 MG/DL (70-100); POTASSIUM SERUM 3.5 MEQ/L (3.5-5.1); SODIUM LEVEL 137 MEQ/L (136-145)
[2020-06-30 14:00] VITALS: BP 129/74
[2020-06-30] MEDS: PRAZOSIN 1 MG CAP PO SCH (21:19)
[2020-06-30 22:00] VITALS: BP 131/91
[2020-07-01 06:00] VITALS: BP 102/59
[2020-07-01 07:13] LABS: HEMATOCRIT 31.4 % (36.0-47.0); HEMOGLOBIN 10.8 g/dl (12.0-15.5); MEAN CORPUSCULAR HEMOGLOBIN 29.2 pg (27.0-33.0); MEAN CORPUSCULAR HGB CONC 34.4 g/dl (32.0-36.5); MEAN CORPUSCULAR VOLUME 84.9 fl (80.0-96.0); PLATELET COUNT, AUTOMATED 203 10^3/uL (150-450); WHITE BLOOD COUNT 5.1 10^3/uL (4.0-10.0)
[2020-07-01 07:33] LABS: BLOOD UREA NITROGEN 4 MG/DL (7-18); CALCIUM LEVEL 8.8 MG/DL (8.5-10.1); CARBON DIOXIDE LEVEL 27 MEQ/L (21-32); CHLORIDE LEVEL 104 MEQ/L (98-107); GLOMERULAR FILTRATION RATE > 60.0 (>60); GLUCOSE, FASTING 235 MG/DL (70-100); MAGNESIUM LEVEL 1.8 MG/DL (1.8-2.4); PHOSPHORUS LEVEL 2.4 MG/DL (2.5-4.9); POTASSIUM SERUM 3.6 MEQ/L (3.5-5.1); SODIUM LEVEL 137 MEQ/L (136-145)
[2020-07-01] MEDS: FLUTICASONE HFA 110 MCG 12 GM INHALER (FLOVENT) INH SCH (07:38)
[2020-07-01 08:19] VITALS: BP 118/89
[2020-07-01] MEDS: ARIPiprazole 15 MG TAB (AbiLIFY) PO SCH (08:19)
[2020-07-01] MEDS: LISINOPRIL *2.5 MG* TAB PO SCH (08:19)
[2020-07-01] MEDS: ENOXAPARIN 40MG/0.4ML SYRINGE (J1650 PER 10MG) SC SCH (08:19)
[2020-07-01] MEDS: ESCITALOPRAM OXALATE 10 MG TAB (LEXAPRO) PO SCH (08:20)
[2020-07-01] MEDS: LEVEMIR (INSULIN DETEMIR) 1 UNITS/0.01ML SC SCH (08:20)
[2020-07-01] MEDS: HumaLOG INSULIN (NovoLOG) PER UNIT SC SCH ×2 (08:21→12:11)
[2020-07-01] MEDS ORDERED: TRES1INJ2 SC (08:57)
--- NOTE | 2020-07-01 13:52 | DS.PDOC ---
Discharge Summary General Date of Admission Jun 26, 2020 at 20:07 Date of Discharge 07/01/20 Attending Physician: Kiah Chandler MD Discharge Summary HISTORY OF PRESENT ILLNESS: Patient is a 25 y/o F with PMH of IDDM 1, asthma, bipolar disorder, depression, schizophrenia who initially was admitted on 06/26/20 for increased lethargy, high sugar readings at home. History was limited because the patient was lethargic. Per original H&P, she had been sick the week prior to admission with what she though was a cold. She has been feeling unwell with runny nose, cough, abdominal pain and vomiting for a few days. She states to have been taking her medications but had not been eating or drinking well due to her illness. She was found to have elevated AG, WBC 15K, pH 7.0 with + ketones. She was admitted for further treatment of DKA. HOSPITAL COURSE: Patient was admitted to hospital, started on insulin gtt. Electrolytes were replaced and labs were monitored carefully. She had increased n/v along with some lower than normal blood sugars when trasitioned to [place] levemir. She to lerated her diet advancing to consistent carb very well. By 07/01/20, patient was determined much improved to be discharged. She was discharged with tresiba 14 U daily, with anticipation of her sugars increasing and this dose needing to be adjusted. She was counselled at the bedside on close follow up with her providers at [facility] and also about compliance of her insulins. She is to continue humalog ISS as previously. At the time of discharge, she had no acute complaints. ROS: neg except above. PMH/PSH IDDM1 Asthma Bipolar Depression Schizophrenia FMH heart disease, diabetes, mental illness and substance abuse Denies the use of tobacco ALLERGIES: Please see below. DISCHARGE MEDICATIONS: Please see below. PHYSICAL EXAMINATION: VS: Please see below CONSTITUTIONAL: No acute distress, resting comfortably, AAO x 3 EYES: PERRLA, EOM intact HENT, MOUTH: Normocephalic, atraumatic, moist mucous membranes, NECK: SUPPLE, no JVD, no lymphadenopathy, no carotid bruit CV: Regular rate and rhythm, S1S2 normal, no murmurs/rubs/gallops RESPIRATORY: Clear to auscultation bilaterally, no rales/rhonchi/wheezes GI: BS positive in 4 quadrants, soft, nontender, nondistended, no rebound or guarding, no organomegaly : Deferred MUSCULOSKELETAL: Normal ROM. No cyanosis, clubbing, swelling, joint deformity, extremity edema INTEGUMENTARY: Intact, no rashes, no lesions, no erythema NEUROLOGIC: Cranial Nerves II-XII are intact, no focal deficits PSYCHIATRIC: Mood and affect are normal LABORATORY DATA: Please see below IMAGING: Chest Xray: No acute or focal cardiopulmonary process. MICROBIOLOGY: 06/26/20 Blood Culture, NG 06/26/20 Blood Culture, NG ASSESSMENT: is a 25 yr old w a hx of DM1, Asthma, Bipolar Disorder and Depression who presented w c/o malise, cough, runny nose, abd pain and vomiting and admitted for DKA. PLAN: # DKA- resolved. In the setting of non-compliance, reporting that she does not take her insulin regularly and was not even more so due to acute illness prior to this hospitalization -Tolerating lower levemir dosage daily on 14U QAM, ISS. -Doing well with consistent carb diet -No longer having n/v. -D/polo home today with lower tresiba dose of 14U QAM, c/w ISS humalog as previoulsy -She is instructed to follow up closely with provider at [facility] if and when her sugars start to increase. She will need her dose of Tresiba increased at that time. -She was also counselled on importance of compliance with insulins. #Asthma -On RA -albuterol PRN #Bipolar Disorder and depression -continue home escitalopram, aripiprazole Resolved issues: #SIRS in the setting of DKA and dehydration #Nausea, vomiting & abdominal pain: likely 2/2 DKA. Disposition: D/polo home today in improved condition. She needs close follow up with her only being on half of Tresiba dosing than normal- she is aware to contact her PCP when her sugars begin to go up. TIME SPENT ON DISCHARGE: Greater than 30 minutes. Vital Signs/I&Os Vital Signs Date Time Temp Pulse Resp B/P (MAP) Pulse Ox O2 Delivery O2 Flow Rate FiO2 07/01/20 08:19 118/89 07/01/20 06:00 98.4 84 18 96 06/30/20 14:00 Room Air 06/27/20 12:00 2.0 I&O- Last 24 Hours up to 6 AM 07/01/20 06:00 Intake Total 1640 ml Output Total 1850 ml Balance -210 ml Laboratory Data Labs 24H Laboratory Tests 2 06/30/20 17:10: Bedside Glucose (Misc Panel) 121H 06/30/20 20:11: Bedside Glucose (Misc Panel) 102 07/01/20 06:31: Nucleated Red Blood Cells % (auto) 0.0, Anion Gap 6L, Glomerular Filtration Rate > 60.0, Calcium Level 8.8, Phosphorus Level 2.4L, Magnesium Level 1.8 07/01/20 11:56: Bedside Glucose (Misc Panel) 143H CBC/BMP Laboratory Tests 07/01/20 06:31 FSBS Laboratory Tests Test 06/30/20 17:10 06/30/20 20:11 07/01/20 11:56 Range/Units Bedside Glucose (Misc Panel) 121 102 143 70-105 MG/DL Microbiology Microbiology 06/26/20 Respiratory Virus Panel (PCR) (DINA) - Final, Complete 06/26/20 Blood Culture - Preliminary, Resulted No Growth after 72 hours. All specime... 06/26/20 Blood Culture - Preliminary, Resulted No Growth after 72 hours. All specime... Discharge Medications Scheduled Aripiprazole (Abilify) 30 Mg Tablet, 15 MG PO BID, (Reported) Escitalopram Oxalate (Lexapro) 20 Mg Tablet, 20 MG PO DAILY, (Reported) Fluticasone Propionate (Flovent Hfa) 110 Mcg/Act Aer.w.adap, 2 PUFF INH BID Insulin Degludec (Tresiba Flextouch U-100) 100 Unit/1 Ml Insuln.pen, 14 UNITS SC DAILY Insulin Lispro (Humalog Kwikpen U-100) 100 Unit/1 Ml Insuln.pen, 1 DOSE SC AC, (Reported) PER SLIDING SCALE Prazosin Hcl (Prazosin HCl) 1 Mg Capsule, 1 MG PO QHS, (Reported) Scheduled PRN Albuterol Sulfate (Ventolin Hfa) 18 Gm Hfa.aer.ad, 2 PUFF INH Q6HP PRN for SHORTNESS OF BREATH Allergies Coded Allergies: No Known Allergies (Unverified , 10/01/19) Kiah Chandler MD Jul 01, 2020 13:52
[2020-07-02] MEDS ORDERED: TRUL3TAB PO (09:19)
== END 2020-07-01 14:57 | disposition home or self-care (01) | DRG 638 ==
LOC: M ED 18:30 → M ED INP 20:07 → ENRESERV 20:23 → ENRESERVTM 21:41 → M ICU 22:14 → M MSPAV 06-27 18:00
PROVIDERS: ADMIT Internal Medicine; ATTEND Internal Medicine
DX: E10.10 Type 1 diabetes mellitus with ketoacidosis without coma (principal); R65.10 Systemic inflammatory response syndrome (SIRS) of non-infectious origin without acute organ dysfunction; J45.909 Unspecified asthma, uncomplicated; F20.9 Schizophrenia, unspecified; E86.0 Dehydration; F31.9 Bipolar disorder, unspecified; Z79.4 Long term (current) use of insulin; Z79.899 Other long term (current) drug therapy; Z20.828 Contact with and (suspected) exposure to other viral communicable diseases; E83.39 Other disorders of phosphorus metabolism; E10.22 Type 1 diabetes mellitus with diabetic chronic kidney disease; N18.9 Chronic kidney disease, unspecified; Z91.14 Patient's other noncompliance with medication regimen

== ENCOUNTER 2020-07-08 06:58 | Day surgery (SDC) | payer OTHER ==
[~2020-07-08] VITALS: Ht 149.9 cm; Wt 52.6 kg
[~2020-07-08 06:58] MED LIST changes: +ABIL30TA4; +ABIL30TA4 PO; +FLUT11IN INH; +LEXA1TAB2; +LEXA1TAB2 PO; +PRAZ1CAP; +PRAZ1CAP PO; +TRES1INJ2 SC; +TRUL3TAB PO; +VENTAER INH
[2020-07-08] MEDS: NS 1,000 ML IV ONE (07:11)
[2020-07-08] MEDS ORDERED: propofoL 200 MG/20 ML VIAL As Ordered ONE ×2 (07:24→08:00)
[2020-07-08] MEDS ORDERED: LIDOCAINE 2% 100MG/5ML SDV (FOR ANES.) As Ordered ONE (07:25)
[2020-07-08] MEDS: HumaLOG INSULIN (NovoLOG) PER UNIT SC ONE (08:09)
[2020-07-08] MEDS ORDERED: PHENYLephrine HCL 500 MCG/5 ML (100MCG/ML) SYRINGE (J2370) As Ordered ONE (08:31)
--- NOTE | 2020-07-08 08:39 | ROOR ---
Patient Name: Daniel Dalton Procedure Date: 07/08/2020 8:16 AM Date of : 1995 Age: 25 Room: [facility] Gender: Female Note Status: Finalized Procedure: Colonoscopy Indications: Hematochezia, Constipation Providers: Ryan GUERRA MD Referring MD: IRENE BONILLA MD Requesting Provider: Medicines: Monitored Anesthesia Care Complications: No immediate complications. Procedure: Pre-Anesthesia Assessment: - The heart rate, respiratory rate, oxygen saturations, blood pressure, adequacy of pulmonary ventilation, and response to care were monitored throughout the procedure. The Colonoscope was introduced through the anus with the intention of advancing to the cecum. The scope was advanced to the hepatic flexure before the procedure was aborted. Medications were given. The colonoscopy was performed with difficulty due to poor bowel prep with stool present. The patient tolerated the procedure well. The quality of the bowel preparation was poor. The bowel preparation used was TriLyte and magnesium citrate via split dose instruction. Findings: The perianal and digital rectal examinations were normal. A large amount of stool was found in the entire colon, precluding visualization. Impression: - Preparation of the colon was poor. - Stool in the entire examined colon. - No specimens collected. Recommendation: - Repeat colonoscopy at the next available appointment because the bowel preparation was poor. - (Rec alternate colon preparation for next colonoscopy) Procedure Code(s): --- Professional --- 19779, 53, Colonoscopy, flexible; diagnostic, including collection of specimen(s) by brushing or washing, when performed (separate procedure) Diagnosis Code(s): --- Professional --- K59.00, Constipation, unspecified K92.1, Melena (includes Hematochezia) CPT copyright 2019 [employer]. All rights reserved. The codes documented in this report are preliminary and upon er registrar review may be revised to meet current compliance requirements. Ryan Guerra MD Ryan GUERRA MD 07/08/2020 8:39:58 AM Electronically signed by Ryan GUERRA MD Number of Addenda: 0 Note Initiated On: 07/08/2020 8:16 AM Estimated Blood Loss: Estimated blood loss: none.
[2020-07-08 08:55] VITALS: BP 101/67
== END 2020-07-08 09:02 | disposition home or self-care (01) ==
LOC: M OPP 06:58
PROVIDERS: ATTEND Internal Medicine Gastroenterology
DX: R92.1 Mammographic calcification found on diagnostic imaging of breast (principal); K59.00 Constipation, unspecified
CPT/HCPCS: 45378; J2370

== ENCOUNTER 2020-07-21 10:16 | Inpatient (IN) | payer OTHER ==
[~2020-07-21] VITALS: Ht 149.9 cm; Wt 56.4 kg
[2020-07-21 11:37] LABS: VENOUS BASE EXCESS -29.7 (-2.0-2.0); VENOUS HCO3 3.4 MEQ/L (23.0-27.0); VENOUS PARTIAL PRESSURE CO2 20.4 mmHg (38.0-50.0); VENOUS PARTIAL PRESSURE O2 61.7 mmHg (30.0-50.0); VENOUS PH 6.846 UNITS (7.330-7.430); VENOUS STANDARD HCO3 5.5 MEQ/L; VENOUS TOTAL CO2 4.1 MEQ/L (24.0-28.0)
[2020-07-21] MEDS ORDERED: NS 1,000 ML IV ONE ×2 (11:45→12:45)
[2020-07-21 11:48] LABS: HEMATOCRIT 45.2 % (36.0-47.0); HEMOGLOBIN 14.3 g/dl (12.0-15.5); MEAN CORPUSCULAR HEMOGLOBIN 28.7 pg (27.0-33.0); MEAN CORPUSCULAR HGB CONC 31.6 g/dl (32.0-36.5); MEAN CORPUSCULAR VOLUME 90.6 fl (80.0-96.0); PLATELET COUNT, AUTOMATED 404 10^3/uL (150-450); RED BLOOD COUNT 4.99 10^6/uL (4.00-5.40); WHITE BLOOD COUNT 15.2 10^3/uL (4.0-10.0)
[2020-07-21 12:08] LABS: LYMPHOCYTES 14 % (16-44); METAMYELOCYTES 1 % (0-0); MONOCYTES 10 % (0-5); MYELOCYTES 1 % (0-0); NEUTROPHILS 68 % (28-66); PLATELET ESTIMATE NORMAL (NORMAL)
[2020-07-21 12:09] LABS: ANISOCYTOSIS 1+
[2020-07-21 12:10] LABS: RSV AMPLIFICATION NEGATIVE (NEGATIVE)
[2020-07-21 12:18] LABS: ABG O2 SATURATION 98.9 % (95.0-99.0)
[2020-07-21 12:23] LABS: ABG PARTIAL PRESSURE CO2 9.4 mmHg (35.0-45.0); ABG PARTIAL PRESSURE O2 168.2 mmHg (75.0-100.0); ABG pH (ARTERIAL) 6.931 UNITS (7.350-7.450)
[2020-07-21 12:24] LABS: ABG BASE EXCESS -28.9 (-2.0-2.0); ABG HCO3 1.9 MEQ/L (22.0-26.0); ABG TOTAL CO2 2.2 MEQ/L (22.0-29.0)
[2020-07-21 12:25] LABS: ABG STANDARD HCO3 5.7 MEQ/L (22.0-26.0)
[2020-07-21 12:31] LABS: ACETONE/KETONE > 46.00 MG/DL (<2.81); ALBUMIN 3.8 GM/DL (3.2-5.2); ALT/SGPT 17 U/L (12-78); BILIRUBIN,DIRECT < 0.1 MG/DL (0.0-0.2); BILIRUBIN,TOTAL 0.2 MG/DL (0.2-1.0); BLOOD UREA NITROGEN 20 MG/DL (7-18); CALCIUM LEVEL 8.7 MG/DL (8.5-10.1); CARBON DIOXIDE LEVEL 5 MEQ/L (21-32); CHLORIDE LEVEL 95 MEQ/L (98-107); CREATININE FOR GFR 1.22 MG/DL (0.55-1.30); GLOMERULAR FILTRATION RATE > 60.0 (>60); GLUCOSE, FASTING 490 MG/DL (70-100); POTASSIUM SERUM 4.7 MEQ/L (3.5-5.1); SODIUM LEVEL 124 MEQ/L (136-145); THYROXINE (T4) 5.6 UG/DL (4.5-12.0); TOTAL PROTEIN 7.7 GM/DL (6.4-8.2)
[2020-07-21 12:33] LABS: HCG, SERUM QUALITATIVE NEGATIVE (NEGATIVE)
[2020-07-21 12:40] LABS: AMPHETAMINES LEVEL URINE NEGATIVE (NEGATIVE); BARBITURATES URINE NEGATIVE (NEGATIVE)
[2020-07-21 12:41] LABS: BENZODIAZEPINES URINE NEGATIVE (NEGATIVE); CANNABINOIDS URINE NEGATIVE (NEGATIVE); COCAINE METABOLITE URINE NEGATIVE (NEGATIVE); METHADONE URINE NEGATIVE (NEGATIVE); OPIATES URINE NEGATIVE (NEGATIVE); PHENCYCLIDINE URINE NEGATIVE (NEGATIVE)
[2020-07-21] MEDS ORDERED: INSULIN REGULAR IN 0.9 % NACL 100 UNIT in IV 1 EA IV SCH ×2 (12:44)
[2020-07-21] MEDS ORDERED: HumuLIN R (REGULAR) INSULIN (NovoLIN R) **100U/ML** PER UNIT IV ONE (12:45)
[2020-07-21] MEDS ORDERED: INSULIN IV RATE CHANGE DOCUMENTATION ML/HR XX SCH (12:45)
--- NOTE | 2020-07-21 13:06 | REP ---
INDICATION: DYSPNEA/COUGH COMPARISON: 06/26/2020 TECHNIQUE: Portable AP view of the chest FINDINGS: The mediastinum and cardiac silhouette are stable and within normal limits for portable technique. The lung alejo are clear without acute consolidation, effusion, or pneumothorax. Skeletal structures are intact. IMPRESSION: No acute cardiopulmonary process appreciated. <Electronically signed by Jeison Posada > 07/21/20 [id number]
[2020-07-21] MEDS: INSULIN REGULAR IN 0.9 % NACL 100 UNIT in IV 1 EA IV SCH ×2 (14:08)
[2020-07-21] MEDS ORDERED: NS 1,000 ML IV SCH (14:08)
[2020-07-21] MEDS ORDERED: SODIUM BICARBONATE 8.4% INJ 50 ML SYRINGE IV SCH ×2 (14:15→16:00)
--- NOTE | 2020-07-21 14:44 | HPEPDOC ---
[facility] Medical History & Physical Date of Admission Jul 21, 2020 Date of Service: Jul 21, 2020 Attending Physician: Kiah Chandler MD History and Physical CHIEF COMPLAINT: Increased n/v, shortness of breath HISTORY OF PRESENT ILLNESS: Patient is a 25 y/o F with PMH of IDDM 1 (recent admission for DKA 06/26/20- 07/01/20), asthma, bipolar disorder, depression, schizophrenia brought in to ER today for increased lethargy, high sugar readings at home, n/v/d. Patient was not a great historian due to lethargy and increased work of breathing. She admits to not taking her medications at home and has history of noncompliance. She noticed her nonbloody vomiting episodes, nausea with nonbloody diarrhea worsened over the past several days. She could not eat or drink much. She denies sick contacts, fevers, chills, abdominal pain but admits to lightheadedness, lethargy, dizziness, increased shortness of breath. In the ER, VS showed: RR 32-36, P 123, T 98.7, desated to 73-85% on RA and later placed on 2 L NC currently saturating well at 97%. COVID neg. UA neg, blood cultures drawn. Abnormal labs include sodium 124, chloride 95, creatinine 1.22, bicarbonate 5, anion gap 24, lactic acid normal but the VBC 15.2. Ketones were positive. ABG showed pH 6.931 / pCO2 9.4 / pO2 168 / pHCO3 1.9. She was started on IVFs, insulin. She was given 50 mEq sodium bicarb. Surgery is consulted for central line placement due to poor venous access. Patient was admitted to ICU for further management of severe DKA requiring insulin gtt. PMH/PSH IDDM1 Asthma Bipolar Depression Schizophrenia FMH heart disease, diabetes, mental illness and substance abuse SOCIAL HISTORY: Denies the use of tobacco, alcohol or drug. Lives with family. Full Code ALLERGIES: Please see below. DISCHARGE MEDICATIONS: Please see below. PHYSICAL EXAMINATION: VS: Please see below CONSTITUTIONAL: Mild-mod resp distress , appears slightly uncomfortable, lethargic but able to tell me name, place and reason for admission. EYES: PERRLA, EOM intact HENT, MOUTH: Normocephalic, atraumatic, moist mucous membranes, NECK: SUPPLE, no JVD, no lymphadenopathy, no carotid bruit CV: tachycardic, sinus rhythm. S1S2 normal, no murmurs/rubs/gallops RESPIRATORY: Tachypneic, Kussmaul respirations, clear to auscultation bilaterally, no rales/rhonchi/wheezes GI: BS positive in 4 quadrants, soft, nontender, nondistended, no rebound or guarding, no organomegaly : Deferred MUSCULOSKELETAL: Normal ROM. No cyanosis, clubbing, swelling, joint deformity, extremity edema INTEGUMENTARY: Dry skin, poor skin turgor, intact, no rashes, no lesions, no erythema NEUROLOGIC: Cranial Nerves II-XII are intact, no focal deficits LABORATORY DATA: Please see below MICRO: BCx x 2 sets pending UA neg IMAGING: CXR: No acute or focal cardiopulmonary process. ASSESSMENT: is a 25 yr old w a hx of DM1 and history of medication noncompliance, Asthma, Bipolar Disorder and Depression who presented admitted for DKA. PLAN: Severe diabetic ketoacidosis 2/2 to medication noncompliance -+ketones, BS >490, pH 6.93, Kussmal breathing, lethargic -Bicarb deficit 636, given 1 amp of bicarb in ER -Starting on IVFs at 150 cc/hr NSS, insulin gtt per protocol -Poor access so surgery consulted to place central line -Q4 Hr BMP, mag and phos, replace PRN. Repeat ABG at 3:30 PM today -NPO for now -Tele in ICU ALEKS likely 2/2 to dehydration, prerenal cause -Bl Cr wnl -Currently 1.22 -C/w IVFS -Avoid nephrotoxic medications, daily labs N/V/D and abdominal pain in setting of DKA -Will likely improve with improvement of DKA -IVFs, zofran PRN Shortness of breath likely 2/2 to DKA, Kussmaul breathing -Hx of asthma which is currently not in exacerbation (no wheezing) -Currently saturating well on 2 L NC, will wean off as work of breathing improves likely -Albuterol PRN Bipolar Disorder /depression -Stable -NPO but when taking PO, can resume home meds GI px -PPI DVT px -Heparin DISPOSITION: Currently admitted to ICU. Plan is discharge home when medically improved. TOTAL CRITICAL CARE TIME SPENT CARING FOR PATIENT (no procedures): 50 mins Vital Signs Vital Signs Date Time Temp Pulse Resp B/P (MAP) Pulse Ox O2 Delivery O2 Flow Rate FiO2 07/21/20 14:01 121 32 98 Nasal Cannula 2.0 07/21/20 13:48 143/86 (105) 07/21/20 10:17 98.7 Laboratory Data Labs 24H Laboratory Tests 2 07/21/20 10:35: Bedside Glucose (Misc Panel) 473H 07/21/20 10:59: Bedside Glucose (Misc Panel) 487H 07/21/20 11:25: Immature Granulocyte % (Auto) , Neutrophils (%) (Auto) , Nucleated Red Blood Cells % (auto) 1.1H, Neutrophils 68H, Band Neutrophils 6, Lymphocytes (Manual) 14L, Monocytes (Manual) 10H, Metamyelocytes 1H, Myelocytes 1H, Anisocytosis 1+, Platelet Estimate NORMAL, Blood Gas Bicarbonate Standard 5.5, Venous Blood pH 6.846L, Venous Blood Partial Pressure CO2 20.4L, Venous Blood Partial Pressure O2 61.7H, Venous Blood Total Carbon Dioxide 4.1L, Venous Blood HCO3 3.4L, Venous Blood Oxygen Saturation 84.0H, Venous Blood Base Excess -29.7L, Anion Gap 24H, Glomerular Filtration Rate > 60.0, Lactic Acid Level 1.2, Calcium Level 8.7, Total Bilirubin 0.2, Direct Bilirubin < 0.1, Aspartate Amino Transf (AST/SGOT) 6L, Alanine Aminotransferase (ALT/SGPT) 17, Alkaline Phosphatase 118H, Total Protein 7.7, Albumin 3.8, Albumin/Globulin Ratio 1.0L, Thyroid Stimulating Hormone (TSH) 1.720, Thyroxine (T4) 5.6, Human Chorionic Gonadotropin, Qual NEGATIVE, B-Hydroxybutyrate > 46.00H 07/21/20 11:26: Coronavirus (COVID-19)(PCR) NEGATIVE, Influenza Type A (RT-PCR) NEGATIVE, Influenza Type B (RT-PCR) NEGATIVE, Respiratory Syncytial Virus (PCR) NEGATIVE 07/21/20 11:57: Urine Color STRAW, Urine Appearance CLEAR, Urine pH 5.0, Urine Specific [place] 1.016, Urine Protein 2+H, Urine Glucose (UA) 3+H, Urine Ketones 2+H, Urine Blood 1+H, Urine Nitrite NEGATIVE, Urine Bilirubin NEGATIVE, Urine Urobilinogen 0.2, Urine Leukocyte Esterase NEGATIVE, Urine WBC (Auto) 1, Urine RBC (Auto) 0, Urine Hyaline Casts (Auto) 6, Urine Bacteria (Auto) NEGATIVE, Urine Squamous Epithelial Cells 1, Urine Granular Casts (Auto) 8, Urine Mucus (Auto) SMALL, Urine Sperm (Auto) , Urine Opiates Screen NEGATIVE, Urine Methadone Screen NEGATIVE, Urine Barbiturates Screen NEGATIVE, Urine Phencyclidine Screen NEGATIVE, Urine Amphetamines Screen NEGATIVE, Urine Benzodiazepines Screen NEGATIVE, Urine Cocaine Metabolite Screen NEGATIVE, Urine Cannabinoids Screen NEGATIVE 07/21/20 12:07: Blood Gas Bicarbonate Standard 5.7L, Arterial Blood pH 6.931*L, Arterial Blood Partial Pressure CO2 9.4*L, Arterial Blood Partial Pressure O2 168.2H, Arterial Blood Total CO2 2.2L, Arterial Blood HCO3 1.9L, Arterial Blood Base Excess - 28.9L, Arterial Blood Oxygen Saturation 98.9 CBC/BMP Laboratory Tests 07/21/20 11:25 Home Medications Scheduled Insulin Degludec (Tresiba Flextouch U-100) 100 Unit/1 Ml Insuln.pen, 14 UNITS SC DAILY Insulin Lispro (Humalog Kwikpen U-100) 100 Unit/1 Ml Insuln.pen, 1 DOSE SC AC PER SLIDING SCALE Plecanatide (Trulance) 3 Mg Tablet, 3 MG PO DAILY Prazosin Hcl (Prazosin HCl) 1 Mg Capsule, 1 MG PO QHS Scheduled PRN Albuterol Sulfate (Ventolin Hfa) 18 Gm Hfa.aer.ad, 2 PUFF INH Q6HP PRN for SHORTNESS OF BREATH Allergies Coded Allergies: No Known Allergies (Unverified , 07/02/20) A-FIB/CHADSVASC A-FIB History Current/History of A-Fib/PAF?: No Current PO Anticoag Therapy: No Age/Risk Factor Scoring CHADSVASC: CHADSVASC Response (Comments) Value Age Risk Factor Age < 65 years old 0 Gender Risk Factor Female 1 Hx of CHF No 0 Hx of HTN No 0 Hx of Stroke/TIA/or VTE No 0 Hx of Diabetes Yes 1 Hx of Vascular Disease No 0 Total 2 Treatment Treatment ordered: Other Other anticoagulant ordered: heparin Kiah Chandler MD Jul 21, 2020 14:43
[2020-07-21] MEDS ORDERED: VENTAER INH (15:35)
[2020-07-21] MEDS ORDERED: TRES1INJ2 SC (15:35)
[2020-07-21 16:06] LABS: INR 0.9; PARTIAL THROMBOPLASTIN TIME 22.3 SECONDS (24.2-38.5); PROTHROMBIN TIME 12.3 SECONDS (12.5-14.3)
[2020-07-21 16:10] LABS: MAGNESIUM LEVEL 1.8 MG/DL (1.8-2.4)
[2020-07-21 17:22] LABS: BLOOD UREA NITROGEN 20 MG/DL (7-18); CALCIUM LEVEL 7.9 MG/DL (8.5-10.1); CARBON DIOXIDE LEVEL 7 MEQ/L (21-32); CHLORIDE LEVEL 110 MEQ/L (98-107); GLOMERULAR FILTRATION RATE > 60.0 (>60); GLUCOSE, FASTING 173 MG/DL (70-100); PHOSPHORUS LEVEL 1.8 MG/DL (2.5-4.9); POTASSIUM SERUM 3.5 MEQ/L (3.5-5.1); SODIUM LEVEL 136 MEQ/L (136-145)
[2020-07-21 18:05] VITALS: BP 135/81
[2020-07-21] MEDS: D5W/0.9% SODIUM CHLORIDE 1,000 ML IV SCH (18:05)
[2020-07-21 18:15] LABS: ABG O2 SATURATION 98.7 % (95.0-99.0)
[2020-07-21 18:18] LABS: ABG BASE EXCESS -23.7 (-2.0-2.0); ABG HCO3 3.7 MEQ/L (22.0-26.0); ABG STANDARD HCO3 7.9 MEQ/L (22.0-26.0); ABG pH (ARTERIAL) 7.101 UNITS (7.350-7.450)
[2020-07-21] MEDS: PANTOPRAZOLE 40MG VIAL (C9113 PER 1) IV SCH (18:39)
[2020-07-21 19:00] VITALS: BP 127/82
[2020-07-21 20:00] VITALS: BP 118/61
[2020-07-21] MEDS ORDERED: POTASSIUM PHOSPHATE INJ 15 MMOL in D5W 250 ML IV ONE (20:00)
[2020-07-21] MEDS: HEPARIN SOD (PORCINE) 5000UNITS/ML 1ML VIAL/SYRINGE SQ SCH (20:11)
[2020-07-21] MEDS: INSULIN IV RATE CHANGE DOCUMENTATION ML/HR XX SCH ×2 (20:12→21:05)
[2020-07-21 20:34] LABS: BLOOD UREA NITROGEN 17 MG/DL (7-18); CALCIUM LEVEL 7.9 MG/DL (8.5-10.1); CARBON DIOXIDE LEVEL 5 MEQ/L (21-32); CHLORIDE LEVEL 111 MEQ/L (98-107); GLOMERULAR FILTRATION RATE > 60.0 (>60); GLUCOSE, FASTING 150 MG/DL (70-100); POTASSIUM SERUM 3.7 MEQ/L (3.5-5.1); SODIUM LEVEL 137 MEQ/L (136-145)
[2020-07-21 21:00] VITALS: BP 116/84
[2020-07-21] MEDS ORDERED: ENOXAPARIN 40MG/0.4ML SYRINGE (J1650 PER 10MG) SC SCH (21:00)
[2020-07-22] VITALS (25 sets, daily range): BP systolic 114–160; BP diastolic 62–95
--- NOTE | 2020-07-22 00:34 | ECGEPIP ---
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
[2020-07-22] MEDS: D5W/0.9% SODIUM CHLORIDE 1,000 ML IV SCH ×4 (00:55→19:59)
[2020-07-22 01:13] LABS: BLOOD UREA NITROGEN 17 MG/DL (7-18); CALCIUM LEVEL 8.1 MG/DL (8.5-10.1); CARBON DIOXIDE LEVEL 7 MEQ/L (21-32); CHLORIDE LEVEL 113 MEQ/L (98-107); CREATININE FOR GFR 0.86 MG/DL (0.55-1.30); GLOMERULAR FILTRATION RATE > 60.0 (>60); GLUCOSE, FASTING 95 MG/DL (70-100); MAGNESIUM LEVEL 1.8 MG/DL (1.8-2.4); PHOSPHORUS LEVEL 2.2 MG/DL (2.5-4.9); POTASSIUM SERUM 3.5 MEQ/L (3.5-5.1); SODIUM LEVEL 138 MEQ/L (136-145)
[2020-07-22] MEDS: INSULIN IV RATE CHANGE DOCUMENTATION ML/HR XX SCH ×15 (02:22→23:04)
--- NOTE | 2020-07-22 04:03 | REPVR ---
PROCEDURE INFORMATION: Exam: XR Chest, 1 View Exam date and time: 07/22/2020 3:30 AM Age: 25 years old Clinical indication: Other vascular access device placement or adjustment; Other: Triple lumen; Additional info: S/P line placement TECHNIQUE: Imaging protocol: XR of the chest Views: 1 view. COMPARISON: CR PORTABLE CHEST X-RAY 07/21/2020 12:48 PM FINDINGS: Tubes, catheters and devices: Right internal jugular central line to the distal superior vena cava. Lungs: Unremarkable. No consolidation. Pleural space: Unremarkable. No pleural effusion. No pneumothorax. Heart/Mediastinum: Unremarkable. No cardiomegaly. Bones/joints: Unremarkable. IMPRESSION: 1. Interval placement of a right internal jugular central line to the distal superior vena cava since 07/21/2020. No pneumothorax. 2. Otherwise negative stable chest. Electronically signed by: Stew Saenz On 07/22/2020 04:03:16 AM
[2020-07-22] MEDS: INSULIN REGULAR IN 0.9 % NACL 100 UNIT in IV 1 EA IV SCH ×4 (04:26→18:56)
[2020-07-22 04:45] LABS: MEAN CORPUSCULAR HGB CONC 33.6 g/dl (32.0-36.5); MEAN CORPUSCULAR VOLUME 86.2 fl (80.0-96.0); RED BLOOD COUNT 3.83 10^6/uL (4.00-5.40); WHITE BLOOD COUNT 10.6 10^3/uL (4.0-10.0)
[2020-07-22 04:54] LABS: HEMOGLOBIN 11.1 g/dl (12.0-15.5); PLATELET COUNT, AUTOMATED 250 10^3/uL (150-450)
[2020-07-22 05:07] LABS: BLOOD UREA NITROGEN 14 MG/DL (7-18); CALCIUM LEVEL 7.4 MG/DL (8.5-10.1); CARBON DIOXIDE LEVEL 6 MEQ/L (21-32); CHLORIDE LEVEL 115 MEQ/L (98-107); CREATININE FOR GFR 0.82 MG/DL (0.55-1.30); GLOMERULAR FILTRATION RATE > 60.0 (>60); GLUCOSE, FASTING 155 MG/DL (70-100); MAGNESIUM LEVEL 1.7 MG/DL (1.8-2.4); PHOSPHORUS LEVEL 1.3 MG/DL (2.5-4.9); POTASSIUM SERUM 3.1 MEQ/L (3.5-5.1); SODIUM LEVEL 142 MEQ/L (136-145)
[2020-07-22] MEDS ORDERED: MAG SULF 1GM/100ML (MAG RUN) 1 GM in IV 1 EA IV ONE ×2 (08:00→13:00)
[2020-07-22 08:50] LABS: ABG BASE EXCESS -16.2 (-2.0-2.0); ABG HCO3 8.8 MEQ/L (22.0-26.0); ABG O2 SATURATION 98.3 % (95.0-99.0); ABG PARTIAL PRESSURE O2 124.8 mmHg (75.0-100.0); ABG STANDARD HCO3 12.1 MEQ/L (22.0-26.0); ABG TOTAL CO2 9.4 MEQ/L (22.0-29.0); ABG pH (ARTERIAL) 7.262 UNITS (7.350-7.450)
[2020-07-22] MEDS: HEPARIN SOD (PORCINE) 5000UNITS/ML 1ML VIAL/SYRINGE SQ SCH ×2 (08:52→21:10)
[2020-07-22 08:53] LABS: ABG PARTIAL PRESSURE CO2 19.9 mmHg (35.0-45.0)
[2020-07-22 09:22] LABS: BLOOD UREA NITROGEN 12 MG/DL (7-18); CALCIUM LEVEL 7.5 MG/DL (8.5-10.1); CARBON DIOXIDE LEVEL 11 MEQ/L (21-32); CHLORIDE LEVEL 118 MEQ/L (98-107); CREATININE FOR GFR 0.88 MG/DL (0.55-1.30); GLOMERULAR FILTRATION RATE > 60.0 (>60); GLUCOSE, FASTING 162 MG/DL (70-100); MAGNESIUM LEVEL 1.8 MG/DL (1.8-2.4); PHOSPHORUS LEVEL 0.6 MG/DL (2.5-4.9); POTASSIUM SERUM 2.4 MEQ/L (3.5-5.1); SODIUM LEVEL 144 MEQ/L (136-145)
[2020-07-22] MEDS: KCL 10MEQ/100ML SWI (KRUN) 10 MEQ in IV 1 EA IV SCH ×3 (10:10→12:17)
--- NOTE | 2020-07-22 11:17 | IPNPDOC ---
Date Seen The patient was seen on 07/22/20. Progress Note SUBJECTIVE: Patient denies nausea, vomiting, abdominal pain. This morning she remains acidemic with bicarbonate of 6. No fever, chills, shortness of breath, chest pain, pressure or tightness. C omplains of generalized weakness and decreased appetite OBJECTIVE: PHYSICAL EXAMINATION: VITAL SIGNS SEE BELOW. Gen.: No distress. Speaks in full sentences. No cyanosis or pallor . HEENT no JVD, thyromegaly. Dry mucous membranes . Lungs: Clear to auscultation, wheezing or rales. No adventitious breath sounds . Heart: S1, S2, sinus rhythm . Abdomen: Soft, nontender, nondistended, positive bowel sounds 4 quadrants. Extremities: No cyanosis, clubbing or pitting edema Laboratory data see below , Microbiology, see below Hospital medications see below Assessment : 25-year-old with type 1 diabetes admitted on 07/21/2020 with complaints of increased nausea, vomiting and shortness of breath, found to be in diabetic ketoacidosis, currently on insulin drip. Problem list: Diabetic ketoacidosis, hypokalemia Hypomagnesemia Hypophosphatemia History of asthma, currently compensated History of bipolar disorder and depression with no symptoms Plan: Patient is to be continued on nothing by mouth status insulin drip until patient's anion gap has closed and acidemia has resolved. Once these goals have been obtained. Patient may be changed to consistent carbohydrate diet. IV fluids can be discontinued for now. Continue on D5 half-normal saline to prevent hypoglycemia while on insulin drip. Continue with every 4 hourly, electrolyte monitoring. Replete potassium. Magnesium through her central line and phosphorus. Continue on every hourly fingersticks while on insulin drip VS, I&O, 24H, Fishbone Vital Signs/I&O Vital Signs Date Time Temp Pulse Resp B/P (MAP) Pulse Ox O2 Delivery O2 Flow Rate FiO2 07/22/20 09:00 129 137/95 (109) 98 Room Air 07/22/20 08:00 97.9 22 07/21/20 15:01 2.0 I&O- Last 24 Hours up to 6 AM 07/22/20 06:00 Intake Total 2860 ml Output Total 300 ml Balance 2560 ml Laboratory Data 24H LABS Laboratory Tests 2 07/21/20 11:25: Immature Granulocyte % (Auto) , Neutrophils (%) (Auto) , Nucleated Red Blood Cells % (auto) 1.1H, Neutrophils 68H, Band Neutrophils 6, Lymphocytes (Manual) 14L, Monocytes (Manual) 10H, Metamyelocytes 1H, Myelocytes 1H, Anisocytosis 1+, Platelet Estimate NORMAL, Blood Gas Bicarbonate Standard 5.5, Venous Blood pH 6.846L, Venous Blood Partial Pressure CO2 20.4L, Venous Blood Partial Pressure O2 61.7H, Venous Blood Total Carbon Dioxide 4.1L, Venous Blood HCO3 3.4L, Venous Blood Oxygen Saturation 84.0H, Venous Blood Base Excess -29.7L, Anion Gap 24H, Glomerular Filtration Rate > 60.0, Lactic Acid Level 1.2, Calcium Level 8.7, Total Bilirubin 0.2, Direct Bilirubin < 0.1, Aspartate Amino Transf (AST/SGOT) 6L, Alanine Aminotransferase (ALT/SGPT) 17, Alkaline Phosphatase 118H, Total Protein 7.7, Albumin 3.8, Albumin/Globulin Ratio 1.0L, Thyroid Stimulating Hormone (TSH) 1.720, Thyroxine (T4) 5.6, Human Chorionic Gonadotropin, Qual NEGATIVE, B-Hydroxybutyrate > 46.00H 07/21/20 11:26: Coronavirus (COVID-19)(PCR) NEGATIVE, Influenza Type A (RT-PCR) NEGATIVE, Influenza Type B (RT-PCR) NEGATIVE, Respiratory Syncytial Virus (PCR) NEGATIVE 07/21/20 11:57: Urine Color STRAW, Urine Appearance CLEAR, Urine pH 5.0, Urine Specific [place] 1.016, Urine Protein 2+H, Urine Glucose (UA) 3+H, Urine Ketones 2+H, Urine Blood 1+H, Urine Nitrite NEGATIVE, Urine Bilirubin NEGATIVE, Urine Urobilinogen 0.2, Urine Leukocyte Esterase NEGATIVE, Urine WBC (Auto) 1, Urine RBC (Auto) 0, Urine Hyaline Casts (Auto) 6, Urine Bacteria (Auto) NEGATIVE, Urine Squamous Epithelial Cells 1, Urine Granular Casts (Auto) 8, Urine Mucus (Auto) SMALL, Urine Sperm (Auto) , Urine Opiates Screen NEGATIVE, Urine Methadone Screen NEG ATIVE, Urine Barbiturates Screen NEGATIVE, Urine Phencyclidine Screen NEGATIVE, Urine Amphetamines Screen NEGATIVE, Urine Benzodiazepines Screen NEGATIVE, Urine Cocaine Metabolite Screen NEGATIVE, Urine Cannabinoids Screen NEGATIVE 07/21/20 12:07: Blood Gas Bicarbonate Standard 5.7L, Arterial Blood pH 6.931*L, Arterial Blood Partial Pressure CO2 9.4*L, Arterial Blood Partial Pressure O2 168.2H, Arterial Blood Total CO2 2.2L, Arterial Blood HCO3 1.9L, Arterial Blood Base Excess - 28.9L, Arterial Blood Oxygen Saturation 98.9 07/21/20 15:43: Prothrombin Time 12.3, Prothromb Time International Ratio 0.90, Activated Partial Thromboplast Time 22.3L, Anion Gap 19H, Glomerular Filtration Rate > 60.0, Estimated Mean Plasma Glucose 326H, Hemoglobin A1c 13.0, Calcium Level 7.9L, Phosphorus Level 1.8L, Magnesium Level 1.8 07/21/20 15:46: Bedside Glucose (Misc Panel) 198H 07/21/20 16:43: Bedside Glucose (Misc Panel) 126H 07/21/20 17:40: Magnesium Level 1.9 07/21/20 18:01: Bedside Glucose (Misc Panel) 87 07/21/20 18:04: Blood Gas Bicarbonate Standard 7.9L, Arterial Blood pH 7.101*L, Arterial Blood Partial Pressure CO2 12.0*L, Arterial Blood Partial Pressure O2 147.0H, Arterial Blood Total CO2 4.0L, Arterial Blood HCO3 3.7L, Arterial Blood Base Excess - 23.7L, Arterial Blood Oxygen Saturation 98.7 07/21/20 18:50: Bedside Glucose (Misc Panel) 86 07/21/20 20:04: Bedside Glucose (Misc Panel) 133H, Anion Gap 21H, Glomerular Filtration Rate > 60.0, Calcium Level 7.9L, Phosphorus Level 2.0L, Magnesium Level 1.8 07/21/20 21:03: Bedside Glucose (Misc Panel) 173H 07/21/20 22:06: Bedside Glucose (Misc Panel) 155H 07/21/20 22:59: Bedside Glucose (Misc Panel) 152H 07/22/20 00:05: Bedside Glucose (Misc Panel) 91 07/22/20 00:41: Anion Gap 18H, Glomerular Filtration Rate > 60.0, Calcium Level 8.1L, Phosphorus Level 2.2L, Magnesium Level 1.8 07/22/20 01:02: Bedside Glucose (Misc Panel) 106H 07/22/20 02:16: Bedside Glucose (Misc Panel) 174H 07/22/20 03:31: Bedside Glucose (Misc Panel) 83 07/22/20 04:04: Bedside Glucose (Misc Panel) 135H 07/22/20 04:32: Nucleated Red Blood Cells % (auto) 0.4H, Anion Gap 21H, Glomerular Filtration Rate > 60.0, Calcium Level 7.4L, Phosphorus Level 1.3#L, Magnesium Level 1.7L, B-Hydroxybutyrate > 46.00H 07/22/20 05:20: Bedside Glucose (Misc Panel) 162H 07/22/20 06:12: Bedside Glucose (Misc Panel) 145H 07/22/20 07:09: Bedside Glucose (Misc Panel) 153H 07/22/20 08:34: Bedside Glucose (Misc Panel) 148H 07/22/20 08:38: Anion Gap 15, Glomerular Filtration Rate > 60.0, Calcium Level 7.5L, Phosphorus Level 0.6#L, Magnesium Level 1.8 07/22/20 08:39: Blood Gas Bicarbonate Standard 12.1L, Arterial Blood pH 7.262L, Arterial Blood Partial Pressure CO2 19.9*L, Arterial Blood Partial Pressure O2 124.8H, Arterial Blood Total CO2 9.4L, Arterial Blood HCO3 8.8L, Arterial Blood Base Excess - 16.2L, Arterial Blood Oxygen Saturation 98.3 07/22/20 09:06: Bedside Glucose (Misc Panel) 160H 07/22/20 10:11: Bedside Glucose (Misc Panel) 157H 07/22/20 11:09: CBC/BMP Laboratory Tests 07/21/20 11:25 07/21/20 15:43 07/21/20 20:04 07/22/20 00:41 07/22/20 04:32 07/22/20 08:38 Microbiology Microbiology 07/21/20 Blood Culture, Received Pending 07/21/20 Blood Culture, Received Pending LISA HURTADO MD Jul 22, 2020 11:17
[2020-07-22] MEDS ORDERED: POTASSIUM PHOSPHATE INJ 18 MMOL in D5W 250 ML IV ONE (12:00)
[2020-07-22 13:27] LABS: BLOOD UREA NITROGEN 11 MG/DL (7-18); CALCIUM LEVEL 7.6 MG/DL (8.5-10.1); CARBON DIOXIDE LEVEL 11 MEQ/L (21-32); CHLORIDE LEVEL 117 MEQ/L (98-107); CREATININE FOR GFR 0.74 MG/DL (0.55-1.30); GLOMERULAR FILTRATION RATE > 60.0 (>60); GLUCOSE, FASTING 155 MG/DL (70-100); MAGNESIUM LEVEL 2.3 MG/DL (1.8-2.4); PHOSPHORUS LEVEL 0.8 MG/DL (2.5-4.9); POTASSIUM SERUM 2.7 MEQ/L (3.5-5.1); SODIUM LEVEL 142 MEQ/L (136-145)
[2020-07-22] MEDS: KCL 20MEQ IN 100ML SWI (KRUN) 20 MEQ in IV 1 EA IV SCH ×6 (13:56→22:33)
[2020-07-22] MEDS: PANTOPRAZOLE 40MG VIAL (C9113 PER 1) IV SCH (15:04)
[2020-07-22 17:16] LABS: BLOOD UREA NITROGEN 8 MG/DL (7-18); CALCIUM LEVEL 7.1 MG/DL (8.5-10.1); CARBON DIOXIDE LEVEL 13 MEQ/L (21-32); CHLORIDE LEVEL 117 MEQ/L (98-107); CREATININE FOR GFR 0.75 MG/DL (0.55-1.30); GLOMERULAR FILTRATION RATE > 60.0 (>60); GLUCOSE, FASTING 173 MG/DL (70-100); MAGNESIUM LEVEL 2.1 MG/DL (1.8-2.4); PHOSPHORUS LEVEL 1.8 MG/DL (2.5-4.9); POTASSIUM SERUM 3.3 MEQ/L (3.5-5.1); SODIUM LEVEL 142 MEQ/L (136-145)
[2020-07-22] MEDS ORDERED: POTASSIUM PHOSPHATE INJ 30 MMOL in D5W 500 ML IV ONE (19:00)
[2020-07-22 20:55] LABS: BLOOD UREA NITROGEN 7 MG/DL (7-18); CALCIUM LEVEL 7.2 MG/DL (8.5-10.1); CARBON DIOXIDE LEVEL 15 MEQ/L (21-32); CHLORIDE LEVEL 119 MEQ/L (98-107); CREATININE FOR GFR 0.62 MG/DL (0.55-1.30); GLOMERULAR FILTRATION RATE > 60.0 (>60); GLUCOSE, FASTING 100 MG/DL (70-100); PHOSPHORUS LEVEL 0.8 MG/DL (2.5-4.9); POTASSIUM SERUM 2.8 MEQ/L (3.5-5.1); SODIUM LEVEL 145 MEQ/L (136-145)
[2020-07-22] MEDS ORDERED: KCL 20MEQ IN STERILE WATER 100ML As Ordered ONE (22:26)
[2020-07-23] VITALS (9 sets, daily range): BP systolic 110–168; BP diastolic 63–97
[2020-07-23] MEDS: INSULIN IV RATE CHANGE DOCUMENTATION ML/HR XX SCH ×8 (00:05→14:21)
[2020-07-23] MEDS: KCL 20MEQ IN 100ML SWI (KRUN) 20 MEQ in IV 1 EA IV SCH ×2 (00:11)
[2020-07-23 00:58] LABS: BLOOD UREA NITROGEN 6 MG/DL (7-18); CARBON DIOXIDE LEVEL 17 MEQ/L (21-32); CHLORIDE LEVEL 118 MEQ/L (98-107); CREATININE FOR GFR 0.66 MG/DL (0.55-1.30); GLOMERULAR FILTRATION RATE > 60.0 (>60); GLUCOSE, FASTING 161 MG/DL (70-100); MAGNESIUM LEVEL 1.8 MG/DL (1.8-2.4); PHOSPHORUS LEVEL 2.5 MG/DL (2.5-4.9); POTASSIUM SERUM 3.4 MEQ/L (3.5-5.1); SODIUM LEVEL 142 MEQ/L (136-145)
[2020-07-23 04:31] LABS: HEMATOCRIT 28.2 % (36.0-47.0); HEMOGLOBIN 9.9 g/dl (12.0-15.5); MEAN CORPUSCULAR HEMOGLOBIN 29.6 pg (27.0-33.0); MEAN CORPUSCULAR HGB CONC 35.1 g/dl (32.0-36.5); MEAN CORPUSCULAR VOLUME 84.2 fl (80.0-96.0); PLATELET COUNT, AUTOMATED 191 10^3/uL (150-450); RED BLOOD COUNT 3.35 10^6/uL (4.00-5.40); WHITE BLOOD COUNT 5.4 10^3/uL (4.0-10.0)
[2020-07-23 05:00] LABS: BLOOD UREA NITROGEN 4 MG/DL (7-18); CALCIUM LEVEL 6.8 MG/DL (8.5-10.1); CARBON DIOXIDE LEVEL 17 MEQ/L (21-32); CHLORIDE LEVEL 118 MEQ/L (98-107); CREATININE FOR GFR 0.63 MG/DL (0.55-1.30); GLOMERULAR FILTRATION RATE > 60.0 (>60); GLUCOSE, FASTING 120 MG/DL (70-100); MAGNESIUM LEVEL 1.8 MG/DL (1.8-2.4); PHOSPHORUS LEVEL 1.6 MG/DL (2.5-4.9); POTASSIUM SERUM 3.1 MEQ/L (3.5-5.1); SODIUM LEVEL 145 MEQ/L (136-145)
[2020-07-23] MEDS: D5W/0.9% SODIUM CHLORIDE 1,000 ML IV SCH ×3 (05:25→21:33)
[2020-07-23 08:19] LABS: BLOOD UREA NITROGEN 4 MG/DL (7-18); CALCIUM LEVEL 7.1 MG/DL (8.5-10.1); CARBON DIOXIDE LEVEL 19 MEQ/L (21-32); CHLORIDE LEVEL 118 MEQ/L (98-107); CREATININE FOR GFR 0.57 MG/DL (0.55-1.30); GLOMERULAR FILTRATION RATE > 60.0 (>60); GLUCOSE, FASTING 132 MG/DL (70-100); MAGNESIUM LEVEL 1.7 MG/DL (1.8-2.4); PHOSPHORUS LEVEL 1.3 MG/DL (2.5-4.9); POTASSIUM SERUM 2.8 MEQ/L (3.5-5.1); SODIUM LEVEL 145 MEQ/L (136-145)
[2020-07-23] MEDS ORDERED: MAG SULF 1GM/100ML (MAG RUN) 1 GM in IV 1 EA IV ONE (08:30)
[2020-07-23] MEDS: HEPARIN SOD (PORCINE) 5000UNITS/ML 1ML VIAL/SYRINGE SQ SCH (08:43)
--- NOTE | 2020-07-23 09:07 | IPNPDOC ---
Date Seen The patient was seen on 07/23/20. Progress Note SUBJECTIVE: feels better, anxious to eat. no n/v/abd pain. anion gap closed. no fever,chills, sob OBJECTIVE: PHYSICAL EXAMINATION: VITAL SIGNS SEE BELOW. Gen.:aaox 3nodistress . HEENT moist mm no cervical lad or thyromegaly . Lungs: Clear to auscultation, . Heart: S1, S2, sinus rhythm . Abdomen: Soft, nontender, nondistended, positive bowel sounds 4 quadrants. Extremities: No cyanosis, clubbing or pitting edema Laboratory data see below , Microbiology, see below Hospital medications see below Assessment : 25-year-old with type 1 diabetes admitted on 07/21/2020 with complaints of increased nausea, vomiting and shortness of breath, found to be in diabetic ketoacidosis, current ly on insulin drip. Problem list: Diabetic ketoacidosis, resolved hypokalemia Hypophosphatemia History of asthma, currently compensated History of bipolar disorder and depression with no symptoms Plan: advance to consistent carbs diet if repeat bicarb 21 or higher, can give long acting insulin and dc insulin iv gtt 1hr after dchome later today if tolerates diet. VS, I&O, 24H, Fishbone Vital Signs/I&O Vital Signs Date Time Temp Pulse Resp B/P (MAP) Pulse Ox O2 Delivery O2 Flow Rate FiO2 07/23/20 02:00 94 127/88 (101) 100 Room Air 07/23/20 00:00 98.2 17 07/21/20 15:01 2.0 I&O- Last 24 Hours up to 6 AM 07/23/20 06:00 Intake Total 2571 ml Output Total 1360 ml Balance 1211 ml Laboratory Data 24H LABS Laboratory Tests 2 07/22/20 09:06: Bedside Glucose (Misc Panel) 160H 07/22/20 10:11: Bedside Glucose (Misc Panel) 157H 07/22/20 11:09: Bedside Glucose (Misc Panel) 144H 07/22/20 12:28: Anion Gap 14, Glomerular Filtration Rate > 60.0, Calcium Level 7.6L, Phosphorus Level 0.8#L, Magnesium Level 2.3 07/22/20 12:30: Bedside Glucose (Misc Panel) 144H 07/22/20 12:59: Bedside Glucose (Misc Panel) 144H 07/22/20 14:00: Bedside Glucose (Misc Panel) 177H 07/22/20 15:07: Bedside Glucose (Misc Panel) 143H 07/22/20 16:02: Bedside Glucose (Misc Panel) 148H 07/22/20 16:29: Anion Gap 12, Glomerular Filtration Rate > 60.0, Calcium Level 7.1L, Phosphorus Level 1.8#L, Magnesium Level 2.1 07/22/20 17:05: Bedside Glucose (Misc Panel) 168H 07/22/20 18:00: Bedside Glucose (Misc Panel) 154H 07/22/20 18:47: Bedside Glucose (Misc Panel) 138H 07/22/20 20:03: Bedside Glucose (Misc Panel) 104 07/22/20 20:15: Anion Gap 11, Glomerular Filtration Rate > 60.0, Calcium Level 7.2L, Phosphorus Level 0.8#L, Magnesium Level 2.0 07/22/20 21:06: Bedside Glucose (Misc Panel) 127H 07/22/20 22:04: Bedside Glucose (Misc Panel) 146H 07/22/20 23:02: Bedside Glucose (Misc Panel) 159H 07/22/20 23:58: Bedside Glucose (Misc Panel) 144H 07/23/20 00:14: Anion Gap 7L, Glomerular Filtration Rate > 60.0, Calcium Level 7.0L, Phosphorus Level 2.5#, Magnesium Level 1.8 07/23/20 01:08: Bedside Glucose (Misc Panel) 149H 07/23/20 02:57: Bedside Glucose (Misc Panel) 125H 07/23/20 04:08: Bedside Glucose (Misc Panel) 107H 07/23/20 04:15: Nucleated Red Blood Cells % (auto) 0.0, Anion Gap 10, Glomerular Filtration Rate > 60.0, Calcium Level 6.8L, Phosphorus Level 1.6#L, Magnesium Level 1.8 07/23/20 05:01: Bedside Glucose (Misc Panel) 117H 07/23/20 06:01: Bedside Glucose (Misc Panel) 129H 07/23/20 06:57: Bedside Glucose (Misc Panel) 128H 07/23/20 07:35: Anion Gap 8, Glomerular Filtration Rate > 60.0, Calcium Level 7.1L, Phosphorus Level 1.3L, Magnesium Level 1.7L CBC/BMP Laboratory Tests 07/22/20 12:28 07/22/20 16:29 07/22/20 20:15 07/23/20 00:14 07/23/20 04:15 07/23/20 07:35 Microbiology Microbiology 07/21/20 Blood Culture - Preliminary, Resulted No growth after 24 hours . All specim... 07/21/20 Blood Culture - Preliminary, Resulted No growth after 24 hours . All specim... LISA HURTADO MD Jul 23, 2020 09:02
[2020-07-23] MEDS: POTASSIUM PHOSPHATE INJ 30 MMOL in D5W 500 ML IV SCH ×2 (10:16→15:13)
[2020-07-23 12:36] LABS: BLOOD UREA NITROGEN 3 MG/DL (7-18); CALCIUM LEVEL 8.2 MG/DL (8.5-10.1); CARBON DIOXIDE LEVEL 18 MEQ/L (21-32); CHLORIDE LEVEL 114 MEQ/L (98-107); CREATININE FOR GFR 0.79 MG/DL (0.55-1.30); GLOMERULAR FILTRATION RATE > 60.0 (>60); GLUCOSE, FASTING 156 MG/DL (70-100); MAGNESIUM LEVEL 2.3 MG/DL (1.8-2.4); PHOSPHORUS LEVEL 2.1 MG/DL (2.5-4.9); SODIUM LEVEL 142 MEQ/L (136-145)
[2020-07-23] MEDS ORDERED: LEVEMIR (INSULIN DETEMIR) 1 UNITS/0.01ML SC ONE (13:00)
[2020-07-23] MEDS: PANTOPRAZOLE 40MG VIAL (C9113 PER 1) IV SCH (14:03)
[2020-07-23 16:20] LABS: BLOOD UREA NITROGEN 2 MG/DL (7-18); CALCIUM LEVEL 7.6 MG/DL (8.5-10.1); CARBON DIOXIDE LEVEL 20 MEQ/L (21-32); CHLORIDE LEVEL 114 MEQ/L (98-107); CREATININE FOR GFR 0.74 MG/DL (0.55-1.30); GLOMERULAR FILTRATION RATE > 60.0 (>60); GLUCOSE, FASTING 185 MG/DL (70-100); POTASSIUM SERUM 3.2 MEQ/L (3.5-5.1); SODIUM LEVEL 142 MEQ/L (136-145)
[2020-07-23] MEDS ORDERED: POTASSIUM CHLORIDE 10 MEQ SR TABLET PO ONE (16:30)
[2020-07-23] MEDS ORDERED: GLUCOSE 4GM CHEW TABLET PO PRN (16:45)
[2020-07-23] MEDS ORDERED: DEXTROSE 50% 50 ML SYRINGE IV PRN (16:45)
[2020-07-23] MEDS ORDERED: GLUCAGON INJ 1MG VIAL SC PRN (16:45)
[2020-07-23] MEDS: HumaLOG INSULIN (NovoLOG) PER UNIT SC SCH (16:53)
[2020-07-23] MEDS ORDERED: HumaLOG INSULIN (NovoLOG) PER UNIT SC SCH (21:00)
[2020-07-23 22:33] LABS: BLOOD UREA NITROGEN 2 MG/DL (7-18); CALCIUM LEVEL 7.7 MG/DL (8.5-10.1); CARBON DIOXIDE LEVEL 20 MEQ/L (21-32); CHLORIDE LEVEL 115 MEQ/L (98-107); CREATININE FOR GFR 0.66 MG/DL (0.55-1.30); GLOMERULAR FILTRATION RATE > 60.0 (>60); GLUCOSE, FASTING 144 MG/DL (70-100); PHOSPHORUS LEVEL 2.3 MG/DL (2.5-4.9); POTASSIUM SERUM 3.7 MEQ/L (3.5-5.1); SODIUM LEVEL 142 MEQ/L (136-145)
[2020-07-24 03:18] LABS: BLOOD UREA NITROGEN 2 MG/DL (7-18); CALCIUM LEVEL 7.2 MG/DL (8.5-10.1); CARBON DIOXIDE LEVEL 21 MEQ/L (21-32); CHLORIDE LEVEL 118 MEQ/L (98-107); CREATININE FOR GFR 0.61 MG/DL (0.55-1.30); GLOMERULAR FILTRATION RATE > 60.0 (>60); GLUCOSE, FASTING 150 MG/DL (70-100); PHOSPHORUS LEVEL 2.1 MG/DL (2.5-4.9); POTASSIUM SERUM 3.2 MEQ/L (3.5-5.1); SODIUM LEVEL 147 MEQ/L (136-145)
[2020-07-24] MEDS: D5W/0.9% SODIUM CHLORIDE 1,000 ML IV SCH (04:09)
[2020-07-24 06:00] VITALS: BP 121/71
[2020-07-24 06:07] LABS: HEMOGLOBIN 9.3 g/dl (12.0-15.5); MEAN CORPUSCULAR HEMOGLOBIN 29.2 pg (27.0-33.0); MEAN CORPUSCULAR HGB CONC 34.4 g/dl (32.0-36.5); MEAN CORPUSCULAR VOLUME 84.6 fl (80.0-96.0); PLATELET COUNT, AUTOMATED 196 10^3/uL (150-450); RED BLOOD COUNT 3.19 10^6/uL (4.00-5.40); WHITE BLOOD COUNT 4.2 10^3/uL (4.0-10.0)
[2020-07-24 06:37] LABS: BLOOD UREA NITROGEN 1 MG/DL (7-18); CALCIUM LEVEL 7.9 MG/DL (8.5-10.1); CARBON DIOXIDE LEVEL 22 MEQ/L (21-32); CHLORIDE LEVEL 117 MEQ/L (98-107); CREATININE FOR GFR 0.65 MG/DL (0.55-1.30); GLOMERULAR FILTRATION RATE > 60.0 (>60); GLUCOSE, FASTING 186 MG/DL (70-100); PHOSPHORUS LEVEL 2.3 MG/DL (2.5-4.9); POTASSIUM SERUM 3.5 MEQ/L (3.5-5.1); SODIUM LEVEL 145 MEQ/L (136-145)
[2020-07-24] MEDS: HumaLOG INSULIN (NovoLOG) PER UNIT SC SCH (07:48)
--- NOTE | 2020-07-24 11:51 | DS.PDOC ---
Discharge Summary General Date of Admission Jul 21, 2020 at 14:18 Date of Discharge 07/24/20 Discharge Summary DISCHARGE DIAGNOSIS: Diabetic ketoacidosis Medical noncompliance hypokalemia Hypophosphatemia History of asthma History of bipolar disorder and depression DISCHARGE MEDICATIONS: SEE BELOW ALLERGIES: SEE BELOW DISCHARGE INSTRUCTIONS: PRIMARY CARE PHYSICIAN APPOINTMENT WITHIN 5-7 DAYS OF DISCHARGE. CALL YOUR PHYSICIAN IF GLUCOSE IS GREATER THAN 300 OR LESS THAN HOSPITAL COURSE: 25-year-old with type 1 diabetes admitted on 07/21/2020 with complaints of increased nausea, vomiting and shortness of breath, found to be in diabetic ketoacidosis. Patient had no acute infectious Issues and did not receive empiric antibiotics. She was admitted to the intensive care unit with every hourly fingersticks regularly insulin IV drip until her anion gap is closed and bicarbonate was back to normal . She was kept nothing by mouth until anion gap is closed and started on consistent carbohydrate diet without any problems. She denied any abdominal pain, nausea, vomiting, fevers, chills, cough, shortness of breath On the day of discharge. She tolerated her diet. DISCHARGE PHYSICAL EXAM VITAL SIGNS SEE BELOW. Gen.:aaox 3nodistress . HEENT moist mm no cervical lad or thyromegaly . Lungs: Clear to auscultation, . Heart: S1, S2, sinus rhythm . Abdomen: Soft, nontender, nondistended, positive bowel sounds 4 quadrants. Extremities: No cyanosis, clubbing or pitting edema Laboratory data see below , Microbiology, see below , Imaging studies, see below TIME SPENT ON DISCHARGE 30 MINUTES Vital Signs/I&Os Vital Signs Date Time Temp Pulse Resp B/P (MAP) Pulse Ox O2 Delivery O2 Flow Rate FiO2 07/24/20 06:00 98.1 82 18 121/71 (88) 99 Room Air 07/21/20 15:01 2.0 I&O- Last 24 Hours up to 6 AM 07/24/20 06:00 Intake Total 7288 ml Output Total 3450 ml Balance 3838 ml Laboratory Data Labs 24H Laboratory Tests 2 07/23/20 11:57: Anion Gap 10, Glomerular Filtration Rate > 60.0, Calcium Level 8.2#L, Whole Blood Ionized Calcium 4.7, Phosphorus Level 2.1#L, Magnesium Level 2.3 07/23/20 13:11: Bedside Glucose (Misc Panel) 145H 07/23/20 14:05: Bedside Glucose (Misc Panel) 192H 07/23/20 15:15: Bedside Glucose (Misc Panel) 192H 07/23/20 15:30: Anion Gap 8, Glomerular Filtration Rate > 60.0, Calcium Level 7.6L, Phosphorus Level 3.0# 07/23/20 21:21: Bedside Glucose (Misc Panel) 132H 07/23/20 21:39: Anion Gap 7L, Glomerular Filtration Rate > 60.0, Calcium Level 7.7L, Phosphorus Level 2.3#L 07/24/20 02:40: Anion Gap 8, Glomerular Filtration Rate > 60.0, Calcium Level 7.2L, Phosphorus Level 2.1L 07/24/20 05:41: Nucleated Red Blood Cells % (auto) 0.0, Anion Gap 6L, Glomerular Filtration Rate > 60.0, Calcium Level 7.9L, Phosphorus Level 2.3L CBC/BMP Laboratory Tests 07/23/20 11:57 07/23/20 15:30 07/23/20 21:39 07/24/20 02:40 07/24/20 05:41 FSBS Laboratory Tests Test 07/23/20 13:11 07/23/20 14:05 07/23/20 15:15 07/23/20 21:21 Range/Units Bedside Glucose (Misc Panel) 145 192 192 132 70-105 MG/DL Microbiology Microbiology 07/21/20 Blood Culture - Preliminary, Resulted No Growth after 48 hours. All Specime... 07/21/20 Blood Culture - Preliminary, Resulted No Growth after 48 hours. All Specime... Discharge Medications Scheduled Insulin Degludec (Tresiba Flextouch U-100) 100 Unit/1 Ml Insuln.pen, 14 UNIT SC QPM, (Reported) Insulin Lispro (Humalog Kwikpen U-100) 100 Unit/1 Ml Insuln.pen, 1 DOSE SC AC, (Reported) PER SLIDING SCALE Plecanatide (Trulance) 3 Mg Tablet, 3 MG PO DAILY, (Reported) Prazosin Hcl (Prazosin HCl) 1 Mg Capsule, 1 MG PO QHS, (Reported) Scheduled PRN Albuterol Sulfate (Ventolin Hfa) 18 Gm Hfa.aer.ad, 2 PUFFS INH Q6H PRN for SOB/ WHEEZING, (Reported) Allergies Coded Allergies: No Known Allergies (Unverified , 07/02/20) LISA HURTADO MD Jul 24, 2020 11:51
--- NOTE | 2020-07-24 15:48 | RO ---
OPERATIVE NOTE DATE OF OPERATION: 07/22/2020 PREOPERATIVE DIAGNOSIS: Diabetic ketoacidosis with need for central venous access. POSTOPERATIVE DIAGNOSIS: Diabetic ketoacidosis with need for central venous access. PROCEDURE PERFORMED: Insertion of right internal jugular triple lumen central venous line with ultrasound guidance. SURGEON: Lang Willson MD ANESTHESIA: Local with 1% Xylocaine INDICATION FOR THE PROCEDURE: The patient is a 25-year-old woman with diabetes admitted with diabetic ketoacidosis. She has poor peripheral veins and has failed several attempts at peripheral venous access. She is now for placement of a central line. OPERATIVE PROCEDURE: The patient was placed supine in the bed. The right neck and upper chest and shoulder were prepped and draped sterilely. The ultrasound was used to examine the neck, and the carotid artery and internal jugular vein were both clearly identified. The patient was placed into a Trendelenburg position to accentuate the filling of the internal jugular vein. Local anesthesia of 1% Xylocaine was infiltrated. Using ultrasound guidance, the 18 gauge needle was inserted into the vein without difficulty. There was excellent blood return. The guide wire was placed. The skin was nicked and the dilator was passed. The 7 [place]ian triple lumen central venous catheter, which had previously been flushed with saline was then inserted over the guidewire to approximately 15 cm. The guidewire was removed. All ports were flushed after demonstrating excellent blood return. The catheter was backed out to approximately 11 to 12 cm at the skin based on the patient's stature. The suture wing was attached and the wing was sutured to the skin with two 3-0 silk sutures. The site was dressed sterilely with a chlorhexidine gluconate OpSite. The patient tolerated the procedure well without apparent complications. Follow up chest x-ray showed excellent positioning of the tip of the catheter with no evidence of pneumothorax. [facility]
== END 2020-07-24 11:06 | disposition home or self-care (01) | DRG 638 ==
LOC: M ED 10:16 → M ED INP 14:18 → ENRESERV 16:18 → M PCU 17:52 → M MSPAV 07-23 18:24
PROVIDERS: ADMIT Internal Medicine; ATTEND General Practice
PROC: 02HV33Z Insertion of Infusion Device into Superior Vena Cava, Percutaneous Approach (ICD-10-PCS; principal; 2020-07-22)
DX: E10.10 Type 1 diabetes mellitus with ketoacidosis without coma (principal); N17.9 Acute kidney failure, unspecified; J45.909 Unspecified asthma, uncomplicated; F31.9 Bipolar disorder, unspecified; F20.9 Schizophrenia, unspecified; Z91.14 Patient's other noncompliance with medication regimen; E86.0 Dehydration; Z79.4 Long term (current) use of insulin; Z79.899 Other long term (current) drug therapy; E87.6 Hypokalemia; E83.42 Hypomagnesemia; E83.39 Other disorders of phosphorus metabolism; Z20.828 Contact with and (suspected) exposure to other viral communicable diseases

== ENCOUNTER 2020-07-26 19:38 | Inpatient (IN) | payer OTHER ==
[~2020-07-26] VITALS: Ht 149.9 cm; Wt 53.8 kg
[2020-07-26] MEDS ORDERED: NS 1,000 ML IV ONE (20:00)
[2020-07-26 20:12] LABS: BASO % 0.2 % (0.0-1.0); HEMATOCRIT 34.6 % (36.0-47.0); HEMOGLOBIN 10.8 g/dl (12.0-15.5); LYMPH # 1.7 10^3/uL (1.5-5.0); LYMPH % 13.7 % (24.0-44.0); MEAN CORPUSCULAR HEMOGLOBIN 28.7 pg (27.0-33.0); MEAN CORPUSCULAR HGB CONC 31.2 g/dl (32.0-36.5); MONO # 0.7 10^3/uL (0.0-0.8); MONO % 5.4 % (0.0-5.0); NEUTROPHILS # 9.8 10^3/uL (1.5-8.5); NEUTROPHILS % 80.3 % (36.0-66.0); PLATELET COUNT, AUTOMATED 339 10^3/uL (150-450); RED BLOOD COUNT 3.76 10^6/uL (4.00-5.40); VENOUS BASE EXCESS -27.9 (-2.0-2.0); VENOUS HCO3 3.7 MEQ/L (23.0-27.0); VENOUS O2 SATURATION 80.4 % (60.0-80.0); VENOUS PARTIAL PRESSURE CO2 19.2 mmHg (38.0-50.0); VENOUS PARTIAL PRESSURE O2 53.5 mmHg (30.0-50.0); VENOUS PH 6.901 UNITS (7.330-7.430); VENOUS STANDARD HCO3 5.1 MEQ/L; VENOUS TOTAL CO2 4.3 MEQ/L (24.0-28.0); WHITE BLOOD COUNT 12.2 10^3/uL (4.0-10.0)
[2020-07-26 20:46] LABS: OSMOLALITY SERUM 324 MOSM/KG (275-295)
[2020-07-26 21:13] LABS: ACETONE/KETONE > 46.00 MG/DL (<2.81); ALBUMIN 2.9 GM/DL (3.2-5.2); ALT/SGPT 18 U/L (12-78); BILIRUBIN,DIRECT < 0.1 MG/DL (0.0-0.2); BILIRUBIN,TOTAL 0.3 MG/DL (0.2-1.0); BLOOD UREA NITROGEN 15 MG/DL (7-18); CALCIUM LEVEL 8.7 MG/DL (8.5-10.1); CARBON DIOXIDE LEVEL 4 MEQ/L (21-32); CHLORIDE LEVEL 104 MEQ/L (98-107); CREATININE FOR GFR 1.34 MG/DL (0.55-1.30); GLOMERULAR FILTRATION RATE > 60.0 (>60); GLUCOSE, FASTING 541 MG/DL (70-100); LIPASE 141 U/L (73-393); POTASSIUM SERUM 4.4 MEQ/L (3.5-5.1); SODIUM LEVEL 137 MEQ/L (136-145); TOTAL PROTEIN 6.4 GM/DL (6.4-8.2)
[2020-07-26 21:15] LABS: HEMOGLOBIN A1c 13.5 %
[2020-07-26] MEDS ORDERED: HumuLIN R (REGULAR) INSULIN (NovoLIN R) **100U/ML** PER UNIT IV ONE (21:15)
[2020-07-26] MEDS ORDERED: INSULIN IV RATE CHANGE DOCUMENTATION ML/HR XX SCH (22:00)
[2020-07-26] MEDS ORDERED: INSULIN REGULAR IN 0.9 % NACL 100 UNIT in IV 1 EA IV SCH ×2 (22:00)
[2020-07-26 22:11] LABS: RSV AMPLIFICATION NEGATIVE (NEGATIVE)
--- NOTE | 2020-07-26 23:16 | HPEPDOC ---
[facility] Medical History & Physical Date of Admission Jul 26, 2020 Date of Service: Jul 26, 2020 Attending Physician: NERY HEATH MD History and Physical CHIEF COMPLAINT: Decreased appetite and shortness of breath HISTORY OF PRESENT ILLNESS: is a 25yo female with notable PMHx of IDDMI (two recent admission for DKA: 06/26-07/01/20, 07/21-07/24/20), bipolar depression, schizophrenia, and ast hma was presented to the ED on 07/26/20 via EMS with the chief complaints of decreased appetite and shortness of breath associated with vaping. She was only discharged two days ago after a four day admission for DKA. She reports her home diabetes regimen as 28 units of Tresiba (la basal insulin), with sliding scale short acting insulin AC, and she sometimes adds an HS dose if her blood sugar is "high." Upon discharge on 07/24, she went home and ate a meal without taking any insulin since she claims to have lost her home glucometer and could not check her sugars. She woke on 07/25 and didn't feel hungry, so therefore she deferred taking her morning Tresiba dose. She ate nothing all day on the and only had some sips of water, but did vape at least 5 times. She awoke this morning (07/26) and did not eat nor take her Tresiba as she was feeling nauseated. She proceeded to vape at least four more times today and developed some mild shortness of breath afterwards with associated increased work of breathing and a productive cough of yellow sputum. She denied any associated fever or chills. During the afternoon, her became concerned that she was not eating and appeared tired. After she experienced one episode of nonbloody emesis, her subsequently called EMS. Upon presentation to ED, she was tachycardic (HR 117) with respirations around the upper teens-20, normotensive, and saturating at 100% on room air. A fingerstick blood glucose was 507 and a cyqad-gs-omhu ABG showed anion gap metabolic acidosis (pH 7.1/PCO2 13/HCO3 4.2; AG 29). Her beta hydroxybutyrate was 46, A1c was 13.5%, serum osmolality was 324. She also had leukocytosis (WBC 12.2; for reference, last WBC two days prior upon d/c was 4.2), anemia (Hgb 10.8). She was given a bolus loading dose of insulin, and at the time of admission evaluation, she was receiving her continuous insulin infusion of 5 u/hr. She was subsequently admitted under the care of the hospitalist service to the clean intensive care unit for further management of DKA requiring insulin gtt. PAST MEDICAL HISTORY: Insulin-dependent diabetes mellitus type 1, with history of medical non-/poor compliance Bipolar depression Schizophrenia Asthma PAST SURGICAL HISTORY: section SOCIAL HISTORY: . is active . She reports active use of vaping, and denies any current or former cigarette, cigar, or chewing tobacco use. She denies any current or former alcohol or illegal drug use. FAMILY HISTORY: Diabetes. Mental illness. Unspecified heart disease(s) Substance abuse ALLERGIES: Please see below. REVIEW OF SYSTEMS: CONSTITUTIONAL: Reports general malaise. Denies recent unintentional change in weight, fever, or chills HEENT: Denies change in visual acuity, blurry vision, double vision, eye pain, ear pain, tinnitus, rhinorrhea, dysphagia, or odynophagia CARDIOVASCULAR: Denies chest pain, chest pressure, or palpitations RESPIRATORY: Reports mild to moderate shortness of breath after taping today with associated increased work of breathing and productive cough of yellow sputum. Denies pleuritic chest pain GASTROINTESTINAL: Reports nausea earlier today with one episode nonbleeding emesis. Denies diarrhea, constipation, or blood in stool GENITOURINARY: Denies dysuria or hematuria NEUROLOGICAL: Denies headache, dizziness, lightheadedness, syncope, loss of consciousness, numbness or paresthesias of her extremities HEMATOLOGIC: Denies easy bleeding or easy bruising LYMPHATIC: Denies any new lumps or bumps HOME MEDICATIONS: Please see below. PHYSICAL EXAMINATION: VITAL SIGNS: Temperature 96.6, pulse 117, respiratory rate 19, blood pressure 108/65, pulse oximetry, 100 % on room air. GENERAL: Young female lying in ED bed wrapped in blankets. Overall, she seems somewhat tired but answers all questions. Alert and oriented 3. HEENT: Normocephalic, atraumatic. Noninjected, anicteric sclera. No significant conjunctival pallor. PERRLA. No pharyngeal erythema or exudate. NECK: Supple. Trachea midline. No lymphadenopathy. CARDIOVASCULAR: Tachycardic rate, regular rhythm. Normal S1, S2. No murmurs or rubs appreciated. LUNGS: Diminished tidal volume with somewhat poor respiratory effort, otherwise no adventitious breath sounds were appreciated. Symmetric chest expansion. No accessory muscle use. ABDOMEN: Soft, moderate tenderness in the right upper quadrant. There is abdominal striae. A present and somewhat hardening of skin. Umbilical he. No rigidity. Hypoactive bowel sounds. EXTREMITIES: Moving all extremities. Bilateral lower extremities free of edema with no signs of clubbing or cyanosis. 2+ radial pulses bilaterally. NEUROLOGICAL: Tired appearing, yet oriented 3. No focal neurologic deficits appreciated. Non-dysarthric speech. PSYCHIATRIC: Reserved, tired mood. Somewhat flat affect. LABORATORY DATA: Please see below. IMAGING: None to this point. MICROBIOLOGY: Please see below. ASSESSMENT & PLAN: This is a 25yo female w/ notable h/o IDDMI w/ non-compliance and repeated hospitalizations for DKA, bipolar depression, schizophrenia, and asthma who presented on 07/26/20 with decreased appetite, general malaise, non-bloody emesis x1, and sob post-vaping. She was found to be in DKA once again (sGlu 500s, pH 7.1, beta HB > 46, AG 29) with positive SIRS criteria (WBC 12.2, HR 117) and was subsequently admitted to ICU. #Diabetic ketoacidosis 2/2 medication non-compliance -Two recent admissions for DKA - - pt was only dc'd two days ago from latest visit -At px: sGlu 541, AG 29, beta HB > 46, pH 7.1/pCO2 13/HCO3 4.2, sOsm 324; K 4.4, sNa 137 (corrected 144) -s/p bolus insulin dose and subsequent initiation of insulin infusion in ED -IVF in form of 0.45 NS w/ 20 mEq KCl as pt's corrected sNa was 144 -Insulin gtt with protocol continued on admission to ICU -accuckecks q1h; BMP, Mg, Phos, sOsm, VBG all ordered q4h -NPO except meds -diabetic counseling and dietary consultation #Positive SIRS Critera -leukocytosis (WBC 12.2) and tachycardia (HR 117) -likely a reaction to inflammatory process a/w DKA and dehydration from recent poor po intake and resulting dehydration #Acute Kidney Injury -sCr 1.3; baseline appears to be 0.8-1 -likely pre-renal and 2/2 dehydration from poor po intake -IVF running (0.45NS) #Normocytic hypochromic anemia -Hgb 10.8; on recent admission two days ago, last Hgb was 9.3 -Fe panel orderd -repeat morning cbc orderd #History of bipolar depression and schizophrenia -per med rec, pt is not currently taking any anti-depressive or anti-psychotic medications -per exam today and review of recent admission documentation, pt appears to be stable as it relates to behavior health other than aforementioned diabetic medication non-compliance #Active vaping use -likely contributing to pt's recent associated mild sob and increased work of breathing, as well as productive cough -pt counseled on the detrimental effects of continued use in the setting of her asthma and the unknown full extent of associated respiratory side effects #Reported history of asthma -continued pt's home rescue albuterol inhaler #DVT prophylaxis: sc lovenox Disposition: admission to clean ICU with plan to discharge home upon resolution of DKA. Vital Signs Vital Signs Date Time Temp Pulse Resp B/P (MAP) Pulse Ox O2 Delivery O2 Flow Rate FiO2 07/26/20 23:00 111 19 106/70 (82) 100 Room Air 07/26/20 20:00 96.6 Laboratory Data Labs 24H Laboratory Tests 2 07/26/20 19:51: Bedside Glucose (Misc Panel) 507*H 07/26/20 20:04: Immature Granulocyte % (Auto) 0.4, Neutrophils (%) (Auto) 80.3H, Lymphocytes (%) (Auto) 13.7L, Monocytes (%) (Auto) 5.4H, Eosinophils (%) (Auto) 0.0, Basophils (%) (Auto) 0.2, Neutrophils # (Auto) 9.8H, Lymphocytes # (Auto) 1.7, Monocytes # (Auto) 0.7, Eosinophils # (Auto) 0.0, Basophils # (Auto) 0.0, Nucleated Red Blood Cells % (auto) 0.0, Blood Gas Bicarbonate Standard 5.1, Venous Blood pH 6.901L, Venous Blood Partial Pressure CO2 19.2L, Venous Blood Partial Pressure O2 53.5H, Venous Blood Total Carbon Dioxide 4.3L, Venous Blood HCO3 3.7L, Venous Blood Oxygen Saturation 80.4H, Venous Blood Base Excess -27.9L, Anion Gap 29H, Glomerular Filtration Rate > 60.0, Estimated Mean Plasma Glucose 341H, Hemoglobin A1c 13.5, Osmolality 324H, Calcium Level 8.7, Total Bilirubin 0.3, Direct Bilirubin < 0.1, Aspartate Amino Transf (AST/SGOT) 7, Alanine Baca otransferase (ALT/SGPT) 18, Alkaline Phosphatase 115, Total Protein 6.4, Albumin 2.9L, Albumin/Globulin Ratio 0.8L, Lipase 141, B-Hydroxybutyrate > 46.00H 07/26/20 20:11: POC Glucose (Misc Panel) 528*H, POC Sodium (Misc Panel) 134L, POC Potassium (Misc Panel) 4.2, POC Chloride (Misc Panel) 108, POC Total CO2 (Misc Panel) 5.0L, POC Blood Urea Nitrogen (Misc Panel 14, POC Ionized Calcium (Misc Panel) 5.5H, POC Creatinine (Misc Panel) 0.9, POC Hematocrit (Misc Panel) 37.0L 07/26/20 20:14: POC Beta HCG, Quantitative < 5.0 07/26/20 20:57: Bedside Glucose (Misc Panel) 415H 07/26/20 21:24: Coronavirus (COVID-19)(PCR) NEGATIVE, Influenza Type A (RT-PCR) NEGATIVE, Influenza Type B (RT-PCR) NEGATIVE, Respiratory Syncytial Virus (PCR) NEGATIVE 07/26/20 21:39: POC pH (Misc Panel) 7.103*L, POC Base Excess (Misc Panel) -25.0L, POC Saturated Percent O2 (Misc) 98, POC pO2 (Misc Panel) 147.0H, POC pCO2 (Misc Panel) 13.4*L, POC HCO3 (Misc Panel) 4.2L, POC Total CO2 (Misc Panel) < 5.0L 07/26/20 22:04: Bedside Glucose (Misc Panel) 332H 07/26/20 23:04: Bedside Glucose (Misc Panel) 241H CBC/BMP Laboratory Tests 07/26/20 20:04 Home Medications Scheduled Insulin Degludec (Tresiba Flextouch U-100) 100 Unit/1 Ml Insuln.pen, 14 UNIT SC QPM Insulin Lispro (Humalog Kwikpen U-100) 100 Unit/1 Ml Insuln.pen, 1 DOSE SC AC PER SLIDING SCALE Scheduled PRN Albuterol Sulfate (Ventolin Hfa) 18 Gm Hfa.aer.ad, 2 PUFFS INH Q6H PRN for SOB/WHEEZING Allergies Coded Allergies: No Known Allergies (Unverified , 07/02/20) A-FIB/CHADSVASC A-FIB History Current/History of A-Fib/PAF?: No Current PO Anticoag Therapy: No GME ATTESTATION GME ATTESTATION My faculty preceptor for this patient encounter was physically present during the encounter and was fully available. All aspects of the patient interview, examination, medical decision making process, and medical care plan development were reviewed and approved by the faculty preceptor. The faculty preceptor is aware and concurs with the plan as stated in the body of this note and will attest to such by his/her cosignature. ATTENDING NOTE TIME OF SERVICE 1015 PM is a 25 yr old w a hx of DM1, Asthma, Bipolar Disorder and Depression who presented w c/o dyspnea and will be admitted for SIRS & DKA 2/2 non-complia nce #DKA #NN Anemia Rest per 's H&P HAJA NAYAK D.O. Jul 26, 2020 23:16 NERY HEATH MD Jul 26, 2020 23:41
[2020-07-27] VITALS (7 sets, daily range): BP systolic 98–118; BP diastolic 57–73
[2020-07-27] MEDS ORDERED: ACETAMINOPHEN TAB 650MG DOSE (2X325MG) PO PRN
[2020-07-27] MEDS ORDERED: MAALOX 30 ML SUSP *UDC PO PRN
[2020-07-27] MEDS ORDERED: MOM 30ML SUSPENSION UDC PO PRN
[2020-07-27] MEDS ORDERED: INSULIN REGULAR IN 0.9 % NACL 100 UNIT in IV 1 EA IV SCH ×2 (00:01)
[2020-07-27] MEDS ORDERED: ALBUTEROL 90 MCG/ACT 8GM HFA INHALER INH PRN (00:15)
[2020-07-27] MEDS ORDERED: KCL 20MEQ IN 0.45NS 1000ML 1,000 ML IV SCH ×2 (00:30)
[2020-07-27 00:45] LABS: VENOUS BASE EXCESS -16.5 (-2.0-2.0); VENOUS HCO3 11.2 MEQ/L (23.0-27.0); VENOUS O2 SATURATION 80.6 % (60.0-80.0); VENOUS PARTIAL PRESSURE CO2 33.1 mmHg (38.0-50.0); VENOUS PARTIAL PRESSURE O2 46.5 mmHg (30.0-50.0); VENOUS PH 7.148 UNITS (7.330-7.430); VENOUS STANDARD HCO3 11.6 MEQ/L; VENOUS TOTAL CO2 12.2 MEQ/L (24.0-28.0)
[2020-07-27] MEDS ORDERED: ONDANSETRON 4MG/2ML VIAL IV PRN (00:45)
[2020-07-27] MEDS: INSULIN IV RATE CHANGE DOCUMENTATION ML/HR XX SCH ×4 (00:57→08:15)
[2020-07-27] MEDS ORDERED: POTASSIUM CHLORIDE INJ 20 MEQ in D5W/0.45% SODIUM CHLORIDE 1,000 ML IV SCH (01:15)
[2020-07-27] MEDS: KCL 20MEQ IN D5/0.45NS 1000ML 1,000 ML IV SCH ×4 (01:19→18:00)
[2020-07-27 02:03] LABS: OSMOLALITY SERUM 311 MOSM/KG (275-295)
[2020-07-27 02:25] LABS: BLOOD UREA NITROGEN 11 MG/DL (7-18); CALCIUM LEVEL 8.1 MG/DL (8.5-10.1); CARBON DIOXIDE LEVEL 11 MEQ/L (21-32); CHLORIDE LEVEL 111 MEQ/L (98-107); FERRITIN 280 NG/ML (8-252); GLOMERULAR FILTRATION RATE > 60.0 (>60); GLUCOSE, FASTING 152 MG/DL (70-100); IRON (FE) 36 UG/DL (50-170); PERCENT SATURATION 18.2 % (13.2-45.0); POTASSIUM SERUM 4.2 MEQ/L (3.5-5.1); SODIUM LEVEL 140 MEQ/L (136-145); TOTAL IRON BINDING CAPACITY 198 UG/DL (250-450)
[2020-07-27 04:24] LABS: HEMATOCRIT 25.3 % (36.0-47.0); MEAN CORPUSCULAR HEMOGLOBIN 28.9 pg (27.0-33.0); MEAN CORPUSCULAR HGB CONC 33.6 g/dl (32.0-36.5); MEAN CORPUSCULAR VOLUME 86.1 fl (80.0-96.0); PLATELET COUNT, AUTOMATED 255 10^3/uL (150-450); RED BLOOD COUNT 2.94 10^6/uL (4.00-5.40); WHITE BLOOD COUNT 8.2 10^3/uL (4.0-10.0)
[2020-07-27 04:28] LABS: HEMOGLOBIN 8.5 g/dl (12.0-15.5)
[2020-07-27 04:38] LABS: VENOUS BASE EXCESS -12.2 (-2.0-2.0); VENOUS HCO3 14.3 MEQ/L (23.0-27.0); VENOUS O2 SATURATION 98.9 % (60.0-80.0); VENOUS PARTIAL PRESSURE CO2 34.8 mmHg (38.0-50.0); VENOUS PARTIAL PRESSURE O2 181.8 mmHg (30.0-50.0); VENOUS PH 7.231 UNITS (7.330-7.430); VENOUS STANDARD HCO3 14.8 MEQ/L; VENOUS TOTAL CO2 15.3 MEQ/L (24.0-28.0)
[2020-07-27 05:08] LABS: OSMOLALITY SERUM 290 MOSM/KG (275-295)
[2020-07-27 05:09] LABS: BLOOD UREA NITROGEN 8 MG/DL (7-18); CALCIUM LEVEL 7.9 MG/DL (8.5-10.1); CARBON DIOXIDE LEVEL 16 MEQ/L (21-32); CHLORIDE LEVEL 112 MEQ/L (98-107); CREATININE FOR GFR 0.84 MG/DL (0.55-1.30); GLOMERULAR FILTRATION RATE > 60.0 (>60); GLUCOSE, FASTING 195 MG/DL (70-100); MAGNESIUM LEVEL 1.8 MG/DL (1.8-2.4); PHOSPHORUS LEVEL 1.2 MG/DL (2.5-4.9); POTASSIUM SERUM 3.8 MEQ/L (3.5-5.1); SODIUM LEVEL 139 MEQ/L (136-145)
[2020-07-27] MEDS: K-PHOS ORIGINAL (POT.ACID PHOSPHATE) 500MG TAB PO SCH ×2 (06:26→09:08)
[2020-07-27 08:09] LABS: VENOUS BASE EXCESS -8.6 (-2.0-2.0); VENOUS HCO3 15.9 MEQ/L (23.0-27.0); VENOUS O2 SATURATION 98.9 % (60.0-80.0); VENOUS PARTIAL PRESSURE CO2 29.4 mmHg (38.0-50.0); VENOUS PARTIAL PRESSURE O2 159.5 mmHg (30.0-50.0); VENOUS PH 7.352 UNITS (7.330-7.430); VENOUS STANDARD HCO3 17.5 MEQ/L; VENOUS TOTAL CO2 16.8 MEQ/L (24.0-28.0)
--- NOTE | 2020-07-27 08:25 | ECGEPIP ---
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
[2020-07-27 08:33] LABS: BLOOD UREA NITROGEN 7 MG/DL (7-18); CALCIUM LEVEL 7.6 MG/DL (8.5-10.1); CARBON DIOXIDE LEVEL 18 MEQ/L (21-32); CHLORIDE LEVEL 110 MEQ/L (98-107); GLOMERULAR FILTRATION RATE > 60.0 (>60); GLUCOSE, FASTING 149 MG/DL (70-100); MAGNESIUM LEVEL 1.7 MG/DL (1.8-2.4); PHOSPHORUS LEVEL 1.1 MG/DL (2.5-4.9); POTASSIUM SERUM 3.9 MEQ/L (3.5-5.1); SODIUM LEVEL 137 MEQ/L (136-145)
[2020-07-27 08:44] LABS: OSMOLALITY SERUM 291 MOSM/KG (275-295)
[2020-07-27] MEDS: PANTOPRAZOLE 40MG VIAL (C9113 PER 1) IV SCH (09:07)
[2020-07-27] MEDS: ENOXAPARIN 40MG/0.4ML SYRINGE (J1650 PER 10MG) SC SCH (09:07)
[2020-07-27] MEDS ORDERED: LEVEMIR (INSULIN DETEMIR) 1 UNITS/0.01ML SC STA (09:57)
[2020-07-27] MEDS ORDERED: MAGNESIUM GLUCONATE 500 MG TAB PO ONE (10:00)
[2020-07-27] MEDS: LEVEMIR (INSULIN DETEMIR) 1 UNITS/0.01ML SC SCH ×2 (10:14→22:23)
[2020-07-27] MEDS ORDERED: DEXTROSE 50% 50 ML SYRINGE IV PRN (10:15)
[2020-07-27] MEDS ORDERED: GLUCOSE 4GM CHEW TABLET PO PRN (10:15)
[2020-07-27] MEDS ORDERED: GLUCAGON INJ 1MG VIAL SC PRN (10:15)
--- NOTE | 2020-07-27 10:24 | IPNPDOC ---
Text Note Date of Service The patient was seen on 07/27/20. NOTE Subjective: Patient was able to eat breakfast in the morning. No vomiting, no nausea Objective: GENERAL APPEARANCE: NAD HEENT: no scleral icterus, no JVD, EOMI CARDIOVASCULAR: S1S2 LUNGS: CTA ABDOMEN: soft & not tender w palpitation MUSCULOSKELETAL: no cyanosis, no swelling INTEGUMENT: no generalized palor NEUROLOGICAL: cranial nerve function from 2-12 intact intact, follows commands, speech not dysarthric ASSESSMENT & PLAN: Patient is a 25yo female w/ notable h/o IDDMI w/ non-compliance and repeated hospitalizations for DKA, bipolar depression, schizophrenia, and asthma who presented on 07/26/20 with decreased appetite, general malaise, non-bloody emesis x1, and sob post-vaping. She was found to be in DKA once again. Diabetic ketoacidosis 2/2 medication non-compliance DKA resolved. Patient received insulin drip. Insulin sliding scale Diabetes diet SIRS Resolved ALEKS resolved Normocytic anemia Hemoglobin stable Follow-up with PCP in the outpatient settings History of bipolar depression and schizophrenia Patient noncompliant to her psych medications I will ask psych evaluation after initial stabilization Active vaping use pt counseled on the detrimental effects of vaping History of asthma Continue home inhalers VS,Fishbone, I+O VS, Fishbone, I+O Laboratory Tests 07/26/20 20:04 07/27/20 00:40 07/27/20 04:18 07/27/20 07:52 Vital Signs Date Time Temp Pulse Resp B/P (MAP) Pulse Ox O2 Delivery O2 Flow Rate FiO2 07/27/20 08:00 99.1 118 20 106/57 (77) 100 Room Air I&O- Last 24 Hours up to 6 AM 07/27/20 06:00 Intake Total 2020 ml Output Total 0 ml Balance 2020 ml KARINA LLAMAS DO Jul 27, 2020 10:24
[2020-07-27 12:05] LABS: VENOUS BASE EXCESS -9.3 (-2.0-2.0); VENOUS HCO3 13.6 MEQ/L (23.0-27.0); VENOUS O2 SATURATION 98.9 % (60.0-80.0); VENOUS PARTIAL PRESSURE CO2 21.6 mmHg (38.0-50.0); VENOUS PARTIAL PRESSURE O2 165.2 mmHg (30.0-50.0); VENOUS PH 7.417 UNITS (7.330-7.430); VENOUS STANDARD HCO3 16.9 MEQ/L; VENOUS TOTAL CO2 14.3 MEQ/L (24.0-28.0)
[2020-07-27] MEDS: HumaLOG INSULIN (NovoLOG) PER UNIT SC SCH ×2 (12:22→18:01)
[2020-07-27 12:33] LABS: BLOOD UREA NITROGEN 6 MG/DL (7-18); CALCIUM LEVEL 7.6 MG/DL (8.5-10.1); CARBON DIOXIDE LEVEL 17 MEQ/L (21-32); CHLORIDE LEVEL 111 MEQ/L (98-107); CREATININE FOR GFR 0.77 MG/DL (0.55-1.30); GLOMERULAR FILTRATION RATE > 60.0 (>60); GLUCOSE, FASTING 205 MG/DL (70-100); MAGNESIUM LEVEL 1.6 MG/DL (1.8-2.4); PHOSPHORUS LEVEL 1.8 MG/DL (2.5-4.9); POTASSIUM SERUM 4.2 MEQ/L (3.5-5.1); SODIUM LEVEL 137 MEQ/L (136-145)
[2020-07-27 12:35] LABS: OSMOLALITY SERUM 285 MOSM/KG (275-295)
[2020-07-27 16:02] LABS: VENOUS BASE EXCESS -5.6 (-2.0-2.0); VENOUS HCO3 18.3 MEQ/L (23.0-27.0); VENOUS O2 SATURATION 98.9 % (60.0-80.0); VENOUS PARTIAL PRESSURE CO2 30.1 mmHg (38.0-50.0); VENOUS PARTIAL PRESSURE O2 151.2 mmHg (30.0-50.0); VENOUS PH 7.401 UNITS (7.330-7.430); VENOUS STANDARD HCO3 19.8 MEQ/L; VENOUS TOTAL CO2 19.2 MEQ/L (24.0-28.0)
[2020-07-27 16:29] LABS: CREATININE FOR GFR 0.86 MG/DL (0.55-1.30); GLOMERULAR FILTRATION RATE > 60.0 (>60)
[2020-07-27 16:32] LABS: BLOOD UREA NITROGEN 3 MG/DL (7-18); CALCIUM LEVEL 8.3 MG/DL (8.5-10.1); CARBON DIOXIDE LEVEL 18 MEQ/L (21-32); CHLORIDE LEVEL 110 MEQ/L (98-107); CREATININE FOR GFR 0.88 MG/DL (0.55-1.30); GLOMERULAR FILTRATION RATE > 60.0 (>60); GLUCOSE, FASTING 163 MG/DL (70-100); PHOSPHORUS LEVEL 1.8 MG/DL (2.5-4.9); SODIUM LEVEL 137 MEQ/L (136-145)
[2020-07-27 16:42] LABS: OSMOLALITY SERUM 281 MOSM/KG (275-295)
[2020-07-27 20:09] LABS: VENOUS HCO3 17.5 MEQ/L (23.0-27.0); VENOUS O2 SATURATION 98.6 % (60.0-80.0); VENOUS PARTIAL PRESSURE CO2 28.1 mmHg (38.0-50.0); VENOUS PARTIAL PRESSURE O2 184.8 mmHg (30.0-50.0); VENOUS PH 7.413 UNITS (7.330-7.430); VENOUS STANDARD HCO3 19.5 MEQ/L; VENOUS TOTAL CO2 18.4 MEQ/L (24.0-28.0)
[2020-07-27 20:35] LABS: CREATININE FOR GFR 1.19 MG/DL (0.55-1.30); GLOMERULAR FILTRATION RATE > 60.0 (>60)
[2020-07-27 20:41] LABS: OSMOLALITY SERUM 282 MOSM/KG (275-295)
[2020-07-27 20:52] LABS: BLOOD UREA NITROGEN 3 MG/DL (7-18); CALCIUM LEVEL 8.1 MG/DL (8.5-10.1); CARBON DIOXIDE LEVEL 17 MEQ/L (21-32); CHLORIDE LEVEL 110 MEQ/L (98-107); CREATININE FOR GFR 1.21 MG/DL (0.55-1.30); GLOMERULAR FILTRATION RATE > 60.0 (>60); GLUCOSE, FASTING 133 MG/DL (70-100); PHOSPHORUS LEVEL 1.3 MG/DL (2.5-4.9); POTASSIUM SERUM 4.1 MEQ/L (3.5-5.1); SODIUM LEVEL 140 MEQ/L (136-145)
[2020-07-27] MEDS ORDERED: HumaLOG INSULIN (NovoLOG) PER UNIT SC SCH (21:00)
[2020-07-28] MEDS: KCL 20MEQ IN D5/0.45NS 1000ML 1,000 ML IV SCH (01:50)
[2020-07-28 06:00] VITALS: BP 100/64
[2020-07-28] MEDS: HumaLOG INSULIN (NovoLOG) PER UNIT SC SCH ×2 (07:30→12:34)
[2020-07-28 08:56] LABS: EOS % 0.6 % (0.0-3.0); HEMOGLOBIN 8.8 g/dl (12.0-15.5); LYMPH # 2.2 10^3/uL (1.5-5.0); LYMPH % 44.9 % (24.0-44.0); MEAN CORPUSCULAR HGB CONC 35.2 g/dl (32.0-36.5); MEAN CORPUSCULAR VOLUME 85.3 fl (80.0-96.0); MONO # 0.7 10^3/uL (0.0-0.8); MONO % 14.1 % (0.0-5.0); NEUTROPHILS # 1.9 10^3/uL (1.5-8.5); PLATELET COUNT, AUTOMATED 282 10^3/uL (150-450); RED BLOOD COUNT 2.93 10^6/uL (4.00-5.40); WHITE BLOOD COUNT 4.8 10^3/uL (4.0-10.0)
[2020-07-28] MEDS: ENOXAPARIN 40MG/0.4ML SYRINGE (J1650 PER 10MG) SC SCH (09:00)
[2020-07-28] MEDS: LEVEMIR (INSULIN DETEMIR) 1 UNITS/0.01ML SC SCH (09:31)
[2020-07-28] MEDS: PANTOPRAZOLE 40MG VIAL (C9113 PER 1) IV SCH (09:31)
[2020-07-28 09:34] LABS: BLOOD UREA NITROGEN 4 MG/DL (7-18); CALCIUM LEVEL 8.1 MG/DL (8.5-10.1); CARBON DIOXIDE LEVEL 25 MEQ/L (21-32); CHLORIDE LEVEL 109 MEQ/L (98-107); CREATININE FOR GFR 0.79 MG/DL (0.55-1.30); GLOMERULAR FILTRATION RATE > 60.0 (>60); GLUCOSE, FASTING 241 MG/DL (70-100); MAGNESIUM LEVEL 1.9 MG/DL (1.8-2.4); POTASSIUM SERUM 4.4 MEQ/L (3.5-5.1); SODIUM LEVEL 141 MEQ/L (136-145)
[2020-07-28] MEDS ORDERED: BLOOKIT21 XX (09:59)
[2020-07-28 10:15] LABS: FOLATE 9.9 NG/ML; VITAMIN B12 LEVEL 434 PG/ML
--- NOTE | 2020-07-28 12:46 | DS.PDOC ---
Discharge Summary General Date of Admission Jul 26, 2020 at 22:00 Date of Discharge 07/28/20 Discharge Summary PROCEDURES PERFORMED DURING STAY: [None]. ADMITTING DIAGNOSES: Diabetic ketoacidosis 2/2 medication non-compliance SIRS Normocytic anemia History of bipolar depression and schizophrenia Active vaping use History of asthma DISCHARGE DIAGNOSES: Diabetic ketoacidosis 2/2 medication non-compliance SIRS Normocytic anemia History of bipolar depression and schizophrenia Active vaping use History of asthma COMPLICATIONS/CHIEF COMPLAINT: High Blood Sugar. HISTORY OF PRESENT ILLNESS: Patient is a 25yo female w/ notable h/o IDDMI w/ non -compliance and repeated hospitalizations for DKA, bipolar depression, schizophrenia, and asthma who presented on 07/26/20 with decreased appetite, general malaise, non-bloody emesis x1, and sob post-vaping. She was found to be in DKA once again. HOSPITAL COURSE: During hospital stay following issue addressed Diabetic ketoacidosis 2/2 medication non-compliance DKA resolved. Patient received insulin drip. Insulin sliding scale Diabetes diet SIRS Resolved ALEKS resolved Normocytic anemia Hemoglobin stable Follow-up with PCP in the outpatient settings History of bipolar depression and schizophrenia Patient noncompliant to her psych medications I will ask psych evaluation after initial stabilization Active vaping use pt counseled on the detrimental effects of vaping History of asthma Continue home inhalers DISCHARGE MEDICATIONS: Please see below. ALLERGIES: Please see below. PHYSICAL EXAMINATION ON DISCHARGE: VITAL SIGNS: Please see below. GENERAL: GENERAL APPEARANCE: NAD HEENT: no scleral icterus, no JVD, EOMI CARDIOVASCULAR: S1S2 LUNGS: CTA ABDOMEN: soft & not tender w palpitation MUSCULOSKELETAL: no cyanosis, no swelling INTEGUMENT: no generalized palor NEUROLOGICAL: cranial nerve function from 2-12 intact intact, follows commands, speech not dysarthric LABORATORY DATA: Please see below. PROGNOSIS: Good ACTIVITY: [As tolerated]. DIET: Diabetes diet DISPOSITION: . 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 TIME SPENT ON DISCHARGE: Greater than 25 minutes. Vital Signs/I&Os Vital Signs Date Time Temp Pulse Resp B/P (MAP) Pulse Ox O2 Delivery O2 Flow Rate FiO2 07/28/20 06:00 98.1 90 18 100/64 99 Room Air I&O- Last 24 Hours up to 6 AM 07/28/20 06:00 Intake Total 2236 ml Balance 2236 ml Laboratory Data Labs 24H Laboratory Tests 2 07/27/20 15:55: Blood Gas Bicarbonate Standard 19.8, Venous Blood pH 7.401, Venous Blood Partial Pressure CO2 30.1L, Venous Blood Partial Pressure O2 151.2H, Venous Blood Total Carbon Dioxide 19.2L, Venous Blood HCO3 18.3L, Venous Blood Oxygen Saturation 98.9H, Venous Blood Base Excess -5.6L, Anion Gap 9, Glomerular Filtration Rate > 60.0, Osmolality 281, Calcium Level 8.3L, Phosphorus Level 1.8L, Magnesium Level 1.6L 07/27/20 19:58: Blood Gas Bicarbonate Standard 19.5, Venous Blood pH 7.413, Venous Blood Partial Pressure CO2 28.1L, Venous Blood Partial Pressure O2 184.8H, Venous Blood Total Carbon Dioxide 18.4L, Venous Blood HCO3 17.5L, Venous Blood Oxygen Saturation 98.6H, Venous Blood Base Excess -6.0L, Anion Gap 13, Glomerular Filtration Rate > 60.0, Osmolality 282, Calcium Level 8.1L, Phosphorus Level 1.3#L, Magnesium Level 1.7L 07/27/20 20:03: Bedside Glucose (Misc Panel) 135H 07/28/20 06:44: Bedside Glucose (Misc Panel) 114H 07/28/20 08:24: Immature Granulocyte % (Auto) 0.4, Neutrophils (%) (Auto) 40.0, Lymphocytes (%) (Auto) 44.9H, Monocytes (%) (Auto) 14.1H, Eosinophils (%) (Auto) 0.6, Basophils (%) (Auto) 0.0, Neutrophils # (Auto) 1.9, Lymphocytes # (Auto) 2.2, Monocytes # (Auto) 0.7, Eosinophils # (Auto) 0.0, Basophils # (Auto) 0.0, Nucleated Red Blood Cells % (auto) 0.0, Anion Gap 7L, Glomerular Filtration Rate > 60.0, Anish cium Level 8.1L, Phosphorus Level 2.0#L, Magnesium Level 1.9 07/28/20 10:58: Lab Scanned Report Miscellaneous Lab 07/28/20 11:28: Bedside Glucose (Misc Panel) 317H CBC/BMP Laboratory Tests 07/27/20 15:55 07/27/20 19:58 07/28/20 08:24 FSBS Laboratory Tests Test 07/27/20 20:03 07/28/20 06:44 07/28/20 11:28 Range/Units Bedside Glucose (Misc Panel) 135 114 317 70-105 MG/DL Microbiology Microbiology 07/27/20 Blood Culture - Preliminary, Resulted No growth after 24 hours . All specim... Discharge Medications Scheduled Insulin Degludec (Tresiba Flextouch U-100) 100 Unit/1 Ml Insuln.pen, 14 UNIT SC QPM, (Reported) Insulin Lispro (Humalog Kwikpen U-100) 100 Unit/1 Ml Insuln.pen, 1 DOSE SC AC, (Reported) PER SLIDING SCALE Scheduled PRN Albuterol Sulfate (Ventolin Hfa) 18 Gm Hfa.aer.ad, 2 PUFFS INH Q6H PRN for SOB/WHEEZING, (Reported) Allergies Coded Allergies: No Known Allergies (Unverified , 07/02/20) KARINA LLAMAS DO Jul 28, 2020 12:46
== END 2020-07-28 12:45 | disposition home or self-care (01) | DRG 638 ==
LOC: M ED 19:38 → M ED INP 22:00 → M PCU 07-27 00:25 → M MS5PR 07-27 12:50
PROVIDERS: ADMIT Internal Medicine; ATTEND Internal Medicine
DX: E11.10 Type 2 diabetes mellitus with ketoacidosis without coma (principal); N17.9 Acute kidney failure, unspecified; Z91.14 Patient's other noncompliance with medication regimen; J45.909 Unspecified asthma, uncomplicated; F17.290 Nicotine dependence, other tobacco product, uncomplicated; F31.9 Bipolar disorder, unspecified; F20.9 Schizophrenia, unspecified; D64.9 Anemia, unspecified; Z79.4 Long term (current) use of insulin

== ENCOUNTER 2021-04-22 11:03 | Inpatient (IN) | payer OTHER ==
[~2021-04-22] VITALS: Ht 149.9 cm; Wt 64.9 kg
[~2021-04-22 11:03] MED LIST changes: +BLOOKIT21 XX; +DOK1CAP4 PO; -DOK1CAP7 PO; +ERGO500029 PO; +PLEC3TAB PO; -TRUL3TAB PO; -VITA50005 PO
[2021-04-22 13:02] LABS: HEMATOCRIT 41.7 % (36.0-47.0); HEMOGLOBIN 13.9 g/dl (12.0-15.5); MEAN CORPUSCULAR HEMOGLOBIN 28.9 pg (27.0-33.0); MEAN CORPUSCULAR HGB CONC 33.3 g/dl (32.0-36.5); MEAN CORPUSCULAR VOLUME 86.7 fl (80.0-96.0); PLATELET COUNT, AUTOMATED 330 10^3/uL (150-450); RED BLOOD COUNT 4.81 10^6/uL (4.00-5.40); WHITE BLOOD COUNT 7.2 10^3/uL (4.0-10.0)
[2021-04-22 13:19] LABS: HCG, SERUM QUALITATIVE NEGATIVE (NEGATIVE)
[2021-04-22 13:35] LABS: ACETAMINOPHEN LEVEL < 2.0 UG/ML (10.0-30.0); ALBUMIN 3.6 GM/DL (3.2-5.2); ALT/SGPT 16 U/L (12-78); BILIRUBIN,DIRECT 0.1 MG/DL (0.0-0.2); BILIRUBIN,TOTAL 0.4 MG/DL (0.2-1.0); BLOOD UREA NITROGEN 15 MG/DL (7-18); CALCIUM LEVEL 9.3 MG/DL (8.5-10.1); CARBON DIOXIDE LEVEL 25 MEQ/L (21-32); CHLORIDE LEVEL 104 MEQ/L (98-107); CREATININE FOR GFR 0.79 MG/DL (0.55-1.30); ETHYL ALCOHOL (ETHANOL) < 0.003 % (0.000-0.010); GLOMERULAR FILTRATION RATE > 60.0 (>60); GLUCOSE, FASTING 319 MG/DL (70-100); POTASSIUM SERUM 4.7 MEQ/L (3.5-5.1); SALICYLATE LEVEL < 1.7 MG/DL (5.0-30.0); SODIUM LEVEL 136 MEQ/L (136-145)
[2021-04-22 13:36] LABS: AMPHETAMINES LEVEL URINE NEGATIVE (NEGATIVE); BARBITURATES URINE NEGATIVE (NEGATIVE); BENZODIAZEPINES URINE NEGATIVE (NEGATIVE); CANNABINOIDS URINE POSITIVE (NEGATIVE); COCAINE METABOLITE URINE NEGATIVE (NEGATIVE); METHADONE URINE NEGATIVE (NEGATIVE); OPIATES URINE NEGATIVE (NEGATIVE); PHENCYCLIDINE URINE NEGATIVE (NEGATIVE)
[2021-04-22] MEDS: HumaLOG INSULIN (NovoLOG) PER UNIT SC SCH ×3 (14:51→22:16)
[2021-04-22 15:15] LABS: RSV AMPLIFICATION NEGATIVE (NEGATIVE)
[2021-04-22] MEDS ORDERED: PROAAER10 PO (15:56)
[2021-04-22] MEDS ORDERED: ERGO500029 PO (15:56)
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
[2021-04-22] MEDS ORDERED: ALBU83IN NEB (16:01)
[2021-04-22] MEDS ORDERED: HOME MED LIST COMPLETE! XX SCH (16:05)
[2021-04-22] MEDS ORDERED: MOM 30ML SUSPENSION UDC PO PRN (19:35)
[2021-04-22] MEDS ORDERED: NICOTINE 21MG/24HR 1 EA TRANSDERMAL TD PRN (19:35)
[2021-04-22] MEDS ORDERED: OLANZapine ORAL DISINTEGRATING TAB 5MG PO PRN (19:35)
[2021-04-22] MEDS ORDERED: traZODone 50 MG TAB PO PRN (19:35)
[2021-04-22] MEDS ORDERED: GLUCAGON INJ 1MG VIAL SC PRN (19:35)
[2021-04-22] MEDS ORDERED: DEXTROSE 50% 50 ML SYRINGE IV PRN (19:35)
[2021-04-22] MEDS ORDERED: GLUCOSE 4GM CHEW TABLET PO PRN (19:35)
[2021-04-22] MEDS ORDERED: diphenhydrAMINE 25MG CAP PO PRN (19:35)
[2021-04-22] MEDS ORDERED: MAALOX 30 ML SUSP *UDC PO PRN (19:35)
[2021-04-22 20:54] VITALS: BP 164/116
[2021-04-22] MEDS ORDERED: ALBUTEROL 90 MCG/ACT 8GM HFA INHALER INH PRN (22:10)
[2021-04-22] MEDS ORDERED: ALBUTEROL SULFATE 2.5 MG/0.5 ML INH NEB SOLN NEB PRN (22:10)
[2021-04-22] MEDS ORDERED: VITAMIN D 50,000 UNITS CAPSULE (ERGOCALCIFEROL 1.25MG) PO SCH (22:45)
[2021-04-23 06:40] VITALS: BP 133/72
[2021-04-23] MEDS: HumaLOG INSULIN (NovoLOG) PER UNIT SC SCH ×4 (06:44→21:00)
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
[2021-04-23] MEDS ORDERED: LEVEMIR (INSULIN DETEMIR) 1 UNITS/0.01ML SC ONE (15:35)
[2021-04-23] MEDS: ALBUTEROL 90 MCG/ACT 8GM HFA INHALER INH PRN (16:39)
--- NOTE | 2021-04-23 16:40 | HPEPDOC ---
[facility] Medical History & Physical Date of Admission Apr 22, 2021 Date of Service: Apr 23, 2021 History and Physical Chief complaint: Presented to the emergency room with complaints of suicidal ideation History of present illness: Patient is a 26-year-old female with a past medical history of IDDM1, Asthma, Bipolar depression , who presented to the emergency room with complaints of suicidal ideation. Patient was admitted to the inpatient mental health unit under the care of psychiatry. Hospitalist services consulted for medical screening evaluation. Patient denies any headache, nausea, vomiting, reports some pleuritic chest pain described as tightness reported that she had shortness of breath earlier that was relieved with her albuterol inhaler. She denies any cough or palpitations. Patient denies any abdominal pain or diarrhea. She reports she is constipated. Her last bowel movement was greater than 30 days ago. Patient reports her appetite is fairly normal and has had some weight gain. She denies any urinary discomfort. Denies any recent fevers or chills. Past Medical History: IDDM1 Asthma Bipolar depression Past Surgical History: section Allergies: See below Medications: See below Family History: - Family history of diabetes and mental illness Social History: - Patient reports that she quit smoking. Occasionally uses alcohol and occasionally uses marijuana - Denies recent travel or sick contacts - Lives with and son - Occupation; currently unemployed Review of Systems: 10 point review of systems complete, all negative otherwise stated in HPI Physical exam: - Vitals: BP [133/72], HR [121], RR [16], Sat [133/72], Temp [97.6F] - General: Lying in bed, Speaking in full sentences, AAOx3 - HEENT: NC, AT, PERRLA - CVS: Tachycardia, +S1S2 - Lungs: Fair air entry bilaterally, No appreciable wheezing / rales / rhonchi - Abdomen: Soft, Non-distended, Non-tender - Extremities: No lower extremity edema, No calf tenderness - Neuro: No focal motor or sensory deficit - Skin: No visible rashes Labs: See below Imaging: See below EKG: See below Assessment and Plan: Thoughts of self-harm - Patient has a history of bipolar depression - Has been admitted to inpatient mental health unit under the care of psychiatry - Currently being managed by psychiatry IDDM1 - Patient reports that she takes long-acting insulin and short acting insulin at home - For her short acting insulin, she does carb counting - Patient is requesting to have her insulin sliding scale adjusted to account for her additional carbs - Lab work completed yesterday did not reveal any anion gap or suppression of bicarbonate to suggest DKA - Will repeat lab work including beta hydroxybutyrate - Will c/w ISS - Will start Levemir Asthma - No evidence of exacerbation - Continue with inhaled therapy as ordered; inhaled therapy frequency has been adjusted Tachycardia - Currently patient remains asymptomatic - Patient is a long-standing history of tachycardia - Reports that shes the process of having this worked up with her primary care provider as an outpatient DVT prophylaxis - Will c/w early ambulation Female float operator was present for the duration of his history and physical examination Thank you for this consultation. Hospital service will now sign off,; please reconsult as needed Vital Signs Vital Signs Date Time Temp Pulse Resp B/P (MAP) Pulse Ox O2 Delivery O2 Flow Rate FiO2 04/23/21 06:40 97.6 121 16 133/72 (92) 99 Room Air Laboratory Data Labs 24H Laboratory Tests 2 04/22/21 17:14: Bedside Glucose (Misc Panel) 199H 04/22/21 22:10: Bedside Glucose (Misc Panel) 363H 04/23/21 06:37: Bedside Glucose (Misc Panel) 141H 04/23/21 12:18: Bedside Glucose (Misc Panel) 266H 04/23/21 16:03: CBC/BMP Home Medications Scheduled Ergocalciferol (Vitamin D2) (Vitamin D2) 50,000 Units Cap, 50,000 UNITS PO QWEEK TUESDAY Insulin Degludec (Tresiba Flextouch U-100) 100 Unit/1 Ml Insuln.pen, 30 UNIT SC QAM Insulin Lispro (Humalog Kwikpen U-100) 100 Unit/1 Ml Insuln.pen, 1 DOSE SC ACHS PER SLIDING SCALE, 1 UNIT PER 10 GRAMS OF CARBS Scheduled PRN Albuterol Sulf (Albuterol Sulfate) 2.5 Mg/3 Ml Vial.neb, 1 VIAL NEB Q4HP PRN for SOB/WHEEZING Albuterol Sulfate (Proair Hfa) 8.5 Gm Hfa.aer.ad, 1 PUFF PO DAILY PRN for SHORTNESS OF BREATH Allergies Coded Allergies: No Known Allergies (Unverified , 11/21/20) EUSEBIA WEATHERS MD Apr 23, 2021 16:40
[2021-04-23 17:18] LABS: ACETONE/KETONE 8.65 MG/DL (<2.81); BLOOD UREA NITROGEN 15 MG/DL (7-18); CALCIUM LEVEL 9.7 MG/DL (8.5-10.1); CARBON DIOXIDE LEVEL 25 MEQ/L (21-32); CHLORIDE LEVEL 103 MEQ/L (98-107); CREATININE FOR GFR 0.91 MG/DL (0.55-1.30); GLOMERULAR FILTRATION RATE > 60.0 (>60); GLUCOSE, FASTING 365 MG/DL (70-100); PHOSPHORUS LEVEL 3.5 MG/DL (2.5-4.9); POTASSIUM SERUM 5.1 MEQ/L (3.5-5.1); SODIUM LEVEL 136 MEQ/L (136-145)
[2021-04-23 19:04] VITALS: BP 118/78
[2021-04-23] MEDS: OXcarbazepine 150 MG TAB PO SCH ×2 (21:00→23:09)
[2021-04-24 06:45] VITALS: BP 103/54
[2021-04-24] MEDS: HumaLOG INSULIN (NovoLOG) PER UNIT SC SCH ×4 (07:03→21:00)
[2021-04-24] MEDS: LEVEMIR (INSULIN DETEMIR) 1 UNITS/0.01ML SC SCH (09:22)
[2021-04-24] MEDS: OXcarbazepine 150 MG TAB PO SCH ×3 (09:23→22:49)
[2021-04-24] MEDS: ALBUTEROL 90 MCG/ACT 8GM HFA INHALER INH PRN (12:54)
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
[2021-04-24 18:28] VITALS: BP 132/86
[2021-04-24] MEDS: hydrOXYzine 50 MG TAB PO PRN (21:33)
[2021-04-24] MEDS: IBUPROFEN 600MG TAB PO PRN (22:49)
[2021-04-25 06:00] VITALS: BP 119/62
[2021-04-25] MEDS: HumaLOG INSULIN (NovoLOG) PER UNIT SC SCH ×4 (07:07→20:23)
[2021-04-25] MEDS: LIDOCAINE 5% (LIDODERM) PATCH TD SCH (08:12)
[2021-04-25] MEDS: OXcarbazepine 150 MG TAB PO SCH ×2 (08:12→20:22)
[2021-04-25] MEDS: LEVEMIR (INSULIN DETEMIR) 1 UNITS/0.01ML SC SCH (08:12)
[2021-04-25] MEDS: IBUPROFEN 600MG TAB PO PRN ×2 (11:58→23:26)
[2021-04-25] MEDS: hydrOXYzine 50 MG TAB PO PRN ×2 (15:37→23:26)
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
[2021-04-25 19:13] VITALS: BP 125/83
[2021-04-25] MEDS: **NOTE PATIENT COMMENT** MISC XX SCH (20:24)
[2021-04-26 06:00] VITALS: BP 108/61
[2021-04-26] MEDS: HumaLOG INSULIN (NovoLOG) PER UNIT SC SCH ×4 (07:18→21:10)
[2021-04-26] MEDS: OXcarbazepine 150 MG TAB PO SCH ×2 (09:04→21:09)
[2021-04-26] MEDS: LIDOCAINE 5% (LIDODERM) PATCH TD SCH (09:04)
[2021-04-26] MEDS: LEVEMIR (INSULIN DETEMIR) 1 UNITS/0.01ML SC SCH (09:11)
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
[2021-04-26] MEDS ORDERED: CEFDINIR 300 MG CAP (OMNICEF) PO ONE (15:00)
[2021-04-26] MEDS: hydrOXYzine 50 MG TAB PO PRN (15:09)
[2021-04-26 18:55] VITALS: BP 138/88
[2021-04-26] MEDS: CEFDINIR 300 MG CAP (OMNICEF) PO SCH (21:09)
[2021-04-26] MEDS: **NOTE PATIENT COMMENT** MISC XX SCH (21:21)
[2021-04-27 06:22] VITALS: BP 119/65
[2021-04-27] MEDS: HumaLOG INSULIN (NovoLOG) PER UNIT SC SCH (06:57)
[2021-04-27] MEDS: LEVEMIR (INSULIN DETEMIR) 1 UNITS/0.01ML SC SCH (08:13)
[2021-04-27] MEDS: OXcarbazepine 150 MG TAB PO SCH (08:14)
[2021-04-27] MEDS: LIDOCAINE 5% (LIDODERM) PATCH TD SCH (08:14)
[2021-04-27] MEDS: CEFDINIR 300 MG CAP (OMNICEF) PO SCH (08:15)
[2021-04-27] MEDS ORDERED: NICO21PAT TD (10:18)
[2021-04-27] MEDS ORDERED: OXCA150T21 PO (10:18)
[2021-04-27] MEDS ORDERED: LIDO5TD TD (10:18)
[2021-04-27] MEDS ORDERED: HYDR50TA70 PO (10:18)
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
[2021-04-27] MEDS ORDERED: CEFD1CAP8 PO (12:18)
== END 2021-04-27 11:10 | disposition home or self-care (01) | DRG 885 ==
LOC: M ED 11:03 → M ED INP 19:31 → M PSY 20:46
PROVIDERS: ADMIT Student in an Organized Health Care Education/Training Program; ATTEND Student in an Organized Health Care Education/Training Program
DX: F31.9 Bipolar disorder, unspecified (principal); R45.851 Suicidal ideations; F60.89 Other specific personality disorders; F12.10 Cannabis abuse, uncomplicated; F17.290 Nicotine dependence, other tobacco product, uncomplicated; F43.10 Post-traumatic stress disorder, unspecified; F41.9 Anxiety disorder, unspecified; Z63.4 Disappearance and death of family member; Z62.810 Personal history of physical and sexual abuse in childhood; Z91.5 Personal history of self-harm; E10.42 Type 1 diabetes mellitus with diabetic polyneuropathy; J45.909 Unspecified asthma, uncomplicated; Z81.8 Family history of other mental and behavioral disorders; Z79.4 Long term (current) use of insulin; Z79.899 Other long term (current) drug therapy; Z20.822 Contact with and (suspected) exposure to COVID-19; R00.0 Tachycardia, unspecified; F60.3 Borderline personality disorder; F44.9 Dissociative and conversion disorder, unspecified; Z63.0 Problems in relationship with spouse or partner

== ENCOUNTER → 2021-04-30 | Outpatient (CLI) | payer OTHER ==
[~2021-04-30] MED LIST changes: +ALBU83IN NEB; +CEFD1CAP8 PO; +HYDR50TA70 PO; +LIDO5TD TD; +NICO21PAT TD; +OXCA150T21 PO; +PROAAER10 PO
--- NOTE | 2021-04-30 11:48 | REP ---
INDICATION: BILATERAL BREAST PAIN. NO FOCAL ABNORMALITY. COMPARISON: None TECHNIQUE: Digital mammography was carried out bilaterally in the CC and MLO projections using both 2D and 3D modalities. The patient complains of bilateral diffuse waxing and waning breast pain for 2-3 years. There is no complaint of focused pain or a focused palpable abnormality. FINDINGS: Scattered dense fibroglandular elements are seen bilaterally to such a degree that the sensitivity of the mammogram in detecting cancer is decreased. No suspicious or dominant density is seen. No microcalcification or architectural distortion is seen. No worrisome skin change is appreciated. 3-D tomosynthesis shows no additional finding. The Volpara volumetric breast density pattern is D. IMPRESSION: BIRADS/ACR category 1 negative mammogram. This patient's Tyrer-Cuzick lifetime breast cancer risk assessment score is 10.3%. This mammogram was interpreted with the aid of an FDA-approved computer-aided detection system. The patient states she had a clinical breast exam in over a year. The patient letter being requested is M2. RECOMMENDATION: Repeat screening mammography recommended 1 year (for women over 40). <Electronically signed by Valeriy Banks > 04/30/21 [id number]
== END ==
LOC: M WHC 11:04
PROVIDERS: ATTEND Family Medicine
DX: N64.4 Mastodynia (principal)
CPT/HCPCS: 77066; G0279

== ENCOUNTER 2021-08-03 10:05 | Emergency (ER) | payer OTHER ==
[~2021-08-03] VITALS: Ht 149.9 cm; Wt 60.0 kg
[~2021-08-03 10:05] MED LIST changes: +PROAAER10 INH; -PROAAER10 PO
[2021-08-03] MEDS ORDERED: ONDANSETRON 4MG/2ML VIAL IV ONE (13:20)
[2021-08-03] MEDS ORDERED: NS 1,000 ML IV ONE (13:20)
[2021-08-03 14:01] LABS: VENOUS HCO3 25.4 MEQ/L (23.0-27.0); VENOUS O2 SATURATION 47.3 % (60.0-80.0); VENOUS PARTIAL PRESSURE CO2 44.2 mmHg (38.0-50.0); VENOUS PARTIAL PRESSURE O2 26.1 mmHg (30.0-50.0); VENOUS PH 7.378 UNITS (7.330-7.430); VENOUS STANDARD HCO3 23.1 MEQ/L; VENOUS TOTAL CO2 26.8 MEQ/L (24.0-28.0)
[2021-08-03 14:04] LABS: BASO % 0.2 % (0.0-1.0); HEMOGLOBIN 15.7 g/dl (12.0-15.5); LYMPH # 1.6 10^3/uL (1.5-5.0); LYMPH % 13.4 % (24.0-44.0); MEAN CORPUSCULAR HGB CONC 33.4 g/dl (32.0-36.5); MEAN CORPUSCULAR VOLUME 83.9 fl (80.0-96.0); MONO # 0.4 10^3/uL (0.0-0.8); MONO % 3.7 % (2.0-8.0); NEUTROPHILS # 9.9 10^3/uL (1.5-8.5); NEUTROPHILS % 82.3 % (36.0-66.0); PLATELET COUNT, AUTOMATED 362 10^3/uL (150-450)
[2021-08-03 14:38] LABS: ACETONE/KETONE 29.06 MG/DL (<2.81)
[2021-08-03 15:03] LABS: APPEARANCE, URINE HAZY (CLEAR); BACTERIA, URINE AUTO NEGATIVE (NEGATIVE); BILIRUBIN, URINE AUTO NEGATIVE (NEGATIVE); BLOOD, URINE BLOOD NEGATIVE (NEGATIVE); COLOR, URINE YELLOW (YELLOW); GLUCOSE, URINE (UA) AUTO 3+ mg/dL (NEGATIVE); KETONE, URINE AUTO 2+ mg/dL (NEGATIVE); LEUKOCYTE ESTERASE, URINE AUTO NEGATIVE (NEGATIVE); MUCUS, URINE MODERATE (NEGATIVE); NITRITE, URINE AUTO NEGATIVE (NEGATIVE); PROTEIN, URINE AUTO 3+ mg/dL (NEGATIVE); RBC, URINE AUTO 0 /HPF (0-3); SPECIFIC GRAVITY URINE AUTO 1.038 (1.002-1.035); SQUAMOUS EPITHELIAL CELL UR AU 8 /HPF (0-6); UROBILINOGEN, URINE AUTO 0.2 mg/dL (0.0-2.0); WBC, URINE AUTO 4 /HPF (0-3)
[2021-08-03 15:25] LABS: HCG, SERUM QUALITATIVE NEGATIVE (NEGATIVE)
[2021-08-03 15:41] LABS: BLOOD UREA NITROGEN 18 MG/DL (7-18); CALCIUM LEVEL 9.5 MG/DL (8.5-10.1); CARBON DIOXIDE LEVEL 22 MEQ/L (21-32); CHLORIDE LEVEL 101 MEQ/L (98-107); CREATININE FOR GFR 0.94 MG/DL (0.55-1.30); GLOMERULAR FILTRATION RATE > 60.0 (>60); GLUCOSE, FASTING 278 MG/DL (70-100); POTASSIUM SERUM 5.5 MEQ/L (3.5-5.1); SODIUM LEVEL 134 MEQ/L (136-145)
--- NOTE | 2021-08-03 16:01 | REP ---
INDICATION: cough, fevers. COMPARISON: 07/22/2020 the latest prior also portable TECHNIQUE: Portable FINDINGS: The technique utilized in obtaining the radiograph has magnified the cardiac silhouette and accentuated the interstitial markings. The superior mediastinal structures are midline. The cardiac silhouette is unremarkable in size, shape, and position. The diaphragmatic surfaces of the lungs are regular, and the costophrenic angles are clear. The pulmonary alejo are clear. The imaged osseous structures are intact. IMPRESSION: There is no acute cardiopulmonary disease. <Electronically signed by Valeriy Banks > 08/03/21 [id number]
[2021-08-03 17:45] VITALS: BP 123/76
[2021-08-04] MEDS ORDERED: ARIP1TAB6 PO (08:36)
== END 2021-08-03 17:55 | disposition home or self-care (01) ==
LOC: M ED 10:05
DX: R11.2 Nausea with vomiting, unspecified (principal); R19.7 Diarrhea, unspecified; Z20.822 Contact with and (suspected) exposure to COVID-19; E10.9 Type 1 diabetes mellitus without complications; F31.9 Bipolar disorder, unspecified; Z86.39 Personal history of other endocrine, nutritional and metabolic disease; Z79.899 Other long term (current) drug therapy; Z79.4 Long term (current) use of insulin
CPT/HCPCS: 71045; 80048; 81001; 82010; 82803; 83930; 84703; 85025; 87798; 96361; 96374; 99284; J2405

== ENCOUNTER 2021-08-15 12:46 | Emergency (ER) | payer OTHER ==
[~2021-08-15] VITALS: Ht 149.9 cm; Wt 61.3 kg
[~2021-08-15 12:46] MED LIST changes: +ARIP1TAB6 PO; -CEFD1CAP8 PO; +CEFD300C41 PO
[2021-08-15 13:38] LABS: VENOUS BASE EXCESS -0.1 (-2.0-2.0); VENOUS HCO3 25.2 MEQ/L (23.0-27.0); VENOUS O2 SATURATION 60.6 % (60.0-80.0); VENOUS PARTIAL PRESSURE CO2 43.2 mmHg (38.0-50.0); VENOUS PARTIAL PRESSURE O2 31.3 mmHg (30.0-50.0); VENOUS PH 7.383 UNITS (7.330-7.430); VENOUS STANDARD HCO3 23.4 MEQ/L; VENOUS TOTAL CO2 26.5 MEQ/L (24.0-28.0)
[2021-08-15 13:45] LABS: BASO % 0.2 % (0.0-1.0); HEMATOCRIT 45.1 % (36.0-47.0); LYMPH # 2.2 10^3/uL (1.5-5.0); LYMPH % 17.5 % (24.0-44.0); MEAN CORPUSCULAR HGB CONC 33.3 g/dl (32.0-36.5); MEAN CORPUSCULAR VOLUME 84.3 fl (80.0-96.0); MONO # 0.6 10^3/uL (0.0-0.8); MONO % 4.9 % (2.0-8.0); NEUTROPHILS # 9.7 10^3/uL (1.5-8.5); PLATELET COUNT, AUTOMATED 423 10^3/uL (150-450); RED BLOOD COUNT 5.35 10^6/uL (4.00-5.40); WHITE BLOOD COUNT 12.7 10^3/uL (4.0-10.0)
[2021-08-15 14:02] LABS: HEMOGLOBIN A1c 10.5 %
[2021-08-15 14:07] LABS: OSMOLALITY SERUM 284 MOSM/KG (275-295)
[2021-08-15 14:11] LABS: ACETONE/KETONE 14.47 MG/DL (<2.81); ALBUMIN 3.7 GM/DL (3.2-5.2); ALT/SGPT 19 U/L (12-78); BILIRUBIN,DIRECT 0.1 MG/DL (0.0-0.2); BILIRUBIN,TOTAL 0.1 MG/DL (0.2-1.0); BLOOD UREA NITROGEN 10 MG/DL (7-18); CALCIUM LEVEL 9.9 MG/DL (8.5-10.1); CARBON DIOXIDE LEVEL 29 MEQ/L (21-32); CHLORIDE LEVEL 95 MEQ/L (98-107); CREATININE FOR GFR 0.78 MG/DL (0.55-1.30); GLOMERULAR FILTRATION RATE > 60.0 (>60); GLUCOSE, FASTING 276 MG/DL (70-100); LIPASE 21 U/L (73-393); MAGNESIUM LEVEL 1.8 MG/DL (1.8-2.4); PHOSPHORUS LEVEL 3.4 MG/DL (2.5-4.9); POTASSIUM SERUM 3.4 MEQ/L (3.5-5.1); SODIUM LEVEL 132 MEQ/L (136-145); TOTAL PROTEIN 7.6 GM/DL (6.4-8.2)
[2021-08-15] MEDS ORDERED: NS 1,000 ML IV ONE (14:15)
[2021-08-15] MEDS ORDERED: CIPROFLOXACIN 400 MG in IV 1 EA IV ONE (14:15)
[2021-08-15] MEDS ORDERED: HumuLIN R (REGULAR) INSULIN (NovoLIN R) **100U/ML** PER UNIT IV ONE (14:15)
[2021-08-15] MEDS ORDERED: METOCLOPRAMIDE INJ 10MG/2ML VIAL (J2765 PER 1) IV ONE (14:25)
[2021-08-15 17:15] VITALS: BP 130/87
[2021-08-15] MEDS ORDERED: CIPR-249 PO (17:41)
[2021-08-15] MEDS ORDERED: REGL10TA6 PO (17:41)
== END 2021-08-15 18:18 | disposition home or self-care (01) ==
LOC: M ED 12:46
DX: E10.65 Type 1 diabetes mellitus with hyperglycemia (principal); N39.0 Urinary tract infection, site not specified; J45.909 Unspecified asthma, uncomplicated; F31.9 Bipolar disorder, unspecified; F41.9 Anxiety disorder, unspecified; F43.10 Post-traumatic stress disorder, unspecified; Z79.899 Other long term (current) drug therapy; Z79.4 Long term (current) use of insulin
CPT/HCPCS: 80048; 80076; 81001; 82010; 82803; 83036; 83690; 83735; 83930; 84100; 85025; 87088; 87186; 93005; 93041; 94760; 96365; 96366; 96375; 99285; J0744; J2765

== ENCOUNTER 2021-09-01 08:19 | Day surgery (SDC) | payer OTHER ==
[~2021-09-01] VITALS: Ht 149.9 cm; Wt 62.6 kg
[~2021-09-01 08:19] MED LIST changes: +ABIL1TAB11 PO; +CIPR-249 PO; +LACT10SO3 PO; +NS 1,000 ML IV ONE; +REGL10TA6 PO
[2021-09-01] MEDS ORDERED: fentaNYL 100 MCG/2 ML INJECTION (J3010) As Ordered ONE (08:57)
[2021-09-01] MEDS ORDERED: LIDOCAINE 2% 100MG/5ML SDV (FOR ANES.) As Ordered ONE (08:57)
[2021-09-01] MEDS ORDERED: propofoL 500 MG/50 ML VIAL As Ordered ONE (08:57)
[2021-09-01] MEDS ORDERED: PHENYLephrine 500MCG 5ML (100MCG/ML) SYRINGE As Ordered ONE (10:45)
[2021-09-01 11:12] VITALS: BP 117/71
== END 2021-09-01 11:14 | disposition home or self-care (01) ==
LOC: M OPP 08:19
PROVIDERS: ATTEND Internal Medicine Gastroenterology
DX: K58.1 Irritable bowel syndrome with constipation (principal); K64.8 Other hemorrhoids; R11.0 Nausea; R12 Heartburn; Z79.4 Long term (current) use of insulin; Z79.899 Other long term (current) drug therapy; Z86.16 Personal history of COVID-19; Z87.891 Personal history of nicotine dependence
CPT/HCPCS: 43235; 45378; J2370; J3010

== ENCOUNTER 2021-09-11 08:46 | Observation (INO) | payer OTHER ==
[~2021-09-11] VITALS: Ht 149.9 cm; Wt 57.5 kg
[~2021-09-11 08:46] MED LIST changes: -NS 1,000 ML IV ONE
[2021-09-11] MEDS ORDERED: NS 1,000 ML IV ONE (09:10)
[2021-09-11] MEDS ORDERED: HALOPERIDOL 5MG/ML VIAL (J1630 PER 1) IV ONE (09:10)
[2021-09-11 10:02] LABS: VENOUS O2 SATURATION 46.6 % (60.0-80.0); VENOUS PARTIAL PRESSURE CO2 29.3 mmHg (38.0-50.0); VENOUS PARTIAL PRESSURE O2 23.4 mmHg (30.0-50.0); VENOUS PH 7.453 UNITS (7.330-7.430); VENOUS STANDARD HCO3 21.2 MEQ/L; VENOUS TOTAL CO2 20.9 MEQ/L (24.0-28.0)
[2021-09-11 10:04] LABS: BASO # 0.1 10^3/uL (0.0-0.2); BASO % 0.4 % (0.0-1.0); HEMATOCRIT 59.1 % (36.0-47.0); HEMOGLOBIN 19.8 g/dl (12.0-15.5); LYMPH % 21.9 % (24.0-44.0); MEAN CORPUSCULAR HEMOGLOBIN 27.8 pg (27.0-33.0); MEAN CORPUSCULAR HGB CONC 33.5 g/dl (32.0-36.5); MEAN CORPUSCULAR VOLUME 83.1 fl (80.0-96.0); MONO # 0.7 10^3/uL (0.0-0.8); MONO % 5.2 % (2.0-8.0); NEUTROPHILS # 9.9 10^3/uL (1.5-8.5); NEUTROPHILS % 72.1 % (36.0-66.0); PLATELET COUNT, AUTOMATED 519 10^3/uL (150-450); RED BLOOD COUNT 7.11 10^6/uL (4.00-5.40); WHITE BLOOD COUNT 13.7 10^3/uL (4.0-10.0)
[2021-09-11 10:51] LABS: HCG, SERUM QUALITATIVE NEGATIVE (NEGATIVE)
[2021-09-11 10:54] LABS: ACETONE/KETONE 35.76 MG/DL (<2.81); ALBUMIN 5.2 GM/DL (3.2-5.2); ALT/SGPT 28 U/L (12-78); BILIRUBIN,DIRECT 0.2 MG/DL (0.0-0.2); BILIRUBIN,TOTAL 0.5 MG/DL (0.2-1.0); BLOOD UREA NITROGEN 36 MG/DL (7-18); CALCIUM LEVEL 11.6 MG/DL (8.5-10.1); CARBON DIOXIDE LEVEL 19 MEQ/L (21-32); CHLORIDE LEVEL 91 MEQ/L (98-107); CREATININE FOR GFR 1.43 MG/DL (0.55-1.30); GLOMERULAR FILTRATION RATE 58.1 (>60); GLUCOSE, FASTING 234 MG/DL (70-100); LIPASE 28 U/L (73-393); POTASSIUM SERUM 3.8 MEQ/L (3.5-5.1); SODIUM LEVEL 128 MEQ/L (136-145); TOTAL PROTEIN 10.7 GM/DL (6.4-8.2)
[2021-09-11] MEDS ORDERED: LIDOCAINE 1% MDV 20ML VIAL As Ordered ONE (10:59)
[2021-09-11 12:16] LABS: HEMOGLOBIN A1c 10.4 %
[2021-09-11] MEDS ORDERED: ACETAMINOPHEN TAB 650MG DOSE (2X325MG) PO PRN (12:45)
[2021-09-11] MEDS ORDERED: GLUCAGON INJ 1MG VIAL SC PRN (12:45)
[2021-09-11] MEDS ORDERED: NS 1,000 ML IV SCH (12:45)
[2021-09-11] MEDS ORDERED: GLUCOSE 4GM CHEW TABLET PO PRN (12:45)
[2021-09-11] MEDS ORDERED: DEXTROSE 50% 50 ML SYRINGE IV PRN (12:45)
[2021-09-11] MEDS ORDERED: HOME MED LIST COMPLETE! XX SCH (12:50)
[2021-09-11] MEDS ORDERED: ALBUTEROL 90 MCG/ACT 8GM HFA INHALER INH PRN (13:00)
[2021-09-11] MEDS ORDERED: LEVEMIR (INSULIN DETEMIR) 1 UNITS/0.01ML SC ONE (13:00)
[2021-09-11] MEDS ORDERED: ALBUTEROL SULFATE 2.5 MG/0.5 ML INH NEB SOLN NEB PRN (13:00)
[2021-09-11] MEDS ORDERED: ONDANSETRON 4MG/2ML VIAL IV PRN (13:00)
[2021-09-11] MEDS ORDERED: GI COCKTAIL 50ML BTL(HYOSCYAMINE/MAALOX/LIDOCAINE VISCOUS)(1:3:1) PO ONE (13:00)
[2021-09-11 16:05] LABS: BLOOD UREA NITROGEN 30 MG/DL (7-18); CALCIUM LEVEL 8.9 MG/DL (8.5-10.1); CARBON DIOXIDE LEVEL 22 MEQ/L (21-32); CHLORIDE LEVEL 101 MEQ/L (98-107); CREATININE FOR GFR 0.88 MG/DL (0.55-1.30); GLOMERULAR FILTRATION RATE > 60.0 (>60); GLUCOSE, FASTING 216 MG/DL (70-100); POTASSIUM SERUM 3.3 MEQ/L (3.5-5.1); SODIUM LEVEL 135 MEQ/L (136-145)
[2021-09-11 17:53] LABS: AMPHETAMINES LEVEL URINE NEGATIVE (NEGATIVE); BARBITURATES URINE NEGATIVE (NEGATIVE); BENZODIAZEPINES URINE NEGATIVE (NEGATIVE); CANNABINOIDS URINE POSITIVE (NEGATIVE); COCAINE METABOLITE URINE NEGATIVE (NEGATIVE); METHADONE URINE NEGATIVE (NEGATIVE); OPIATES URINE NEGATIVE (NEGATIVE); PHENCYCLIDINE URINE NEGATIVE (NEGATIVE)
[2021-09-11] MEDS: KCL 20MEQ in NS 1000ML 1,000 ML IV SCH ×2 (18:06→23:32)
[2021-09-11] MEDS: HumaLOG INSULIN (NovoLOG) PER UNIT SC SCH (18:07)
[2021-09-11] MEDS ORDERED: HumaLOG INSULIN (NovoLOG) PER UNIT SC SCH (21:00)
[2021-09-11] MEDS: HEPARIN SOD (PORCINE) 5000UNITS/ML 1ML VIAL/SYRINGE SC SCH (22:00)
[2021-09-12] MEDS: KCL 20MEQ in NS 1000ML 1,000 ML IV SCH (03:41)
[2021-09-12] MEDS: HEPARIN SOD (PORCINE) 5000UNITS/ML 1ML VIAL/SYRINGE SC SCH (03:42)
[2021-09-12] MEDS: HumaLOG INSULIN (NovoLOG) PER UNIT SC SCH (07:30)
[2021-09-12] MEDS ORDERED: LEVEMIR (INSULIN DETEMIR) 1 UNITS/0.01ML SC SCH (09:00)
[2021-09-12 10:35] LABS: HEMATOCRIT 39.1 % (36.0-47.0); MEAN CORPUSCULAR HEMOGLOBIN 28.3 pg (27.0-33.0); MEAN CORPUSCULAR HGB CONC 33.8 g/dl (32.0-36.5); MEAN CORPUSCULAR VOLUME 83.9 fl (80.0-96.0); RED BLOOD COUNT 4.66 10^6/uL (4.00-5.40); WHITE BLOOD COUNT 10.6 10^3/uL (4.0-10.0)
[2021-09-12 10:36] LABS: HEMOGLOBIN 13.2 g/dl (12.0-15.5)
[2021-09-12 10:37] LABS: PLATELET COUNT, AUTOMATED 324 10^3/uL (150-450)
[2021-09-12 11:01] LABS: BLOOD UREA NITROGEN 10 MG/DL (7-18); CALCIUM LEVEL 8.2 MG/DL (8.5-10.1); CARBON DIOXIDE LEVEL 23 MEQ/L (21-32); CHLORIDE LEVEL 106 MEQ/L (98-107); CREATININE FOR GFR 0.58 MG/DL (0.55-1.30); GLOMERULAR FILTRATION RATE > 60.0 (>60); GLUCOSE, FASTING 144 MG/DL (70-100); POTASSIUM SERUM 3.6 MEQ/L (3.5-5.1); SODIUM LEVEL 138 MEQ/L (136-145)
[2021-09-12] MEDS ORDERED: ONDA4TAB6 PO ×2 (11:53→14:17)
[2021-09-12 12:11] VITALS: BP 131/86
== END 2021-09-12 13:51 | disposition home or self-care (01) ==
LOC: M ED 08:46 → M ED INP 08:47 → ENRESERV 17:05 → CANRESERV 21:28
PROVIDERS: ADMIT Family Medicine; ATTEND Family Medicine
DX: N17.9 Acute kidney failure, unspecified (principal); E86.0 Dehydration; F12.288 Cannabis dependence with other cannabis-induced disorder; E10.65 Type 1 diabetes mellitus with hyperglycemia; F31.9 Bipolar disorder, unspecified; E87.1 Hypo-osmolality and hyponatremia; F20.9 Schizophrenia, unspecified; J45.909 Unspecified asthma, uncomplicated; Z79.899 Other long term (current) drug therapy; Z79.4 Long term (current) use of insulin
CPT/HCPCS: 36415; 36573; 80048; 80076; 81001; 82010; 82803; 83036; 83690; 84703; 85025; 85027; 87086; 93005; 93041; 94760; 96361; 96365; 96366; 96375; 99285; C1751; J1630; J1642; J1644; J2405; J3480

== ENCOUNTER → 2021-11-05 | Outpatient (REF) | payer OTHER ==
[~2021-11-05] MED LIST changes: +ONDA4TAB6 PO
[2021-11-05 16:58] LABS: EOS % 0.4 % (0.0-3.0); HEMOGLOBIN 13.5 g/dl (12.0-15.5); LYMPH # 3.1 10^3/uL (1.5-5.0); LYMPH % 33.8 % (24.0-44.0); MEAN CORPUSCULAR HEMOGLOBIN 28.8 pg (27.0-33.0); MEAN CORPUSCULAR HGB CONC 32.9 g/dl (32.0-36.5); MEAN CORPUSCULAR VOLUME 87.4 fl (80.0-96.0); MONO # 0.7 10^3/uL (0.0-0.8); MONO % 7.5 % (2.0-8.0); NEUTROPHILS # 5.4 10^3/uL (1.5-8.5); PLATELET COUNT, AUTOMATED 305 10^3/uL (150-450); RED BLOOD COUNT 4.69 10^6/uL (4.00-5.40); WHITE BLOOD COUNT 9.3 10^3/uL (4.0-10.0)
[2021-11-05 17:21] LABS: ALBUMIN 3.6 GM/DL (3.2-5.2); ALT/SGPT 19 U/L (12-78); BILIRUBIN,TOTAL 0.1 MG/DL (0.2-1.0); BLOOD UREA NITROGEN 12 MG/DL (7-18); CALCIUM LEVEL 9.7 MG/DL (8.5-10.1); CARBON DIOXIDE LEVEL 29 MEQ/L (21-32); CHLORIDE LEVEL 110 MEQ/L (98-107); COMPLEMENT C3 151 MG/DL (90-180); COMPLEMENT C4 26 MG/DL (10-40); CREATININE FOR GFR 0.76 MG/DL (0.55-1.30); GLOMERULAR FILTRATION RATE > 60.0 (>60); GLUCOSE, FASTING 134 MG/DL (70-100); SODIUM LEVEL 142 MEQ/L (136-145)
[2021-11-05 17:28] LABS: AMORPHOUS SEDIMENT SMALL (NEGATIVE); APPEARANCE, URINE HAZY (CLEAR); BACTERIA, URINE AUTO NEGATIVE (NEGATIVE); BILIRUBIN, URINE AUTO NEGATIVE (NEGATIVE); BLOOD, URINE BLOOD NEGATIVE (NEGATIVE); COLOR, URINE YELLOW (YELLOW); GLUCOSE, URINE (UA) AUTO 1+ mg/dL (NEGATIVE); KETONE, URINE AUTO NEGATIVE (NEGATIVE); LEUKOCYTE ESTERASE, URINE AUTO NEGATIVE (NEGATIVE); MUCUS, URINE SMALL (NEGATIVE); NITRITE, URINE AUTO NEGATIVE (NEGATIVE); PROTEIN, URINE AUTO NEGATIVE (NEGATIVE); RBC, URINE AUTO 0 /HPF (0-3); SPECIFIC GRAVITY URINE AUTO 1.014 (1.002-1.035); SQUAMOUS EPITHELIAL CELL UR AU 0 /HPF (0-6); UROBILINOGEN, URINE AUTO 0.2 mg/dL (0.0-2.0); WBC, URINE AUTO 4 /HPF (0-3)
[2021-11-05 17:42] LABS: CREATININE,RANDOM URINE 78.2 MG/DL; TOTAL PROTEIN,RANDOM URINE 7.1 MG/DL (0.0-12.0)
[2021-11-05 17:56] LABS: ERYTHROCYTE SEDIMENTATION RATE 28 mm/hr (0-20)
== END ==
LOC: M SFHCRHEU 14:24
PROVIDERS: ATTEND Internal Medicine Rheumatology
DX: R76.8 Other specified abnormal immunological findings in serum (principal); M35.3 Polymyalgia rheumatica
CPT/HCPCS: 36415; 80053; 81001; 82570; 84156; 85025; 85652; 86140; 86160; G0463